=== PATIENT | female | born 1955 | race Caucasian/White ===

== ENCOUNTER 2022-11-10 13:39 | Outpatient (CLI) | payer MEDICARE, SELFPAY ==
--- NOTE | 2022-11-10 14:30 | MR_ITS ---
[address] [address] Phone:?[phone] Fax:?[phone] Referring Physician Information: Luis Jamison M.D. [id number] [facility] [address] Phone:?[phone] Fax:?[phone] Patient:Kendrick Ceballos D.O.B:?1955 Sex:?Female Phone:?[phone] [facility] MRN:?[id number] Exam Date:?11/10/2022 ? EXAM: MRI EXAMINATION OF THE RIGHT SHOULDER CLINICAL INFORMATION: Right shoulder pain. History of injuries. No history of surgery to this area. Possible rotator cuff tear. TECHNICAL INFORMATION: Coronal STIR as well as axial, sagittal and coronal PD and T2-weighted images were acquired. INTERPRETATION: Bones: There is no Hill-Sachs impaction deformity. No other evidence for an occult fracture or osseous contusion. No other bone marrow edema pattern identified. Rotator Cuff: There are mild to moderate changes of supraspinatus tendinopathy. Series 8 image 4 as well as series 6 images 11 and 12 demonstrate a 0.3 cm AP by 0.4 cm mediolateral undersurface partial-thickness tear involving the mid supraspinatus tendon insertion. This appears to involve one half of the tendon fiber thickness. Mild to moderate infraspinatus tendinopathy. Series 804 demonstrate a 3 mm shallow intrasubstance partial tear of the anterior tendon. The teres minor tendon is intact. The subscapularis tendon is intact. No appreciable rotator cuff muscle belly atrophy. Coracoacromial arch: There is no discrete subacromial osseous spur. The bony acromiohumeral interval is measuring 8 mm. There is no thickening identified of the coracoacromial ligament. Acromioclavicular joint: There is a moderate appearance of AC joint DJD. Associated undersurface spurring and resultant mild underlying supraspinatus deformity. Moderate thickening and edema signal involves the subacromial/subdeltoid bursa areas. Biceps tendon: The long head biceps tendon is intact and nondisplaced from the bicipital groove. Glenohumeral joint and labrum: No significant glenohumeral joint effusion. No discrete loose body within the joint. Changes of chondromalacia and associated full-thickness cartilage loss along the superior posterior periphery of the glenoid. Series 6 image 17 demonstrate an 8 mm segment of grade II to III chondromalacia overlying the super posterior aspect of the humeral head. There is tearing identified throughout the superior aspect of the labrum. Tearing continues superior posteriorly to the 10 o'clock position. No discrete paralabral cyst is identified. CONCLUSION: 1. Mild to moderate supraspinatus and infraspinatus tendinopathy. A very small undersurface partial-thickness tear of the supraspinatus insertion involves one half of the tendon fiber thickness. A very small and shallow intrasubstance partial tear involves the anterior infraspinatus tendon. 2. Moderate AC joint DJD with resultant mild underlying supraspinatus deformity. Moderate subacromial/subdeltoid bursitis. 3. Intact long head biceps tendon and without subluxation from the bicipital groove. 4. Chondromalacia with associated component of full-thickness cartilage loss along the superior posterior periphery of the glenoid. There is a small segment of grade II to III chondromalacia involving the superior posterior humeral head. 5. Tearing through the superior labrum continues superior posteriorly to the 10 o'clock position. No paralabral cyst. KES Electronically signed on 11/12/2022 1:05:00 PM by Newton Nguyen M.D.
== END 2022-11-10 13:40 | disposition home or self-care (01) ==
LOC: MRI 13:41
PROVIDERS: Visit Provider Orthopaedic Surgery Sports Medicine
DX: M25.511 Pain in right shoulder (principal)
CPT/HCPCS: 73221

== ENCOUNTER 2022-12-14 06:57 | Day surgery (SDC) | payer MEDICARE, SELFPAY ==
[2022-12-14] VITALS (11 sets, daily range): BP systolic 98–129; BP diastolic 58–79; PULSE 71–88; RESP 12–16; TEMP 36.6–36.7; O2SAT 93–98; BMI 23.7
[2022-12-14] MEDS: LACTATED RINGERS 1000 ML 1,000 ML 100 ML IV (07:20)
[2022-12-14] MEDS: fentaNYL 100 MCG/2 ML inj IVP (08:20)
[2022-12-14] MEDS: MIDAZOLAM HCL 1 MG/ML inj IVP (08:20)
--- NOTE | 2022-12-14 08:30 | SUR.PREOP ---
TIME?OUT:?0819 PT/RN/MDA?VERIFICATION?OF?SURGICAL?SITE,?PROCEDURE,?AND?CONSENT OBTAINED?PRIOR?TO?INVASIVE?PROCEDURE.
[2022-12-14] MEDS: CEFAZOLIN 2 GM in 0.9 % SODIUM CHLORIDE Mini-bag 100 ML IVPB (08:39)
--- NOTE | 2022-12-14 08:45 | P.NB_ITS ---
Nerve Block Nerve Block Time Seen by Provider: 08:19 Type of block requested by surgeon for post-operative analgesia: supraclavicular Side: right Time out performed: Yes Verification of patient name: Yes Verification of date of : Yes Site marking: site marked Name of person performing procedure: Kiko Continuous monitoring Was continuous monitoring of O2 sat, B/P, shop firer/fireman, recorded every 15 minutes?: Yes Procedure Checklist: sterile prep, needles and gloves Ultrasound guided. Images saved: Yes Medications given in 5ml increments after negative aspiration: Ropivicaine %: 0.5 mL: 20 Needle gauge: 22 Decadron (mg): 10 Precedex (mcg): 25 Patient tolerated procedure well: Yes Block Charges Block Charge (with Pro Fee): Brachial Plexus Use of Ultrasound Machine for Block: Yes- US Guidance/pain block
--- NOTE | 2022-12-14 08:45 | W.ANESCHARGE ---
Anesthesia Charges Start Date/Time Anesthesia Start Date: 12/14/22 Anesthesia Start Time: 08:28 Stop Date/Time Anesthesia Stop Date: 12/14/22 Anesthesia Stop Time: 10:05
[2022-12-14] MEDS: EPINEPHrine 1 MG in SODIUM CHLORIDE IRRIG SOLUTION 3,000 ML 9003 MG IRRIGATION ×2 (08:55→09:30)
--- NOTE | 2022-12-14 09:46 | PM.ORPRC ---
Procedure Note Date of procedure: 12/14/22 Procedure: PREOPERATIVE DIAGNOSES: 1. Right shoulder rotator cuff tear, partial-thickness upper border subscapularis and anterior supraspinatus 2. Right shoulder AC degenerative joint disease, moderate-severe 3. Right shoulder subacromial impingement syndrome. POSTOPERATIVE DIAGNOSES: 1. Right shoulder rotator cuff tear, partial-thickness upper border subscapularis and anterior supraspinatus 2. Right shoulder AC degenerative joint disease, moderate-severe 3. Right shoulder anterior and superior labral tearing 4. 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 Right shoulder subacromial impingement syndrome. NAME OF OPERATION: 1. Right shoulder arthroscopic rotator cuff upper border subscapularis repair. 2. Right shoulder arthroscopic distal clavicle excision 3. Right shoulder arthroscopic extensive glenohumeral debridement 4. Right shoulder arthroscopic bursectomy, subacromial decompression/partial acromioplasty. SURGEON: Luis Jamison MD BILL POSTER INSTALLER: Tariq Aranda PA-C. Of note, a skilled assistant terminal manager was critical for this case to aide in patient positioning, suture manipulation, arm positioning, instrument positioning, and closure. ANESTHESIA: General plus preoperative supraclavicular block. EBL: Less than 25 minutes IMPLANTS: Single 4.75 mm BioComposite SwiveLock suture anchor-Arthrex COMPLICATIONS: None evident INDICATIONS: The patient is a pleasant, 67-year-old female who has experienced right shoulder pain that has been increasing in recent time. Physical exam and imaging were consistent with a rotator cuff tear. Given their findings, as well as the weakness and pain, and inadequate response to nonoperative management, recommendation was made for surgery. FINDINGS: Exam under anesthesia revealed stable shoulder with excellent range of motion. The diagnostic arthroscopy revealed grade 3-4 chondromalacia humeral head the central medial aspect measuring 8 mm in diameter with loose chondral flaps. Also anterior and anteroinferior glenoid grade 3 chondromalacia with some loose chondral flaps measuring 6 x 15 mm (A-P, cephalad-caudad, respectively). The Subscapularis tendon was torn from its upper border with mild retraction. The long head of the biceps tendon was intact. The superior rotator cuff tendon was found to be torn in low-grade partial-thickness manner on the articular side (less than 2 mm). The labrum was degeneratively frayed and torn in the anterior and superior aspects. No loose bodies were identified within the pouch or subscapularis recess. PROCEDURE: Following a thorough discussion of risks, benefits, and alternatives, consent was obtained and the right shoulder was marked. The patient was brought to the operating room and placed supine on the operating table. Induction of anesthesia was completed after preoperative supraclavicular block was administered in preop holding. Appropriate time out was performed identifying proper patient, site, and procedure. 2 g IV Ancef was administered within 1 hour of incision preoperatively. The right upper extremity was prepped and draped in the appropriate sterile fashion using ChloraPrep prep. This was after the patient was positioned in the beach chair with their head in neutral alignment and all bony prominences well padded. The shoulder was insufflated with 20mL of normal saline via an 18g spinal needle from a posterior approach. An 11 blade skin incision allowed a blunt trochar to be inserted and diagnostic arthroscopy to be performed with the findings as noted above. An anterior portal was established with an outside in technique. This allowed the probe to be inserted and confirm the diagnostic arthroscopic findings. The shaver was then inserted and allowed debridement of the anterior and superior labrum as well as the loose chondral flaps on both the humeral head chondral tissue and glenoid chondral tissue. Following this, the upper border subscapularis was repaired after debriding the lesser tuberosity with the shaver and [place] cautery. Subscapularis was captured in horizontal mattress fashion with a fiber tape suture. The tails were brought to a single anchor in the lesser tuberosity with excellent reapproximation of the subscap tendon and good excursion/tension. Thereafter, the subacromial space was entered. Here, a complete bursectomy and partial acromioplasty/subacromial decompression was performed with a combination of radiofrequency ablator, the shaver, and a 5.5 mm bur. Additionally, distal clavicle excision was performed with the bur. 8 mm of distal clavicle was resected based on the with of our bur. Further inspection of the supraspinatus and infraspinatus rotator cuff was performed. This identified no marck bursal sided tearing. On the deep surface in the glenohumeral joint, we appreciated less than 2 mm of low-grade partial-thickness supraspinatus tearing. Probing with the probe, the torpedo shaver, and other instruments revealed no evidence of weak tissue or poor integrity. Therefore, no supraspinatus repair was felt to be indicated. The shoulder was placed through range of motion and found to be stable. The rotator cuff was re-probed and found to be stable. Instruments were removed. Excess fluid was drained, closure performed with 4-0 Monocryl and Steri-Strips. Dressings were applied. Sling was applied. The patient was awoken from anesthesia and transferred to the PACU in stable condition. A skilled assistant terminal manager was critical for this case to aid in patient positioning, limb positioning, skill to manipulate arthroscopic instruments and camera, suture management, patient safety, and closure. PLAN: 1. Elbow, forearm, wrist and digit range of motion as tolerated. 2. Encouraged ice. 3. Percocet for pain as needed. 4. Sling at all times except for ROM and showering. 5. Follow up with PA visit in 1-2 weeks for wound check. Initiate physical therapy following that visit for passive range of motion. Initiate active assisted range of motion at 3 weeks. May do pendulums now.
--- NOTE | 2022-12-14 10:12 | W.ANESCHARGE ---
Anesthesia Charges Start Date/Time Anesthesia Start Date: 12/14/22 Anesthesia Start Time: 08:28 Stop Date/Time Anesthesia Stop Date: 12/14/22 Anesthesia Stop Time: 10:05
== END 2022-12-14 11:10 | disposition home or self-care (01) ==
PROVIDERS: Visit Provider Orthopaedic Surgery Sports Medicine
PROC: (CPT 29805; principal; 2022-12-14 08:45)
DX: M75.101 Unspecified rotator cuff tear or rupture of right shoulder, not specified as traumatic (principal); M19.011 Primary osteoarthritis, right shoulder; M75.41 Impingement syndrome of right shoulder; S43.431A Superior glenoid labrum lesion of right shoulder, initial encounter; M94.211 Chondromalacia, right shoulder
CPT/HCPCS: 29826; 29827; 29824; 29823; 01630; 64415; 76942; C1713; J0171; J0330; J0690; J1100; J2250; J2370; J2405; J2704; J2795; J3010; J7120; L3670

== ENCOUNTER 2024-07-05 12:47 | Outpatient (CLI) | payer MEDICARE, SELFPAY ==
--- OUTSIDE RECORDS SUMMARY | 2024-07-05 12:52 | XMS_ITS | Clinical Summary ---
Author Organization [facility] Address [place], [place] [address] Care Team Providers Care Solid Propellant Processor Name Role Phone Clinic, No Pcp Or Primary Care Provider Unavaila ble Medications Medication Sig Dispensed Refills Start Date End Date Status omeprazole (PRILOSEC) 40 mg Delayed-Release capsule Take 40 mg by mouth once daily before a meal. Active FLUoxetine (PROZAC) 20 mg capsule Take 20 mg by mouth once daily. Active pramipexole (MIRAPEX) 0.5 mg tablet Take 0.5 mg by mouth. Active Social History Tobacco Use Types Packs/Day Years Used Date Smoking Tobacco: Never Assessed Sex and Gender Information Value Date Recorded Sex Assigned at Not on file Gender Identity Not on file Sexual Orientation Not on file Last Filed Vital Signs Vital Sign Reading Time Taken Comments Blood Pressure - - Pulse 72 12/30/2023 10:53 AM [facility] Temperature - - Respiratory Rate - - Oxygen Saturation 97% 12/30/2023 10:53 AM [facility] Inhaled Oxygen Concentration - - Weight 67.1 kg (148 lb) 12/30/2023 10:53 AM [facility] Height - - Body Mass Index - - Plan of Treatment Health Maintenance Due Date Last Done Comments Tdap 1964 Depression screening for age 12+ 1965 BMI (ht and wt on same day) for age 18+ 1971 Hepatitis C screening for age 18-79 1971 Tetanus booster 1973 Colonoscopy through age 75 1998 Lipids for age 45-75 1998 Mammogram for age 45-75 1998 Zoster (shingles) series for age 50+ (1 of 2) 11/19/19 04 DEXA/DXA scan for age 65+ 2018 Medicare Wellness for age 65+ 2018 Pneumococcal series for age 65+ (1 of 1 - PCV) 019 COVID-19 vaccine series ( - season) 4 Influenza for age 65+ 06/25/2024 Care Teams Solid Propellant Processor Relationship Specialty Start Date End Date Clinic, No Pcp Or . PCP - General 12/01/23
--- OUTSIDE RECORDS SUMMARY | 2024-07-05 12:52 | XMS_ITS | Clinical Summary ---
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 For routine questions regarding patient records, call [phone] during business hours, M-F 8:00 AM - 5:00 PM Central Time. Record requests for emergency care only can be directed to [phone] at any time.[facility] Allergies No known active allergies Medications Medication Sig Dispensed Refills Start Date End Date Status calcium citrate-vitamin D3 (CITRACAL+D) 1,184 mg (250 mg calcium)-200 unit per tablet Take 1 tablet by mouth daily. 11/22/2014 Active pramipexole (MIRAPEX) 0.5 mg tablet Take 1 tablet (0.5 mg total) by mouth 2 (two) times a day. Please come to the clinic for follow-up 180 tablet 03/04/2023 Active omeprazole (PriLOSEC) [address] capsule Take 1 capsule (40 mg total) by mouth every morning before breakfast. Please come to the clinic for follow-up 90 capsule 03/04/2023 Active traZODone (DesyreL) 50 mg tablet Take 0.5 tablets (25 mg total) by mouth as needed for sleep. 45 tablet 06/21/2024 Active apixaban (Eliquis) 5 mg tablet Take 1 tablet (5 mg total) by mouth 2 (two) times a day. 120 tablet 2 06/21/2024 Active aspirin 81 mg chewable tablet Chew 1 tablet (81 mg total) daily with morning meal. 90 tablet 3 06/22/2024 Active losartan (Cozaar) 25 mg tablet Take 0.5 tablets (12.5 mg total) by mouth daily. 45 tablet 3 06/22/2024 Active metoprolol succinate (Toprol XL) 25 mg 24 hr tablet Take 1 tablet (25 mg total) by mouth daily. Do not crush or chew. 90 tablet 3 06/22/2024 Active rosuvastatin (Crestor) 5 mg tablet Take 1 tablet (5 mg total) by mouth every other day. 45 tablet 3 06/21/2024 Active traZODone (DESYREL) 50 mg tablet Take 1 tablet (50 mg total) by mouth daily. 90 tablet 3 08/19/2018 06/21/20 24 Discontinued co-enzyme Q-10 (CO Q-10) 100 mg capsule Take 1 capsule by mouth daily. 11/22/2014 06/19/20 24 Discontinued betamethasone dipropionate (DIPROLENE) 0.05 % cream APPLY TO AFFECTED AREA(S) ONCE DAILY 10/20/2019 06/19/20 24 Discontinued benzalkonium chloride (REVITADERM WOUND CARE TOP) Apply topically. 06/19/20 24 Discontinued lovastatin (MEVACOR) 10 mg tablet Take 1 tablet (10 mg total) by mouth daily. 90 tablet 3 11/27/2020 06/19/20 24 Discontinued clobetasoL (TEMOVATE) 0.05 % ointment Apply once a day up to 5 out of 7 days per week 60 g 3 12/02/2020 06/19/20 24 Discontinued clobetasoL (TEMOVATE) 0.05 % ointment Apply 1 application topically 2 (two) times a day. 60 g 3 10/12/2022 06/19/20 24 Discontinued FLUoxetine (PROzac) 20 mg capsule TAKE ONE CAPSULE BY MOUTH EVERY DAY 90 capsule 3 03/02/2023 06/19/20 24 Discontinued neomycin-polymyxi n-dexamethasone (Maxitrol) 3.5mg/mL-10,000 unit/mL-0.1 % ophthalmic suspension Administer 1 drop into the left eye 4 (four) times a day for 10 days. 5 mL 06/19/2024 06/29/20 24 Active Problems Problem Noted Date Diagnosed Date Non-ST Elevation Myocardial Infarction Dry Eye Syndrome Bilateral 05/28/2016 Migraine Headache Ophthalmic 05/28/2016 Presbyopia 05/28/2016 Primary Osteoarthritis First Carpal Metacarpal J oint Left 12/12/2015 Edentulous Partial 12/06/2012 Depressive Disorder 09/26/2012 Overview (03/16/2017): Depression* per external medical records Polyarthralgia 09/20/2012 Malposed Teeth 05/19/2012 Reflux Esophageal 01/13/2012 Restless Leg Syndrome 01/13/2012 Hyperlipidemia 07/25/2010 Pain Neck 12/16/2009 Encounters Date Type Department Care Team Description 06/30/2024 Clinical Communication Department of Cardiac Rehabilitation in [place], [place] [address] [place] [address] Devin Murray, ANALIA Cardiac Rehab (Initial contact) 06/21/2024 Clinical Communication Department of Cardiovascular Diseases in [place], [place] [address] [place] [address] Gracy Wynn APRN, C.N.P. 06/21/2024 Clinical Communication Department of Cardiovascular Medicine in [place], [place] [address] [place] [phone] Gracy Wynn APRN, C.N.P. 06/20/2024 3:56 PM CDT - 06/20/2024 5:11 PM CDT Surgery Division of Cardiovascular Diseases in [place], [place] [address] [place] [phone] Alex Tam M.D. Coronary Angiography 06/19/2024 10:36 PM CDT - 06/21/2024 5:59 PM CDT Hospital Encounter [facility], [facility], [facility], Fifth Floor [address] [place] [phone] Kb Underwood M.D., Ph.D. Fredrick Gutierrez M.D. Non-ST Elevation Myocardial Infarction (HCC) (Primary Dx) Discharge Disposition: Home or Self Care 06/19/2024 6:38 PM CDT - 06/19/2024 9:29 PM CDT Emergency [facility] [address] [facility] [place] [phone] Sayra Robledo P.A.-C., Mackenzie Simmons Kolten, M.D. Non-ST Elevation Myocardial Infarction (HCC) (Primary Dx) Discharge Disposition: Acute Care Hospital 06/19/2024 10:30 AM CDT Office Visit Department of Ophthalmology in [place], [place] [address] [facility] [place] [phone] Jonathan Estrada O.D. Dry Eye Syndrome Bilateral (Primary Dx); Punctate Keratitis Left Eye Discharge Disposition: Home or Self Care 06/19/2024 Intake [facility] 05/05/2024 Clinical Communication Primary [facility] on Demand at [address] [phone] Chavez Graf M.D. from Last 3 Months Immunizations Name Administration Dates Next Due HZV (ZOSTAVAX) 08/14/2016,07/17/2016 Influenza TIV (IM) 06/24/2019 Influenza, Unspecified 08/29/2012,08/06/2011, PCV13 06/24/2019 Tdap 02/20/2016 influenza trivalent LAIV (Na erik) (2 years through 49 years) 06/25/2013 Family History Medical History Relation Name Comments DESIREE disease Brother Alcohol abuse Father Sudheer Dahl Aneurysm Father Sudheer Dahl Cataracts Father Sudheer Dahl Dementia Father Sudheer Dahl Diabetes Father Sudheer Dahl Heart failure Father Sudheer Dahl Hyperlipidemia Father Sudheer Dahl Hypertension Father Sudheer Dahl Kidney failure Father Sudheer Dahl Parkinsonism Father Sudheer Dahl Parkinsons disease Father Sudheer Dahl Peripheral vascular disease Father Sudheer Dahl Skin cancer Father Sudheer Dahl Stroke Father Sudheer Dahl Thyroid disease Maternal Grandmother Alpha Walk Anxiety disorder Mother [place] Breast cancer Mother Kym [place] Diagnosed at 8 7 Cataracts Mother [place] Depression Mother [place] Hypertension Mother [place] Heart disease Paternal Grandfather Rheum arthritis Paternal Grandmother Ceciliadean Costa Breast cancer Sister 1 Tish Garzon diagnosed wit h Her2 positive Hypertension Sister 1 Tish Garzon Thyroid disease Sister 1 Tish Garzon Rheum arthritis Sister 2 Nicolasa Elizabeth Thyroid disease Sister 2 Nicolasa Elizabeth Heart disease Uncle maternal Relation Name Status Comments Brother Father Sudheer Costa Maternal Grandmother Corey Walk Mother Kym Costa Paternal Grandfather Paternal Grandmother Cecilia Costa Sister 1 Tish Garzon Sister 2 Nicolasa Elizabeth Uncle maternal Social History Tobacco Use Types Packs/Day Years Used Date Smoking Tobacco: Former Cigarettes 0.5 21 Smokeless Tobacco: Never Tobacco Cessation:Counseling Given: Not Answered Comments:quit 25+ years ago Alcohol Use Standard Drinks/Week Comments Yes 2 (1 standard drink = 0.6 oz pur e alcohol) [facility] Utilities Answer Date Recorded In the past 12 months has e [place], gas, oil, or water [employer] threatened to shut off services in your home? No 06/19/2024 Humiliation, Afraid, Rape, and Kick questionnair e Answer Date Recorded Within the last year, have y ou been afraid of your partner or ex-partner? No 06/19/2024 Within the last year, have y ou been humiliated or emotionally abused in other ways by your partner or ex-partner? No Within the last year, have y ou been kicked, hit, slapped, or otherwise physically hurt by your partner or ex-partner? No 06/19/2024 Within the last year, have y ou been raped or forced to have any kind of sexual activity by your partner or ex-partner? No 06/19/2024 Social Connection and Isolat ion Panel [NHANES] Answer Date Recorded Frequency of Communication w ith Friends and Family More than three times a week 07/10/2019 Frequency of Social Gatherin gs with Friends and Family More than three times a week 07/10/2019 Attends Yarsanism Services Patient declined 06/25 Active Member of Clubs or Organizations No 07/10/2019 Attends Club or Organization Meetings Not on gorge e 07/10/2019 Marital Status 07/10/2019 AUDIT-C Answer Date Recorded Frequency of Alcohol Consumption 2-4 times a mon th 07/10/2019 Average Number of Drinks 1 or 2 019 Frequency of Binge Drinking Never 06/25 Overall Financial Resource Strain (CARDIA) Answe r Date Recorded Difficulty of Paying Living Expenses Not hard at all 07/10/2019 PHQ-2 Answer Date Recorded PHQ-2 Score 0 01/10/2020 [facility] - Occupational Stress Questionnaire Answer Date Recorded Feeling of Stress Only a little 07/10/2019 Exercise Vital Sign Answer Date Recorde d On average, how many days pe r week do you engage in moderate to strenuous exercise (like a brisk walk)? 4 days 06/19/2024 On average, how many minutes do you engage in exercise at this level? 40 min 06/19/2024 Hunger Vital Sign Answer Date Recorded Within the past 12 months, y ou worried that your food would run out before you got the money to buy more. Never true 06/19/20 Within the past 12 months, t he food you bought just didn't last and you didn't have money to get more. Never true 06/19/2024 PRAPARE - Transportation Answer Date Re corded In the past 12 months, has l ack of transportation kept you from medical appointments or from getting medications? No 05/26 In the past 12 months, has l ack of transportation kept you from meetings, work, or from getting things needed for daily living? No 06/19/2024 Depression Answer Date Recor ded PHQ-9 Total Score (max 27) 0 01/09 Nutrition Answer Date Recorded On average, how many serving s of fruits and vegetables do you eat per day (serving size is equal to 1 cup or approximately the size of a tennis ball)? 3-5 06/19/2024 Dental Answer Date Recorded Dental: Regular Dentist Yes 06/19/20 Employment Answer Date Recorded Employment status Retired 06/19/2024 Housing Stability Answer Date Recorded What is your living situation today? I have a [facility] place to live 06/19/2024 Education Answer Date Recorded What is the highest level of school you have completed or the highest degree you have received? Associate degree: academic program 07/10/2019 Sex and Gender Information Value Date Recorded Sex Assigned at Female 09/26/2018 7:57 PM CAN INSPECTOR Gender Identity Female 09/26/2018 7:57 PM CAN INSPECTOR Sexual Orientation Straight 09/26/2018 7: 57 PM CAN INSPECTOR Last Filed Vital Signs Vital Sign Reading Time Taken Comments Blood Pressure 112/79 06/21/2024 3:15 PM CDT Pulse 81 06/21/2024 3:15 PM CDT Temperature 36.7 ??C (98.1 ??F) 06/21/2024 3:15 PM CD T Respiratory Rate 36 06/21/2024 4:45 PM CDT Oxygen Saturation 97% 06/21/2024 3:15 PM CDT Inhaled Oxygen Concentration - - Weight 64 kg (141 lb 1.5 oz) 06/21/2024 6:00 AM CDT Height 165.1 cm (5' 5) 06/19/2024 11:15 PM CDT Body Mass Index 23.48 06/19/2024 11:15 PM CDT Plan of Treatment Upcoming Encounters Date Type Department Care Team (Latest Contact Info) Description 07/18/2024 8:00 AM CDT Appointment Department of Cardiac Rehabilitation in [place], [place] [address] [place] [phone] Fredrick Gutierrez M.D. [address] [place] [phone] 07/18/2024 12:20 PM CDT Appointment Department of Cardiovascular Diseases in [address] [phone] Gracy Wynn APRN, C.N.P. [address] [place] [phone] 07/20/2024 3:00 PM CDT Comprehensive Visit Department of Cardiovascular Diseases in [place] [address] [place] [phone] Malou Mckenzie APRN, C.N.P. [address] [place] [phone] Discharge Disposition: Home or Self Care Health Maintenance Due Date Last Done Comments CT Colonography 1955 Depression Monitoring (PHQ-9) 1955 FIT 1955 Hepatitis C Screening 1955 Office Visit for Blood Press ure Check / Re-check 1955 Zoster Vaccines (2 of 3) 10/09/2016 08/14/2016, 06/26 Colonoscopy 06/22/2022 06/22/2012, 06/22/2012 COVID-19 Vaccine (1 - 2022-2 4 season) 2024 Influenza Vaccine (#1) 2024 , 06/24/2019, 08/23/2018, Additional history exists Cologuard 01/12/2025 01/12/2022 Colorectal Cancer Screening 01/12/2025 Mammogram 02/10/2025 02/11/2024, 01/23, 10/30/2022, Additional history exists Creatinine Level (Kidney Fun ction Test) 06/27/2025 06/27/2024, 06/21/2024, 06/20/2024, Additional history exists Potassium Level 06/27/2025 06/27/2024, 05/26, 06/20/2024, Additional history exists Sodium Level 06/27/2025 06/27/2024, 05/26, 06/20/2024, Additional history exists DTaP,Tdap,and Td Vaccines (2 - Td or Tdap) 02/19/2026 02/20/2016 Fasting Glucose for Diabetes Screening 06/27/2027 06/27/2024, 06/21/2024, 06/20/2024, Additional history exists Lipid (Cholesterol) Screening 06/19/2029, 07/26/2018, 07/09/2017, Additional history exists Cervical Cancer Screening Discontinued 02/12/2016, Pneumococcal vaccine (65+ years) Completed 08/15/20, 06/24/2019 Fall Risk Screen (Annual) Completed 06/19/2024 Medical Devices Implanted 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 pins/screws/ rods Tooth [employer] Description:Device Manufactu rer - [employer]. Body Location - tooth-19. Device Status Text - [id number]. Brane Abutment Healing Rp 5.0x3.0 - [place] [id number] Implanted:Qty: 1 on 12/23/2012 Hardware e.g. pins/screws/ rods Tooth [employer] Description:Device Manufactu rer - [employer]. Body Location - tooth-19. Device Status Text - [id number]. Procedures Procedure Name Priority Date/Time Associated Diagnosis Comments BASIC METABOLIC PANEL, S/P Routine 06/21/2024 7:57 AM CDT CBC WITHOUT DIFFERENTIAL, B Routine 06/21/2024 7:57 AM CDT HEPARIN LEVEL ANTI-XA ASSAY, P Routine 06/21/2024 7:56 AM CDT C-REACTIVE PROTEIN (CRP), S/P Routine 06/21/2024 7:54 AM CDT CARDIAC CATHETERIZATION Routine 06/20/2024 5:21 PM CDT Non-ST Elevation Myocardial Infarction (HCC) ADULT OXYGEN THERAPY Routine 06/20/2024 4:46 PM CDT (TTE) 2D ECHO DOPPLER COLOR AND CONTRAST Routine 06/20/2024 12:39 PM CDT ADULT OXYGEN THERAPY Routine 06/20/2024 8:01 AM CDT HEPARIN LEVEL ANTI-XA ASSAY, P Timed 06/20/2024 7:43 AM CDT MAGNESIUM, S Routine 06/20/2024 7:43 AM CDT BASIC METABOLIC PANEL, S/P Routine 06/20/2024 7:43 AM CDT CBC WITHOUT DIFFERENTIAL, B Routine 06/20/2024 7:43 AM CDT HEPARIN LEVEL ANTI-XA ASSAY, P Timed 06/20/2024 12:51 AM CDT TROPONIN T, 5TH GEN, P Timed 12:51 AM CDT ADULT OXYGEN THERAPY Routine 06/19/2024 11:31 PM CDT ADULT OXYGEN THERAPY Routine 06/19/2024 11:31 PM CDT HEMOGLOBIN A1C, B STAT 06/19/2024 11:17 PM CDT LIPID PANEL, S STAT 06/19/2024 11:17 PM CDT ACTIVATED PARTIAL THROMBOPLASTIN TIME (APTT), P STAT 06/19/2024 11:17 PM CDT ECG Routine 06/19/2024 10:51 PM CDT TROPONIN T, 2H/6H REFLEX, 5TH GEN, P Timed 06/19/2024 9:11 PM CDT CRITICAL CARE Routine 06/19/2024 8:05 PM CDT ECG STAT 06/19/2024 7:36 PM CDT DX CHEST PORTABLE 1 VIEW RAD - Emergent (Fastest; for the most critically ill patients) 06/19/2024 7:22 PM CDT PROTHROMBIN TIME (PT), P STAT 06/19/2024 7:05 PM CDT D-DIMER, P STAT 06/19/2024 7:05 PM CDT COMPREHENSIVE METABOLIC PANEL, S/P STAT 06/19/2024 7:05 PM CDT CBC WITH DIFFERENTIAL, B STAT 06/19/2024 7:05 PM CDT TROPONIN T, BASELINE, 5TH GEN, P STAT 06/19/2024 7:04 PM CDT NT-PRO B-TYPE NATRIURETIC PEPTIDE (BNP), S STAT 06/19/2024 7:04 PM CDT ECG STAT 06/19/2024 6:43 PM CDT BI BREAST SCREENING BILATERAL WITH TOMOSYNTHESIS RAD - Routine (most inpatients and all outpatients) 10/30/2022 11:10 AM CAN INSPECTOR Screening Mammogram Breast Cancer PATHOLOGY PUMP SERVICER SUPERVISOR CYTOLOGY Routine 6 12:00 AM CDT from Last 3 Months or Most Recently Relevant to Health Maintenance Results * CBC without Differential (06/21/2024 7:57 AM CDT) Only the most recent of2 resultswithin the time period is included. Hemoglobin 13.9 11.6 - 15.0 g/dL 06/21/2024 9:19 AM CDT DTL Hematocrit 43.0 35.5 - 44.9 % 06/21/2024 9:19 AM CDT DTL Erythrocytes 4.95 3.92 - 5.13 x10(12)/L 06/21/2024 9:19 AM CDT DTL MCV 86.9 78.2 - 97.9 fL 06/21/2024 9:19 AM CDT DTL RBC Distrib Width 12.4 12.2 - 16.1 % 06/21/2024 9:19 AM CDT DTL Platelet Count 337 157 - 371 x10(9)/L 06/21/2024 9:19 AM CDT DTL Leukocytes 6.9 3.4 - 9.6 x10(9)/L 06/21/2024 9:19 AM CDT DTL Blood (Blood, Venous) 06/21/2024 7:57 AM CDT 06/21/2024 8:40 AM CDT Rich Duff P.A.-C., M.S. LAB BLOOD ADD-ON [facility] [address] [place] [address], [facility] DTL [facility] [address] [place] [address] * Basic Metabolic Panel (06/21/2024 7:57 AM CDT) Only the most recent of2 resultswithin the time period is included. Potassium, S 4.8 3.6 - 5.2 mmol/L 06/21/2024 9:45 AM CDT DTL Sodium, S 141 135 - 145 mmol/L 06/21/2024 9:45 AM CDT DTL Chloride, S 103 98 - 107 mmol/L 06/21/2024 9:45 AM CDT DTL Bicarbonate, S 27 22 - 29 mmol/L 06/21/2024 9:45 AM CDT DTL Anion Gap 11 7 - 15 06/21/2024 9:45 AM CDT DTL BUN (Blood Urea Nitrogen), S 15 6 - 21 mg/dL 06/21/2024 9:45 AM CDT DTL Creatinine 1.01 0.59 - 1.04 mg/dL 06/21/2024 9:45 AM CDT DTL Estimated GFR (eGFR) 60 >=60 mL/min/BSA 06/21/2024 9:45 AM CDT DTL Comment: Estimated GFR calculated using the 2020 CKD_EPI creatinine equation. Calcium, Total, S 9.4 8.8 - 10.2 mg/dL 06/21/2024 9:45 AM CDT DTL Glucose, S 99 70 - 140 mg/dL 06/21/2024 9:45 AM CDT DTL Blood (Blood, Venous) 06/21/2024 7:57 AM CDT 06/21/2024 9:00 AM CDT Gracy Wynn APRN, C.N.P. LAB BLOOD AD D-ON [facility] [address] [place] [address], [facility] [address] [place] [address] * Heparin Anti-Xa Assay (06/21/2024 7:56 AM CDT) Only the most recent of3 resultswithin the time period is included. Heparin Anti-Xa, P 0.46 IU/mL 2023 9:45 AM CDT DTL Comment: UFH therapeutic range: ?? 0.30-0.70 IU/mL LMWH therapeutic range: 0.50-1.00 IU/mL 0.50-1.00 IU/mL for twice daily dosing ?? 1.00-2.00 IU/mL for once daily dosing (sample obtained 4-6 hours following subcutaneous injection) LMWH prophylactic range:0.10-0.30 IU/mL ----ADDITIONAL INFORMATION---- Heparin Anti-Xa is used to measure heparin concentrations in patients receiving low molecular weight heparin (LMWH) or unfractionated heparin (UFH). Blood (Blood, Venous) 06/21/2024 7:56 AM CDT 06/21/2024 8:49 AM CDT Gracy Wynn APRN, C.N.P. LAB BLOOD NO N ADD-ON Performing Organization Address [facility] Co de Phone Number [facility] [address] [place] [address], [facility] [address] [place] [address] * (ABNORMAL) CRP (C-Reactive Protein) (06/21/2024 7:54 AM CDT) [facility] C-Reactive Protein (CRP), S 8.7(H) <5.0 mg/L 06/21/2024 10:50 AM CDT DTL Blood (Blood, Venous) 06/21/2024 7:54 AM CDT 06/21/2024 10:22 AM CDT Gracy Wynn APRN, C.N.P. LAB BLOOD AD D-ON Performing Organization Address [facility] Co de Phone Number [facility] [address] [place] [address], [place] [address] * CORONARY ANGIOGRAPHY (06/20/2024 5:21 PM CDT) Anatomical Region Laterality Modality X-Ray Angiograph y 06/20/2024 5:00 PM CDT Narrative 06/20/2024 5:28 PM CDT For the complete report, see the Order-Level Documents. PROCEDURE TYPES 1. ??CORONARY ANGIOGRAPHY ?? FINAL DIAGNOSIS 1. ??Acute coronary syndrome ?? 2. ??Normal coronary arteries ?? 3. ??Moderate coronary artery myocardial bridge ?? PRE-PROCEDURE DIAGNOSIS 1. ??Non-ST Elevation Myocardial Infarction (HCC) ?? HEMODYNAMICS SUMMARY Mildly reduced systemic aortic systolic pressure. ?? CORONARY DIAGNOSTIC SUMMARY Coronary artery dominance is balanced. Normal coronary arteries. ?? RADIATION DOSE DATA Procedure cumulative skin dose (mGy): 186.23 Procedure cumulative dose area product (Gy-cm2): 10.28 Fluoro Time (Min): 2.53 CONTRAST DOSE DATA iohexoL 350 mg iodine/mL solution (Omnipaque): 50mL For the complete report, see the Order-Level Documents. Procedure Note Alex Tam M.D. - 06/20/2024 For the complete report, see the Order-Level Documents. PROCEDURE TYPES 1. CORONARY ANGIOGRAPHY FINAL DIAGNOSIS 1. Acute coronary syndrome 2. Normal coronary arteries 3. Moderate coronary artery myocardial bridge PRE-PROCEDURE DIAGNOSIS 1. Non-ST Elevation Myocardial Infarction (HCC) HEMODYNAMICS SUMMARY Mildly reduced systemic aortic systolic pressure. CORONARY DIAGNOSTIC SUMMARY Coronary artery dominance is balanced. Normal coronary arteries. RADIATION DOSE DATA Procedure cumulative skin dose (mGy): 186.23 Procedure cumulative dose area product (Gy-cm2): 10.28 Fluoro Time (Min): 2.53 CONTRAST DOSE DATA iohexoL 350 mg iodine/mL solution (Omnipaque): 50mL For the complete report, see the Order-Level Documents. Henrietta Conroy P.A.-C. CV CARDIAC CATH PRO CEDURES * (TTE) 2D ECHO DOPPLER COLOR AND CONTRAST (06/20/2024 12:39 PM CDT) Ejection Fraction 37 MC CV EIMS Mid-Ascending Aorta 34 MC CV EIMS Wall Motion Score Index 2.19 MC CV EIMS LV Mass Index 96 MC CV EIMS LV End-Diastolic Diameter 47 MC CV EIMS LV End-Systolic Diameter 36 MC CV EIMS MV E Velocity 0.4 MC CV EIMS MV A Velocity 0.6 MC CV EIMS MV E/A 0.67 MC CV EIMS MV e' Velocity Medial 0.05 MC CV EIMS MV e' Velocity Lateral 0.07 MC CV EIMS MV E/e' Medial 8 MC CV EIMS MV E/e' Lateral 5.7 MC CV EIMS Left ventricular stroke volume index 55 MC CV EIMS Cardiac Output 5.3 MC CV EIMS Cardiac Index 3.12 MC CV EIMS LV Interventricular Septal Wall Thickness 10 MC CV EIMS LV Posterior Wall Thickness 10 MC CV EIMS LV Relative Wall Thickness 43 MC CV EIMS TAPSE 17 MC CV EIMS Tricuspid Annular S? 0.09 MC CV EIMS TR Vmax 2.01 MC CV EIMS RA Pressure 5 MC CV EIMS RV Systolic Pressure 21 MC CV EIMS Estimated diastolic pulmonary artery pressure 11 MC CV EIMS LA Volume Index 24 MC CV EIMS Anatomical Region Laterality Modality Echocardiography 06/20/2024 10:5 9 AM CDT Impressions 06/20/2024 1:40 PM CDT Echo performed at the patient's bedside. Intravenous Definity ultrasound enhancement agent(s) administered to enhance endocardial border definition. LEFT VENTRICLE:Normal left ventricular chamber size. Increased left ventricular outflow tract flow velocities. Sigmoid ventricular septum with basal septal prominence: 15 mm Left ventricular outflow tract maximal instantaneous Doppler gradient rest 25 mm Hg; Valsalva 34 mm Hg. Calculated 2-D linear left ventricular ejection fraction 41%. Calculated 2-D monoplane volumetric left ventricular ejection fraction 37%. Regional wall motion abnormalities were present (see wall motion graphics). RIGHT VENTRICLE:Normal right ventricular chamber size by visual estimate. Normal right ventricular systolic function. Estimated right ventricular systolic pressure 21 mmHg (right atrial pressure of 5 mmHg). ATRIA:Normal left atrial size. Left atrial volume index 24 ml/m2. Normal right atrial size. CARDIAC VALVES:Trileaflet aortic valve. Normal aortic valve. No aortic valve regurgitation. Thickened mitral valve. Moderate mitral valve regurgitation. Normal pulmonary valve. Normal pulmonary valve systolic velocities. Mild pulmonary valve regurgitation. Normal tricuspid valve. Mild-moderate tricuspid valve regurgitation. OTHER ECHO FINDINGS:Normal inferior vena cava size with normal inspiratory collapse (>50%). Normal mid ascending aorta diameter of 34 mm. No abdominal aortic aneurysm. Normal abdominal aorta Doppler flow pattern. No atrial level shunt by color flow imaging. No ??pericardial effusion. Attempts were made to optimize the echocardiographic images and two or more left ventricular segments were not visualized adequately to evaluate cardiac structure. The patient's current allergies and medications have been screened. Imaging enhancement agent administered per Echocardiography Contrast Administration Protocol Reference Document [id number] Rev 02/05/2022. Patient met an inclusion criterion and did not have contraindications in screening sections. For the complete report, see the Order-Level Documents. Narrative 06/20/2024 1:40 PM CDT For the complete report, see the Order-Level Documents. Hemodynamics Heart Rate: 61 BPM Blood Pressure: 104 / 81 mmHg ECG: Sinus rhythm Final Impressions 1. Normal left ventricular chamber size. 2. Calculated 2-D monoplane volumetric left ventricular ejection fraction 37%. 3. Regional wall motion abnormalities were present (see wall motion graphics) , most notable for aneurysmal and akinetic LV apex. ??Differential diagnosis for regional wall motion abnormality distribution is LAD stenosis versus stress cardiomyopathy. ?? Perfusion of the LV apex seems reduced, increasing the likelihood of LAD occlusive disease. 4. Apical left ventricular thrombus (possible). ??There is no overt bulky thrombus projecting from the apical endocardium. ??However, from the apical long axis views (clip 108, frame #124; clip 109, frame #132), there are changes suspicious for laminated ?? thrombus (2 mm thick) at the apical cap. ??There is also sluggish flow at the LV apex on the contrast images, indicating a high risk milieu for thrombus formation. 5. Sigmoid ventricular septum with basal septal prominence: 15 mm 6. 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 7. Left ventricular outflow tract maximal instantaneous Doppler gradient rest 25 mm Hg; Valsalva 34 mm Hg. 8. Normal left ventricular filling pressure. 9. Moderate mitral valve regurgitation. 10. Mild-moderate tricuspid valve regurgitation. 11. Estimated right ventricular systolic pressure 21 mmHg (right atrial pressure of 5 mmHg). 12. Normal right ventricular chamber size by visual estimate. 13. Normal right ventricular systolic function. 14. Normal inferior vena cava size with normal inspiratory collapse (>50%). 15. Emergency communication to Gracy Wynn, PRE BILLING SPECIALIST, MENTAL HEALTH ASSISTANT at 13:25 hours, 20 June, ??regarding the critical echocardiography results was completed and acknowledged. Procedure Note Jefferson Hurtado M.D. - 06/20/2024 For the complete report, see the Order-Level Documents. Hemodynamics Heart Rate: 61 BPM Blood Pressure: 104 / 81 mmHg ECG: Sinus rhythm Final Impressions 1. Normal left ventricular chamber size. 2. Calculated 2-D monoplane volumetric left ventricular ejection seszychu01%. 3. Regional wall motion abnormalities were present (see wall motiongraphics) , most notable for aneurysmal and akinetic LV apex.Differential diagnosis for regional wall motion abnormality distributionis LAD stenosis versus stress cardiomyopathy. Perfusion of the LV apexseems reduced, increasing the likelihood of LAD occlusive disease. 4. Apical left ventricular thrombus (possible). There is no overt bulkythrombus projecting from the apical endocardium. However, from the apicallong axis views (clip 108, frame #124; clip 109, frame #132), there arechanges suspicious for laminated thrombus (2 mm thick) at the apical cap.There is also sluggish flow at the LV apex on the contrast images,indicating a high risk milieu for thrombus formation. 5. Sigmoid ventricular septum with basal septal prominence: 15 mm 6. Dynamic left ventricular outflow obstruction at rest and with Valsalvaassociated with systolic anterior motion of mitral leaflets. 7. Left ventricular outflow tract maximal instantaneous Doppler gradientrest 25 mm Hg; Valsalva 34 mm Hg. 8. Normal left ventricular filling pressure. 9. Moderate mitral valve regurgitation. 10. Mild-moderate tricuspid valve regurgitation. 11. Estimated right ventricular systolic pressure 21 mmHg (right atrialpressure of 5 mmHg). 12. Normal right ventricular chamber size by visual estimate. 13. Normal right ventricular systolic function. 14. Normal inferior vena cava size with normal inspiratory collapse(>50%). 15. Emergency communication to Gracy Wynn APRN, CNP at 13:25 hours,20 June, regarding the critical echocardiography results was completedand acknowledged. Findings Echo performed at the patient's bedside. Intravenous Definity ultrasoundenhancement agent(s) administered to enhance endocardial borderdefinition. LEFT VENTRICLE:Normal left ventricular chamber size. Increased leftventricular outflow tract flow velocities. Sigmoid ventricular septum withbasal septal prominence: 15 mm Left ventricular outflow tract maximalinstantaneous Doppler gradient rest 25 mm Hg; Valsalva 34 mm Hg.Calculated 2-D linear left ventricular ejection fraction 41%. Calculated2-D monoplane volumetric left ventricular ejection fraction 37%. Regionalwall motion abnormalities were present (see wall motion graphics). RIGHT VENTRICLE:Normal right ventricular chamber size by visual estimate.Normal right ventricular systolic function. Estimated right ventricularsystolic pressure 21 mmHg (right atrial pressure of 5 mmHg). ATRIA:Normal left atrial size. Left atrial volume index 24 ml/m2. Normalright atrial size. CARDIAC VALVES:Trileaflet aortic valve. Normal aortic valve. No aorticvalve regurgitation. Thickened mitral valve. Moderate mitral valveregurgitation. Normal pulmonary valve. Normal pulmonary valve systolicvelocities. Mild pulmonary valve regurgitation. Normal tricuspid valve.Mild-moderate tricuspid valve regurgitation. OTHER ECHO FINDINGS:Normal inferior vena cava size with normal inspiratorycollapse (>50%). Normal mid ascending aorta diameter of 34 mm. Noabdominal aortic aneurysm. Normal abdominal aorta Doppler flow pattern. Noatrial level shunt by color flow imaging. No pericardial effusion.Attempts were made to optimize the echocardiographic images and two ormore left ventricular segments were not visualized adequately to evaluatecardiac structure. The patient's current allergies and medications havebeen screened. Imaging enhancement agent administered per EchocardiographyContrast Administration Protocol Reference Document [id number] Rev02/05/2022. Patient met an inclusion criterion and did not havecontraindications in screening sections. For the complete report, see the Order-Level Documents. Henrietta Conroy P.A.-C. CV ECHO PROCEDURES * Magnesium (06/20/2024 7:43 AM CDT) Magnesium, S 2.1 1.7 - 2.3 mg/dL 06/20/2024 9:58 AM CDT DTL Blood (Blood, Venous) 06/20/2024 7:43 AM CDT 06/20/2024 8:33 AM CDT Henrietta Conroy P.A.-C. LAB BLOOD ADD-ON [address] [id number] DTL [facility] [address] [place] [address] * (ABNORMAL) Troponin T, 5th Generation (06/20/2024 12:51 AM CDT) Troponin T, 5th gen 682(H) <=10 ng/L 06/20/2024 1:14 AM CDT [facility] Comment:Consider acute myoca rdial injury Blood (Blood, Venous) 06/20/2024 12:51 AM CDT 06/20/2024 12:58 AM CDT Rich Duff P.A.-C., M.S. LAB BLOOD ADD-ON [facility] [address] [place], [place] [id number] [place] [address] [address] [place] [address] * (ABNORMAL) Lipid Panel (06/19/2024 11:17 PM CDT) Pathologist [facility] Triglycerides 141 mg/dL 06/20/2024 12:00 AM CDT DTL Comment: ----REFERENCE VALUE---- Normal: <150 mg/dL Borderline High: 150-199 mg/dL High: 200-499 mg/dL Very High: > or =500 mg/dL Cholesterol, Total 244(H) mg/dL 2023 12:00 AM CDT DTL Comment: ----REFERENCE VALUE---- Desirable: < 200 mg/dL Borderline High: 200 - 239 mg/dL High: > or = 240 mg/dL Cholesterol, LDL, Calculated 162(H) mg/dL 06/20/2024 12:00 AM CDT DTL Comment: ----REFERENCE VALUE---- Desirable: <100 mg/dL Above Desirable: 100-129 mg/dL Borderline High: 130-159 mg/dL High: 160-189 mg/dL Very High: >=190 mg/dL ----ADDITIONAL INFORMATION---- LDL cholesterol calculated using the Suarez/NIH equation. Cholesterol, HDL, S 57 >=50 mg/dL 06/20/2024 12:00 AM CDT DTL Cholesterol, Non-HDL, Calculated 187(H) mg/dL 06/20/2024 12:00 AM CDT DTL Comment: ----REFERENCE VALUE---- Desirable: <130 mg/dL Above Desirable: 130-159 mg/dL Borderline High: 160-189 mg/dL High: 190-219 mg/dL Very High: > or =220 mg/dL Fasting (8 HR or more) No 06/19/2024 11:17 PM CDT DTL Blood (Blood, Venous) 06/19/2024 11:17 PM CDT 06/19/2024 11:45 PM CDT Rich Duff P.A.-C., M.S. LAB BLOOD ADD-ON Performing Organization Address City/[facility]/ZIP Co de Phone Number [facility] [address] [facility] [address] [place] [address] * (ABNORMAL) APTT (Activated Partial Thromboplastin Time) (06/19/2024 11:17 PM CDT) Activated Partial Thrombopl Time, P 75(H) 25 - 37 sec 06/19/2024 11:46 PM CDT [facility] Blood (Blood, Venous) 06/19/2024 11:17 PM CDT 06/19/2024 11:24 PM CDT Rich Duff P.A.-C., M.S. LAB BLOOD ADD-ON Performing Organization Address City/[facility]/ZIP Co de Phone Number [facility] [address] [place] [address], [place] [address] * Hemoglobin A1c (06/19/2024 11:17 PM CDT) Hemoglobin A1c, B 5.6 4.0 - 5.6 % 06/20/2024 1:10 AM CDT DT Blood (Blood, Venous) 06/19/2024 11:17 PM CDT 06/19/2024 11:31 PM CDT Rich Duff P.A.-C., M.S. LAB BLOOD ADD-ON Performing Organization Address [facility] Co de Phone Number [facility] [address] [place] [address], [facility] DTL [facility] [address] [place] [address] * ECG 12 Lead (06/19/2024 10:51 PM CDT) Only the most recent of3 resultswithin the time period is included. Ventricular Rate ECG/Min [address] Interval 138 ms MUSE QRSD Interval 84 ms MUSE QT Interval 378 ms MUSE QTC Interval 430 ms MUSE P Frederick 59 degrees MUSE R Frederick -20 degrees MUSE T Wave Frederick 38 degrees MUSE 06/19/2024 10:5 1 PM CDT 06/19/2024 11:03 PM CDT Impressions MUSE - 06/19/2024 11:03 PM CDT Normal sinus rhythm with sinus arrhythmia Slight ST elevation in Anteroseptal leads When compared with ECG of 19-Jun-2024 19:36, Premature ventricular complexes are no longer present Reviewed by JOSSELYN Sy Narrative Procedure Note Xu Umanzor M.D., Ph.D. - 06/19/2024 IMPRESSION: Normal sinus rhythm with sinus arrhythmia Slight ST elevation in Anteroseptal leads When compared with ECG of 19-Jun-2024 19:36, Premature ventricular complexes are no longer present Reviewed by JOSSELYN Sy Henrietta Conroy P.A.-C. ECG ORDERABLES Performing Organization Address [facility] Co de Phone Number MUSE NA * (ABNORMAL) Troponin T, 2 Hour with 6 Hour Reflex, 5th Gen (06/19/2024 9:11 PM CDT) Troponin T, 2 hr, 5th gen 688(H) <=10 ng/L 06/19/2024 9:32 PM CDT [facility] Comment:Consider acute myoca rdial injury 2H Delta % 32(A) % 06/19/2024 9:32 PM CDT [facility] Comment:6 hour collection pe nding. 2H Delta Interp Changing(A ) 06/19/2024 9:32 PM CDT [facility] Comment:Evaluate for acute m yocardial injury Blood 06/19/2024 9:11 PM CDT 06/19/2024 9:14 PM CDT Sayra Robledo P.A.-C., P.A., M.S. L AB BLOOD TROPONIN Performing Organization Address City/State/[facility] Co de Phone Number [facility] [address] [place] [address], [facility]- [facility] & [address] [address] * Critical Care (06/19/2024 8:05 PM CDT) Narrative Sayra Robledo P.A.-C., P.A., M.S. - 06/19/2024 8:05 PM CDT Sayra Robledo P.A.-C., P.A., M.S. ? 06/19/2024 ??8:05 PM Critical Care Performed by: Sayra Robledo P.A.-C., P.A., M.S. Authorized by: Sayra Robledo P.A.-C., P.A., M.S. ?? Critical care provider statement: Critical care total time (minutes): 30 Critical care time was exclusive of: separately billable procedures and treating other patients and teaching time CPR was performed on this patient: no ?? Critical care was necessary to treat or prevent imminent or life-threatening deterioration of the following conditions: cardiac arrhythmia (NSTEMI) Critical care was time spent personally by me on the following activities: development of treatment plan with patient or surrogate, evaluation of patient's response to treatment, examination of patient, interpretation of cardiac output measurements, obtaining history from patient or surrogate, ordering and review of radiographic studies, ordering and review of laboratory studies, ordering and performing treatments and interventions, pulse oximetry, re-evaluation of patient's condition, review of old charts, discussing treatment issues with family or surrogate, documenting in the patient chart and discussions with consultants I assumed direction of critical care for this patient from another provider in my specialty: no ?? Sayra Robledo P.A.-C., P.A., M.S. P ROCEDURE/MINOR SURGICAL ORDERABLES * DX Chest Portable 1 View (06/19/2024 7:22 PM CDT) Anatomical Region Laterality Modality Chest, Thoracic RST LOS, Tho racic ARZ LOS, Thoracic FLA LOS N/A Digital Radiography Impressions 06/19/2024 7:25 PM CDT No acute findings. No infiltrates or effusions. Normal cardiac size and pulmonary vascularity. Old fractures posterior left fourth through seventh ribs. Narrative 06/19/2024 7:25 PM CDT EXAM: DX CHEST PORTABLE 1 VIEW Procedure Note Woodrow Guzmán M.D. - 06/19/2024 EXAM: DX CHEST PORTABLE 1 VIEW IMPRESSION: No acute findings. No infiltrates or effusions. Normal cardiac size andpulmonary vascularity. Old fractures posterior left fourth through seventhribs. Sayra Robledo P.A.-C., P.A., M.S. I MG DIAGNOSTIC IMAGING PROCEDURES * Prothrombin Time (PT) (06/19/2024 7:05 PM CDT) Prothrombin Time, P 11.5 9.4 - 12.5 sec 06/19/2024 7:16 PM CDT [facility] INR 1.0 0.9 - 1.1 06/19/2024 7:16 PM CDT [facility] Comment: ----ADDITIONAL INFORMATION---- Standard intensity warfarin therapeutic range: 2.0 to 3.0 ?? High intensity warfarin therapeutic range: 2.5 to 3.5 Blood (Blood, Venous) 06/19/2024 7:05 PM CDT 06/19/2024 7:07 PM CDT Sayra Robledo P.A.-C., P.A., M.S. L AB BLOOD ADD-ON Performing Organization Address [facility]/ZIP Co de Phone Number [facility] [place] [address] [place] [address], [facility] [place] [facility]- [facility] & [place] [address] [place] [address] * D-Dimer (06/19/2024 7:05 PM CDT) Pathologist [facility] D-Dimer, P 475 <=500 ng/mL FEU 06/19/2024 7:17 PM CDT [facility] Comment: ----ADDITIONAL INFORMATION---- D-dimer values less than or equal to 500 ng/mL fibrinogen equivalent units (FEU) may be used in conjunction with clinical pre-test probability to exclude deep vein thrombosis (DVT) and/or pulmonary embolism (PE). Blood (Blood, Venous) 06/19/2024 7:05 PM CDT 06/19/2024 7:07 PM CDT Sayra Robledo P.A.-C., P.A., M.S. L AB BLOOD ADD-ON Performing Organization Address [facility] Co de Phone Number [facility] [address] [facility] [address], [facility]- [facility] & [place] [address] [place] [address] * (ABNORMAL) CBC with Differential, Blood (06/19/2024 7:05 PM CDT) Pathologist [facility] Hemoglobin 13.8 11.6 - 15.0 g/dL 06/19/2024 7:10 PM CDT [facility] Hematocrit 40.6 35.5 - 44.9 % 06/19/2024 7:10 PM CDT [facility] Erythrocytes 4.77 3.92 - 5.13 x10(12)/L 06/19/2024 7:10 PM CDT [facility] MCV 85.1 78.2 - 97.9 fL 06/19/2024 7:10 PM CDT [facility] RBC Distrib Width 12.1(L) 12.2 - 16.1 % 06/19/2024 7:10 PM CDT [facility] Platelet Count 316 157 - 371 x10(9)/L 06/19/2024 7:10 PM CDT [facility] Leukocytes 10.3(H) 3.4 - 9.6 x10(9)/L 06/19/2024 7:10 PM CDT [facility] Neutrophils 6.48(H) 1.56 - 6.45 x10(9)/L 06/19/2024 7:10 PM CDT [facility] Lymphocytes 2.78 0.95 - 3.07 x10(9)/L 06/19/2024 7:10 PM CDT [facility] Monocytes 0.68 0.26 - 0.81 x10(9)/L 06/19/2024 7:10 PM CDT [facility] Eosinophils 0.27 0.03 - 0.48 x10(9)/L 06/19/2024 7:10 PM CDT [facility] Basophils 0.04 0.01 - 0.08 x10(9)/L 06/19/2024 7:10 PM CDT [facility] Blood (Blood, Venous) 06/19/2024 7:05 PM CDT 06/19/2024 7:07 PM CDT Sayra Robledo P.A.-C., P.A., M.S. L AB BLOOD ADD-ON [facility] [address] [place] [address], [facility] [address] [place] [address] * (ABNORMAL) Comprehensive Metabolic Panel (06/19/2024 7:05 PM CDT) Potassium, P 3.8 3.6 - 5.2 mmol/L 06/19/2024 7:25 PM CDT [facility] Sodium, P 138 135 - 145 mmol/L 06/19/2024 7:25 PM CDT [facility] Chloride, P 102 98 - 107 mmol/L 06/19/2024 7:25 PM CDT [facility] Bicarbonate, P 24 22 - 29 mmol/L 06/19/2024 7:25 PM CDT [facility] Anion Gap, P 12 7 - 15 06/19/2024 7:25 PM CDT [facility] BUN (Blood Urea Nitrogen), P 15 6 - 21 mg/dL 06/19/2024 7:25 PM CDT [facility] Creatinine 0.99 0.59 - 1.04 mg/dL 06/19/2024 7:25 PM CDT [facility] Estimated GFR (eGFR) 61 >=60 mL/min/BS A 06/19/2024 7:25 PM CDT [facility] Comment: Estimated GFR calculated using the 2020 CKD_EPI creatinine equation. Calcium, Total, P 9.0 8.8 - 10.2 mg/dL 06/19/2024 7:25 PM CDT [facility] Glucose, P 145(H) 70 - 140 mg/dL 06/19/2024 7:25 PM CDT [facility] Protein, Total, P 6.9 6.3 - 7.9 g/dL 06/19/2024 7:25 PM CDT [facility] Albumin, P 4.1 3.5 - 5.0 g/dL 06/19/2024 7:25 PM CDT [facility] Aspartate Aminotransferase (AST), P 20 8 - 43 U/L 06/19/2024 7:25 PM CDT [facility] Alkaline Phosphatase, P 72 35 - 104 U/L 06/19/2024 7:25 PM CDT [facility] Alanine Aminotransferase (ALT), P 15 7 - 45 U/L 06/19/2024 7:25 PM CDT [facility] Bilirubin, Total, P 0.3 0.0 - 1.2 mg/dL 06/19/2024 7:25 PM CDT [facility] Blood (Blood, Venous) 06/19/2024 7:05 PM CDT 06/19/2024 7:07 PM CDT Sayra Robledo P.A.-C., P.A., M.S. L AB BLOOD ADD-ON [facility] [place] [address] [place] [address], [facility] & [place] [address] [place] [address] * (ABNORMAL) Troponin T, Baseline with 2 Hour/6 Hour Reflex Biomarker Panel (06/19/2024 7:04 PM CDT) Troponin T, Baseline, 5th gen 520(H) <=10 ng/L 06/19/2024 7:25 PM CDT [facility] Comment:Consider acute myoca rdial injury Blood (Blood, Venous) 06/19/2024 7:04 PM CDT 06/19/2024 7:07 PM CDT Sayra Robledo P.A.-C., P.A., M.S. L AB BLOOD TROPONIN Performing Organization Address City/[facility]/ZIP Co de Phone Number [facility] [address] [place] [address], [place] [facility] & [place] [address] [place] [address] * NT-Pro B-Type Natriuretic Peptide (BNP) (06/19/2024 7:04 PM CDT) NT-Pro BNP 140 <=540 pg/mL 06/19/2024 7:34 PM CDT [facility] Comment: NT-proBNP values less than 300 pg/mL have a 99% negative predictive value for excluding acute congestive heart failure. A cutoff of 1200 pg/mL for patients with an eGFR<60 yields a diagnostic sensitivity and specificity of 89% and 72% for acute congestive heart failure. A diagnostic NT-proBNP cutoff of 900 pg/mL has been suggested in adults 50-75 years of age in the absence of renal failure. Blood (Blood, Venous) 06/19/2024 7:04 PM CDT 06/19/2024 7:07 PM CDT Sayra Dasilva Meena Pineda., P.A., M.S. L AB BLOOD ADD-ON [facility] [address] [place] [address], [facility]- [facility] [place] [facility] [place] [address] [place] [address] * BI Breast Screening Bilateral with Tomosynthesis (10/30/2022 11:10 AM CAN INSPECTOR) Anatomical Region Laterality Modality Breast, Breast Imaging RST L OS, Breast Imaging ARZ LOS, Breast Imaging FLA LOS Bilateral Mammography 10/30/2022 2:00 PM CAN INSPECTOR Impressions 10/30/2022 2:01 PM CAN INSPECTOR Negative. RECOMMENDATION: ??Annual Screening Mammogram ASSESSMENT: ??BI-RADS: 1: Negative. Narrative 10/30/2022 2:01 PM CAN INSPECTOR EXAM: ??BI BREAST SCREENING BILATERAL WITH TOMOSYNTHESIS Current study was evaluated with a Computer Aided Detection (CAD) system. INDICATION: ??Screening mammogram. COMPARISON: ??Prior exam(s) were available and reviewed for comparison. DENSITY: ??a. The breast(s) are almost entirely fatty. FINDINGS: ??No mammographic findings of malignancy. Procedure Note Norman Small M.D. - 10/30/2022 EXAM: BI BREAST SCREENING BILATERAL WITH TOMOSYNTHESIS Current study was evaluated with a Computer Aided Detection (CAD) system. INDICATION: Screening mammogram. COMPARISON: Prior exam(s) were available and reviewed for comparison. DENSITY: a. The breast(s) are almost entirely fatty. FINDINGS: No mammographic findings of malignancy. IMPRESSION: Negative. RECOMMENDATION: Annual Screening Mammogram ASSESSMENT: BI-RADS: 1: Negative. Asif Perry M.D. [facility] * Pathology PUMP SERVICER SUPERVISOR Cytology (02/12/2016 12:00 AM CDT) 02/12/2016 Narrative [facility] - 02/19/2016 10:05 AM CDT [facility] [address] [place], [place] ??[id number] Patient Name: HAYLEE CEBALLOS Collected: 02/12/2016 Address: [facility]/State/Zip: [address] [place] [address] ??[phone] Received: Reported: 02/13/2016 02/19/2016 Soc. Sec. #: ?/Age/Sex 1955 (Age: 60) ??F Physician(s): HI LOZA MD Copy To: ? [facility] ??[phone] [facility], ??[place] ??[address] CYTOPATHOLOGY PUMP SERVICER SUPERVISOR REPORT FINAL CYTOLOGIC DIAGNOSIS Pap Smear - ThinPrep with HPV: NEGATIVE FOR INTRAEPITHELIAL LESION OR MALIGNANCY PRESENCE OR ABSENCE OF ENDOCERVICAL COMPONENT CANNOT BE DETERMINED DUE TO ATROPHY. SATISFACTORY SPECIMEN FOR EVALUATION. Electronically Signed Out By amb/02/19/[address](ASCP) The Pap test is a screening procedure and, as such, is subject to both false positive and false negative results as evidenced by published data. ??It is not a diagnostic test and results should be interpreted in the context of the patient's history and other clinical findings. ??Obtaining periodic Pap tests may help to minimize the consequences of any false negatives that may occur. Procedures/Addenda: HUMAN PAPILLOMA VIRUS ADDENDUM ? Date Ordered: ? 02/13/2016 ? Status: ??Signed Out Date Complete: ? 02/19/2016 ? By: ??RC Glenn CT(ASCP) Date Reported: ? 02/19/2016 INTERPRETATION: Test: Aptima High Risk HPV Result: NEGATIVE FOR HIGH RISK HPV Specimen Description: ThinPrep? ? ? Pap Test PreservCyt Solution HPV by Underwater Roboticist-Mediated Amplification (TMA) for E6/E7 viral messenger RNA (mRNA) is an in-vitro diagnostic test for the detection of 14 high-risk Human Papillomavirus (HPV) types (16, 18, 31, 33, 35, 39, 45, 51, 52, 56, 58, 59, 66, and 68) in cervical specimen. Intended for co-testing or reflex testing of ASC-US Pap smears. Interpretation for patients with ASC-US cytology: Low likelihood of underlying high-grade CIN2-3 or cancer; results are not intended to prevent women from proceeding to colposcopy. Interpretation for patients with NILM cytology who are over 30 years old: Very low likelihood of underlying high-grade SEBASTIAN or cancer; results do not preclude future HPV infection or cytologic abnormalities with underlying CIN2-3 or cancer. SPECIMEN(S) RECEIVED: Pap Smear - ThinPrep with HPV CLINICAL HISTORY: Date of Last PAP: 09/20/2012 Date of Last Menstrual Period: 10 YEARS AGO Menstrual History: Postmenopausal Hormonal History: No hormonal therapy Other Clinical Conditions: HPV TYPING REQUESTED Krissy Loza M.D. LAB PAP COPATH ORDER [facility] from Last 3 Months or Most Recently Relevant to Health Maintenance Advance Directives For more information, please contact: [phone] * Full Code (Latest Code Status on File) Date Activated Date Inactivated Comments 06/20/2024 3:11 PM 06/21/2024 7:59 PM Question Answer Comments Full Code: Discussed * DNR/DNI Date Activated Date Inactivated Comments 06/19/2024 11:22 PM 06/20/2024 3:11 PM Question Answer Comments DNR/DNI (Do Not Resuscitate/Do Not Intubate): Brittanie stewart-Patient Care Teams [employer] Relationship Specialty Start Date End Date Elsewhere, Pcp PCP - General Internal Medicine 03/05/23
--- OUTSIDE RECORDS SUMMARY | 2024-07-05 12:53 | XMS_ITS | Encounter Summary ---
Author Organization [facility] Address [address] [place] [id number] Care Team Providers Care Director Global Development Name Role Phone Elsewhere, Pcp Primary Care Provider Unavailabl e Reason for Referral * Outpatient (Routine) - Authorized Specialty Diagnoses / Procedures Referred By Kellen johnson Referred To Contact Diagnoses Non-ST Elevation Myocardial Infarction (HCC) Procedures Cardiac Rehab Program Fredrick Gutierrez M.D. [address] [place] [phone] [facility] Region Referral ID Status Reason Start Date Expiration Date V isits Requested Visits Authorized [id number] Authorized 06/21/2024 06/21/2025 45 45 Reason for Visit * Auth/Cert (Routine) Specialty Diagnoses / Procedures Referred By Kellen johnson Referred To Contact Diagnoses Non-ST Elevation Myocardial Infarction (HCC) Chest pain Procedures DIR Referral ID Status Reason Start Date Expiration Date Visits Re quested Visits Authorized [id number] 1 1 Encounter Details Date Type Department Care Team (Latest Contact Info) Description 06/19/2024 10:36 PM CDT - 06/21/2024 5:59 PM CDT Hospital Encounter [facility], [facility], Fifth Floor [address] [place] [phone] Kb Underwood M.D., Ph.D. [address] [place] [phone] Fredrick Gutierrez M.D. 200 [place] [phone] Non-ST Elevation Myocardial Infarction (HCC) (Primary Dx) Discharge Disposition: Home or Self Care Social History Tobacco Use Types Packs/Day Years Used Date Smoking Tobacco: Former Cigarettes 0.5 21 Smokeless Tobacco: Never Tobacco Cessation:Counseling Given: Not Answered Comments:quit 25+ years ago Alcohol Use Standard Drinks/Week Comments Yes 2 (1 standard drink = 0.6 oz pur e alcohol) [facility] Utilities Answer Date Recorded In the past 12 months has e electric, gas, oil, or water company threatened to shut off services in your [...] than three times a week 07/10/2019 Attends Congregational Services Patient declined 06/25 Active Member of Clubs or Organizations No 07/10/2019 Attends Club or Organization Meetings Not on gorge e 07/10/2019 Marital Status 07/10/2019 AUDIT-C Answer Date Recorded Frequency of Alcohol Consumption 2-4 times a mon 07/10/2019 Average Number of Drinks 1 or 2 019 Frequency of Binge Drinking Never 06/25 Overall Financial Resource Strain (CARDIA) Answe r Date Recorded Difficulty of Paying Living Expenses Not hard at all 07/10/2019 PHQ-2 Answer Date Recorded PHQ-2 Score 0 01/10/2020 [facility] - Occupational Stress Questionnaire Answer Date [...] your living situation today? [facility] 06/19/2024 Education Answer Date Recorded What is the highest level of school you have completed or the highest degree you have received? 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 - 06/21/2024 4:43 PM CDT CARDIOLOGY HOSPITAL DISCHARGE SUMMARY DATE OF ADMISSION: 06/19/2024 DATE OF DISCHARGE: 06/21/2024 Discharge Provider: Fredrick Gutierrez M.D. Discharge Provider Team: [facility] 3 PRINCIPAL DIAGNOSIS Non-ST Elevation Myocardial Infarction (HCC) DISMISSAL DIAGNOSES Non-ST elevation myocardial infarction, with normal coronaries (angiogram 06/20/24) Moderate coronary artery myocardial bridge (coronary angiogram 06/20/24) Aneurysmal and akinetic LV apex, query stress cardiomyopathy Acute left ventricular systolic dysfunction without HF symptoms, LVEF 37% (TTE 06/20/24) Possible apical left ventricular thrombus (TTE 06/20/24) Moderate mitral valve regurgitation Mild to moderate tricuspid valve regurgitation Hyperlipidemia, with probable statin intolerance 5 pack-year history of smoking, quit 30 years ago GERD Restless leg syndrome Insomnia DISCHARGE DISPOSITION: Home or Self Care [1] RECOMMENDATIONS FOR FOLLOW-UP APPOINTMENTS For Primary Care: Follow up with PCP in 7-10 days with CBC, BMP, and magnesium prior to visit Assess right radial access site for healing Monitor for tolerance of statin Monitor heart rate and blood pressure. Uptitrate metoprolol and losartan if tolerated Statin therapy initiated: - A fasting lipid profile on 06/19/2024 showed: Total Cholesterol 244 mg/dL, HDL 57 mg/dL, LDL 162 mg/dL, Triglycerides 141 mg/dL. - Please recheck lipids and ALT/AST in 8-12 weeks. - Goal of statin therapy is an LDL less than 70 mg/dl or a 50% reduction in LDL. - If persistently above goal, please maximize statin therapy, add Zetia 10 mg daily or add PCSK9 inhibitor. For Cardiology Provider: Monitor heart rate and blood pressure. Uptitrate metoprolol and losartan if tolerated Repeat transthoracic echocardiogram in 2-3 months, follow-up on noted LV thrombus, re-evaluate LVEF If LVEF remains low, consider adding SGLT2 inhibitor MEDICATIONS CHANGED DURING HOSPITAL STAY: Medications Stopped: None Medications Changed: None Medications Started: Aspirin, metoprolol succinate, losartan, and Crestor PROCEDURES DURING STAY: 06/20/2024: coronary angiography RESTRICTIONS: Activity as tolerated FOLLOW-UP APPOINTMENTS Scheduled Appointments 07/18/2024 12:20 PM [facility] 02 Cardiovascular Disease 07/20/2024 3:00 PM Malou Mckenzie, ANGELA, C.N.P. Cardiovascular Disease For appointment details refer to your Patient Appointment Guide. HOSPITAL COURSE Admission Weight: 64.6 kg Dismissal Weight: 64 kg BMI: Body mass index is 23.48 kg/m??. Mrs. Ceballos is a 68 y.o. female who presented to the [facility] ED for evaluation of exertional chest discomfort with related palpitations and lightheadedness. Medical comorbidities including but not limited to: Dyslipidemia, mid LAD myocardial bridging (angiogram 11/23/2014), GERD, depression, restless legs syndrome, probable mild rheumatoid arthritis, and osteopenia. She was evaluated for chest pain in 2014. Coronary angiogram at that time noted normal coronary arteries, showed mid LAD myocardial bridging. Bridging was not felt to be significant and was not contributing to her symptoms however may have explained her prior abnormal stress test results. In the ED patient was mildly tachycardiac with rates in the low 100's but otherwise vitally stable and chest pain free. Initial EKG demonstrated sinus tachycardia with possible ST elevations in leadsII, V2 and V3. Lab workup was significant for mild leukocytosis of 10.3, normal electrolytes, and elevated and rising troponins (520,688) with positive delta of 32. Chest x-ray demonstrated no acute findings. EKG was repeated again and continued to demonstrate similar findings. Dr. Underwood, CICU aws consultant, was curbsided and felt EKG did not meet STEMI criteria but given rising troponins patient was aspirin loaded, started on IV heparin, and transferred to [facility] Cardiology PCU for management on NSTEMI. On arrival to PCU, patient was vitally stable and chest pain free. Patient was Plavix loaded and underwent coronary angiography which revealed normal coronary arteries and moderate coronary artery myocardial bridge. TTE on 06/20/24 demonstrated normal LV with calculated EF 37%. 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 Perfusion of LV apex reduced. Possible apical left ventricular thrombus. Moderate mitral valve regurgitation. Ebgf-xi-ktwgbjvy tricuspid valve regurgitation. Estimated RVSP 21 mm Hg. Normal RV systolic function. Post coronary angiogram, patient was continued on heparin infusion. This was transitioned to Eliquis. Metoprolol succinate and low-dose losartan initiated for guideline medical therapy. Patient was agreeable to retrial of statin and was initiated on Crestor every other day. We will arrange for follow-up in Cardiology for ongoing monitoring, and titration of medication. She will also need repeat transthoracic echocardiogram in about 2-3 months to reassess noted LV thrombus and LV function. Participation in cardiac rehabilitation recommended. Patient was discharged home vitally stable on 06/21/2024. TEST RESULTS PENDING AT DISCHARGE: Pending Labs None CONDITION ON DISCHARGE: Stable. 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 documented in this encounter Discharge Instructions * Discharge Instructions* Eva Alberts - 06/20/2024 6:45 AM CDT You were discharged from the [facility] 3 Service. Please identify this service name if you call withquestions after hospitalization. * Attachments The following attachments cannot be sent through Care Everywhere. * Aspirin (By mouth) (Slovak) * Losartan (By mouth) (Slovak) * Metoprolol (By mouth) (Slovak) * Rosuvastatin (By mouth) (Slovak) documented in this encounter Medications at Time of Discharge Medication Sig Dispensed Refills Start Date End Date apixaban (Eliquis) 5 mg tablet Take 1 tablet (5 mg total) by mouth 2 (two) times a day. 120 tablet 2 06/21/2024 aspirin 81 mg chewable tablet Chew 1 tablet (81 mg total) daily with morning meal. 90 tablet 3 06/22/2024 calcium citrate-vitamin D3 (CITRACAL+D) 1,184 mg (250 mg calcium)-200 unit per tablet Take 1 tablet by mouth daily. 11/22/2014 losartan (Cozaar) 25 mg tablet Take 0.5 tablets (12.5 mg total) by mouth daily. 45 tablet 3 06/22/2024 metoprolol succinate (Toprol XL) 25 mg 24 hr tablet Take 1 tablet (25 mg total) by mouth daily. Do not crush or chew. 90 tablet 3 06/22/2024 omeprazole (PriLOSEC) [address] capsule Take 1 capsule (40 mg total) by mouth every morning before breakfast. Please come to the clinic for follow-up 90 capsule 03/04/2023 pramipexole (MIRAPEX) 0.5 mg tablet Take 1 tablet (0.5 mg total) by mouth 2 (two) times a day. Please come to the clinic for follow-up 180 tablet 03/04/2023 rosuvastatin (Crestor) 5 mg tablet Take 1 tablet (5 mg total) by mouth every other day. 45 tablet 3 06/21/2024 traZODone (DesyreL) 50 mg tablet Take 0.5 tablets (25 mg total) by mouth as needed for sleep. 45 tablet 06/21/2024 mwcomgxq-wbyxnezlq-ev xamethasone (Maxitrol) 3.5mg/mL-10,000 unit/mL-0.1 % ophthalmic suspension Administer 1 drop into the left eye 4 (four) times a day for 10 days. 5 mL 06/19/2024 06/29/2024 documented as of this encounter Progress Notes * Clarice Villanueva, Pharm.D., R.Ph. - 06/21/2024 1:33 PM CDT Pharmacist Progress Note Reason for admission: NSTEMI PMH: HLD, GERD, Migraines, Polyarthralgia, RLS,Depression, Past Medical History: Diagnosis Date Depressive Disorder Take Fluoxetine 10 mg daily Dry Eye Syndrome Bilateral Gastroesophageal Reflux Disease NOS Taking Prilosec 40 mg daily Headache Unspecified Hyperlipidemia taking Lovastatin 10 mg daily Migraine Headache ocular migraine, take Bmgfaz-gfsqzhys-wsgy Other Injury Of Unspecified Body Region Fx ribs OBJECTIVE Neuro: Pain APAP 1g Q6H prn, Sleep: Trazodone 25 mg prn RLS: Pramipexole 0.5 mg BID CV: CAD? Aspirin 81 mg Neph: Estimated Creatinine Clearance: 52.4 mL/min (by C-G formula based on SCr of 1.01 mg/dL). BL SCr 0.8 - 0.9 PPX: Apixaban Medication Reconciliation: Held: None Changed: None New: aspirin,metoprolol, pantoprazole,nitroglycerin, losartan, apixban ASSESSMENT / PLAN S/P coronary angio with normal coronary artery findings. 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 Plan to initiate rosuvastatin 5 mg every other day may consider a PCSK9 inhibitor. Soniya Villanueva Pharm.D., R.Ph. * Gracy Wynn APRN, C.N.P. - 06/21/2024 7:50 AM CDT 1 CARDIOLOGY INPATIENT PROGRESS NOTE SUBJECTIVE I met and examined Ms. Ceballos. She had an uneventful night and has no complains this morning. States that she had a great night. No recurrence of neck pain since admission, no chest pain, shortness of breath or lightheadedness. TELEMETRY Sinus rhythm. VITAL SIGNS Blood pressure 104/69, heart rate 70, respirations 17, temperature 36.7??, O2 sats 95% on room air. INTAKE/OUTPUT Past 24 hours: Intake/Output Summary (Last 24 hours) at 06/21/2024 1002 Last data filed at 06/21/2024 0800 Gross per 24 hour Intake 657 ml Output 200 ml Net 457 ml PHYSICAL EXAMINATION General: Awake, alert and in no apparent distress. Lungs: Clear to auscultation bilaterally without wheezes or rhonchi. Heart: Normal S1-S2. Regular rate and rhythm. No murmurs appreciated. JVP not elevated. Vessels: Pedal pulses 2+ bilaterally. Abdomen: Soft and nontender. Normoactive bowel sounds. Extremities: No edema. Musculoskeletal: Normal gait. Psychiatric: Appropriate mood and affect. LABORATORY Recent Results (from the past 24 hour(s)) Heparin Anti-Xa Assay Collection Time: 06/21/24 7:56 AM Result Value Heparin Anti-Xa, P 0.46 CBC without Differential Collection Time: 06/21/24 7:57 AM Result Value Hemoglobin 13.9 Hematocrit 43.0 Erythrocytes 4.95 MCV 86.9 RBC Distrib Width 12.4 Platelet Count 337 Leukocytes 6.9 Basic Metabolic Panel Collection Time: 06/21/24 7:57 AM Result Value Potassium, S 4.8 Sodium, S 141 Chloride, S 103 Bicarbonate, S 27 Anion Gap 11 BUN (Blood Urea Nitrogen), S 15 Creatinine 1.01 Estimated GFR (eGFR) 60 Calcium, Total, S 9.4 Glucose, S 99 ASSESSMENT / PLAN #1 Non-ST elevation myocardial infarction, with normal coronaries (angiogram 06/20/24) #2 Moderate coronary artery myocardial bridge (coronary angiogram 06/20/24) #3 Aneurysmal and akinetic LV apex, query stress cardiomyopathy #4 Acute left ventricular systolic dysfunction without HF symptoms, LVEF 37% (TTE 06/20/24) #5 Possible apical left ventricular thrombus (TTE 06/20/24) #6 Moderate mitral valve regurgitation #7 Mild to moderate tricuspid valve regurgitation #8 Hyperlipidemia, with probable statin intolerance #9 5 pack-year history of smoking, quit 30 years ago #10 GERD #11 Restless leg syndrome #12 Probable mild rheumatoid arthritis #13 Osteopenia #14 Insomnia Mrs. Ceballos is a 68 y.o. female who presented to [facility] ED for 2 weeks of exertional neck discomfort/fullness and intermittent lightheadedness. In the ED patient was mildly tachycardiac with rates in the low 100's but otherwise vitally stable and chest pain free. Initial EKG demonstrated sinustachycardia with possible ST elevations in leads II, V2 and V3. Lab workup was significant for mildleukocytosis of 10.3, normal electrolytes, and elevated and rising troponins (520,688) with positive delta of 32. Chest x-ray demonstrated no acute findings. EKG was repeated again and continued to demonstrate similar findings. CICU aws consultant was curbsided and felt EKG did not meet STEMI criteria but given rising troponins patient was aspirin loaded, started on IV heparin, [facility]. Patient was admitted to inpatient Cardiology Service. She was continued on IV heparin and Plavix loaded. Initiated on beta-jennifer for guideline medical therapy. Currently not on statin due to probable intolerance. Underwent coronary angiogram which revealed normal coronary arteries and moderate coronary artery myocardial bridge. TTE revealed normal LV with calculated EF 37%. RWMA present and notable for aneurysmal and akineticLV apex. Perfusion of LV apex reduced. Possible apical left ventricular thrombus. Moderate mitral valve regurgitation. Glso-vi-pqodnaye tricuspid valve regurgitation. Estimated RVSP 21 mm Hg. Normal RV systolic function. Post coronary angiogram, patient was continued on heparin infusion. We will discuss long-term anticoagulation today. Review and initiate medications for guideline medical therapy. Also discuss role for statin given probable intolerance in the setting of normal coronary arteries. PLAN: Continue heparin infusion for now. Transition to oral anticoagulation - Initiate Eliquis 5 mg twicedaily. Continue aspirin 81 mg daily, and retry statin therapy: Crestor 5 mg every other day. Transition metoprolol 12.5 mg twice daily to succinate 25 mg daily. She low-dose losartan 12.5 mg daily, monitor blood pressures closely. Consult for cardiac rehabilitation. Refer to cardiology outpatient for ongoing monitoring and medication titration. Ambulate as able. If patient tolerates new medications and remains asymptomatic, could consider discharge later today. ADDENDUM @ 1330: Patient has had an overall great day. She has been up and ambulating without any difficulty or recurrence of symptoms that brought her into the hospital. She has remained normotensive with added medications: Losartan and metoprolol. She is looking forward to being discharged, and feel it is reasonable. She is scheduled to follow up with PCP on 06/27/2024. We will also arrange forcardiology follow-up in about a month. DVT PROPHYLAXIS: Heparin infusion. GI PROPHYLAXIS: Protonix (formulary exchange for omeprazole). DISPOSITION: Home self-care. Gracy Wynn APRN C.N.P. 06/21/24 MARGIN CODE Total time: 60 min, Counseling Time: Greater than 50%. * Clarice Villanueva PharmNy, R.Ph. - 06/20/2024 12:08 PM CDT Pharmacist Progress Note Reason for admission: NSTEMI PMH: HLD, GERD, Migraines, Polyarthralgia, RLS,Depression, Past Medical History: Diagnosis Date Depressive Disorder Take Fluoxetine 10 mg daily Dry Eye Syndrome Bilateral Gastroesophageal Reflux Disease NOS Taking Prilosec 40 mg daily Headache Unspecified Hyperlipidemia taking Lovastatin 10 mg daily Migraine Headache ocular migraine, take Xwxcmh-veqcnsjk-dbyc Other Injury Of Unspecified Body Region Fx ribs OBJECTIVE Neuro: Pain APAP 1g Q6H prn, Sleep: Trazodone 25 mg prn RLS: Pramipexole 0.5 mg BID CV: CAD? Aspirin 81 mg Neph: Estimated Creatinine Clearance: 54.5 mL/min (by C-G formula based on SCr of 0.96 mg/dL). BL SCr 0.8 - 0.9 PPX: Moderate intensity heparin nomogram Medication Reconciliation: Held: None Changed: None New: aspirin,metoprolol, pantoprazole,nitroglycerin ASSESSMENT / PLAN NSTEMI: S/P Asprin 324 mg + clopidogrel 600 mg load. Continues heparin drip. Coronary angio with potential intervention planned for today. Hypercholesterolemia: LDL 162 (06/19/2024) past statin trials with rosuvastatin, simvastatin, and lovastatin. May consider initiating rosuvastatin 5 mg every other day, ezetimibe, or a PSK9 inhibitor. Soniya Villanueva Pharm.D., R.Ph. * Gracy Wynn APRN, C.N.P. - 06/20/2024 8:10 AM CDT 1 CARDIOLOGY INPATIENT PROGRESS NOTE SUBJECTIVE I met and examined Ms. Ceballos. She had an uneventful night and has no complains this morning. No recurrence of neck pain since admission, no chest pain, shortness of breath or lightheadedness. TELEMETRY Sinus rhythm. VITAL SIGNS Blood pressure 104/81, heart rate 75, respirations 16, temperature 36.9??, O2 sats 95% on room air. INTAKE/OUTPUT Past 24 hours: Intake/Output Summary (Last 24 hours) at 06/20/2024 1512 Last data filed at 06/20/2024 0900 Gross per 24 hour Intake 175.67 ml Output 750 ml Net -574.33 ml PHYSICAL EXAMINATION General: Awake, alert and in no apparent distress. Lungs: Clear to auscultation bilaterally without wheezes or rhonchi. Heart: Normal S1-S2. Regular rate and rhythm. No murmurs appreciated. JVP not elevated. Vessels: Pedal pulses 2+ bilaterally. Abdomen: Soft and nontender. Normoactive bowel sounds. Extremities: No edema. Musculoskeletal: Normal gait. Psychiatric: Appropriate mood and affect. LABORATORY Recent Results (from the past 24 hour(s)) NT-Pro B-Type Natriuretic Peptide (BNP) Collection Time: 06/19/24 7:04 PM Result Value NT-Pro BNP 140 Troponin T, Baseline with 2 Hour/6 Hour Reflex Biomarker Panel Collection Time: 06/19/24 7:04 PM Result Value Troponin T, Baseline, 5th gen 520 (H) CBC with Differential, Blood Collection Time: 06/19/24 7:05 PM Result Value Hemoglobin 13.8 Hematocrit 40.6 Erythrocytes 4.77 MCV 85.1 RBC Distrib Width 12.1 (L) Platelet Count 316 Leukocytes 10.3 (H) Neutrophils 6.48 (H) Lymphocytes 2.78 Monocytes 0.68 Eosinophils 0.27 Basophils 0.04 Comprehensive Metabolic Panel Collection Time: 06/19/24 7:05 PM Result Value Potassium, P 3.8 Sodium, P 138 Chloride, P 102 Bicarbonate, P 24 Anion Gap, P 12 BUN (Blood Urea Nitrogen), P 15 Creatinine 0.99 Estimated GFR (eGFR) 61 Calcium, Total, P 9.0 Glucose, P 145 (H) Protein, Total, P 6.9 Albumin, P 4.1 Aspartate Aminotransferase (AST), P 20 Alkaline Phosphatase, P 72 Alanine Aminotransferase (ALT), P 15 Bilirubin, Total, P 0.3 D-Dimer Collection Time: 06/19/24 7:05 PM Result Value D-Dimer, P 475 Prothrombin Time (PT) Collection Time: 06/19/24 7:05 PM Result Value Prothrombin Time, P 11.5 INR 1.0 Troponin T, 2 Hour with 6 Hour Reflex, 5th Gen Collection Time: 06/19/24 9:11 PM Result Value Troponin T, 2 hr, 5th gen 688 (H) 2H Delta % 32 (A) 2H Delta Interp Changing (A) APTT (Activated Partial Thromboplastin Time) Collection Time: 06/19/24 11:17 PM Result Value Activated Partial Thrombopl Time, P 75 (H) Lipid Panel Collection Time: 06/19/24 11:17 PM Result Value Triglycerides 141 Cholesterol, Total 244 (H) Cholesterol, LDL, Calculated 162 (H) Cholesterol, HDL, S 57 Cholesterol, Non-HDL, Calculated 187 (H) Fasting (8 HR or more) No Hemoglobin A1c Collection Time: 06/19/24 11:17 PM Result Value Hemoglobin A1c, B 5.6 Troponin T, 5th Generation Collection Time: 06/20/24 12:51 AM Result Value Troponin T, 5th gen 682 (H) Heparin Anti-Xa Assay Collection Time: 06/20/24 12:51 AM Result Value Heparin Anti-Xa, P 0.34 CBC without Differential Collection Time: 06/20/24 7:43 AM Result Value Hemoglobin 13.9 Hematocrit 42.9 Erythrocytes 4.97 MCV 86.3 RBC Distrib Width 12.3 Platelet Count 293 Leukocytes 7.3 Basic Metabolic Panel Collection Time: 06/20/24 7:43 AM Result Value Potassium, S 5.0 Sodium, S 141 Chloride, S 104 Bicarbonate, S 26 Anion Gap 11 BUN (Blood Urea Nitrogen), S 12 Creatinine 0.96 Estimated GFR (eGFR) 64 Calcium, Total, S 9.3 Glucose, S 100 Magnesium Collection Time: 06/20/24 7:43 AM Result Value Magnesium, S 2.1 Heparin Anti-Xa Assay Collection Time: 06/20/24 7:43 AM Result Value Heparin Anti-Xa, P 0.44 ASSESSMENT / PLAN #1 Non-ST Elevation Myocardial Infarction (HCC) #2 Mid LAD myocardial bridging (coronary angiogram 11/23/2014) #2 Hyperlipidemia, with probable statin intolerance #4 History of tobacco use, total of 5 pack years, quit 30 years ago #3 GERD #4 Restless leg syndrome #5 Probable mild rheumatoid arthritis #6 Osteopenia #7 Depression Mrs. Ceballos is a 68 y.o. female who presented to [facility] ED for 2 weeks of exertional neck discomfort/fullness and intermittent lightheadedness. In the ED patient was mildly tachycardiac with rates in the low 100's but otherwise vitally stable and chest pain free. Initial EKG demonstrated sinustachycardia with possible ST elevations in leads II, V2 and V3. Lab workup was significant for mildleukocytosis of 10.3, normal electrolytes, and elevated and rising troponins (520,688) with positive delta of 32. Chest x-ray demonstrated no acute findings. EKG was repeated again and continued to demonstrate similar findings. CICU aws consultant was curbsided and felt EKG did not meet STEMI criteria but given rising troponins patient was aspirin loaded, started on IV heparin, [facility]. Patient was admitted to inpatient Cardiology Service. She arrived to PCU floor in stable condition and pain free. Repeat electrocardiogram showed similar ST changes, again reviewed with CICU aws consultant. Patient was continued on IV heparin and Plavix loaded this morning. Plan to proceed with coronary angiogram and PCI if indicated. Add beta-jennifer for guideline medical therapy. Ideally, patient should be on a statin. We'll revisit options with patient. Lastly, we reviewed her code status of DNR/DNI in light of planned procedure. She is agreeable to changing status to Full code and understands that she would remain as such for duration of the hospitalization. PLAN: Proceed for coronary angiogram with PCI if indicated Continue heparin infusion on-call to procedure Continue aspirin 81 mg daily, and initiate metoprolol 12.5 mg twice daily. Consider retrial of statin therapy vs referral to lipid clinic for consideration of PCSK9 inhibitor. Obtain transthoracic echocardiogram, assess LV function and overall structure of the heart. ADDENDUM @ 1444: TTE revealed normal LV with calculated EF 37%. 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 Perfusion of LV apex reduced. Possible apical left ventricular thrombus. Moderate mitral valve regurgitation. Mugf-hx-ddphrdno tricuspid valve regurgitation. Estimated RVSP 21 mm Hg. Normal RV systolic function. DVT PROPHYLAXIS: Heparin infusion. GI PROPHYLAXIS: Protonix (formulary exchange for omeprazole). DISPOSITION: Home self-care. Gracy Wynn APRN, C.N.P. 06/20/24 MARGIN CODE Total time: 60 min, Counseling Time: Greater than 50%. * Krissy Desai R.N. - 06/20/2024 7:31 AM CDT Proactive Integration of Mental Health Care in Cardiovascular Disease Screening Note Morgan Ceballos's chart was screened by a member of the Psychiatry Proactive Consultation based on their history and/or current presentation. Morgan Ceballos is noted to have the following risk factors: Psychiatric Diagnoses (past 5 years): None Behaviors: None Psychiatric History (past 10 years): None Psychotropic Medication Use (past 5 years): Antidepressants Psychosocial Barriers: None Psychiatry Active Problems: None CURRENT MEDICATIONS I have reviewed the patient's current scheduled and PRN medications. Scheduled Meds: aspirin, 81 mg, oral, Daily with morning meal calcium citrate-vitamin D3, 1 tablet, oral, Daily with morning meal metoprolol tartrate, 12.5 mg, oral, BID sqmhsnzi-gktlviplq-yfzbiwnrcyklw, 1 drop, left eye, 4x Daily pantoprazole, 40 mg, oral, Daily before morning meal pramipexole, 0.5 mg, oral, BID sodium chloride, 3 mL, intravenous, Q12H YARELIS Continuous Infusions: heparin (porcine) 100 Units/mL in NaCl 0.45% 250 mL infusion, 0-30 Units/kg/hr (Dosing Weight), Last Rate: 12 Units/kg/hr (06/20/24 0700) PRN Meds: acetaminophen bisacodyL calcium carbonate heparin (porcine) OR heparin (porcine) nitroglycerin sodium chloride sodium chloride traZODone [place] Suicide Severity Rating Scale (C-SSRS) - Short Version Based on screening, we have the following recommendations: [] 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 [x] Nursing to nursing support - preventive measures and management (e.g., delirium, suicide) [] Full Psychiatry Consultation - primary team to place order [] Recommend social work consultation - primary team to place order [] Recommend pet/music therapy consultation - primary nursing to place order [] Recommend OT consultation for coping skill education/support-primary team to place order [] Recommend Technical Services Representative Services consultation- primary nursing to place order [] Recommend social work/substance use consultation -primary team to place order [] Recommend outpatient psychiatric follow-up - primary team to place psychiatric consult order to coordinate [] No acute psychiatric intervention needed; please reach out if questions or concerns. [] Other [place] [phone] with questions. Krissy Desai R.N. 06/20/2024 Associated attestation - Mercedez Davenport M.D. - 06/20/2024 11:01 AM CDT Ms. Ceballos is a 68 y.o. female who was admitted on 06/19/2024 for Non-ST Elevation Myocardial Infarction (HCC) [I21.4]. A member of the proactive Consultation-Liaison Psychiatry team (Krissy Desai RN) screened the contents of the electronic medical record of Ms. Ceballos using a standardized process to identify potential behavioral morbidity, and I had an opportunity to review the contents of the electronic medical record and discuss the case with Krissy Desai RN, but did not personally examine Ms. Ceballos. Mercedez Smith M.D. documented in this encounter H&P Notes * Henrietta Conroy P.A.-C. - 06/19/2024 9:58 PM CDT CARDIOLOGY INPATIENT ADMISSION NOTE CHIEF COMPLAINT/REASON FOR VISIT NSTEMI Collaborating physician: Kb Underwood M.D., Ph.D. Admitting service: [facility] CVD Admit/Triage Hospital HISTORY OF PRESENT ILLNESS Ms. Ceballos is a 68 y.o. female who presented to [facility] for ED for 2 weeks of intermittent chest discomfort with exertion, dyspnea, and diaphoresis found to have an NSTEMI. [facility] service. She has medical comorbidities including but not limited to: Dyslipidemia, mid LAD myocardial bridging (angiogram 11/23/2014), GERD, depression, restless legs syndrome, probable mild rheumatoid arthritis, osteopenia, Patient presented to [facility] ED reporting chest ???fullness?? , intermittent dizziness, and diaphoresis that had been occurring for the last couple of weeks. Patient was noted to be mildly tachycardiac with heart rates in the low 100's but otherwise vitally stable with systolic pressures in the 130s. Initial EKG demonstrated sinus tachycardia with ventricular rate of [address] elevations in leads II, V2, and V3. Lab workup was significant for mild leukocytosis of 10.3 with elevatedneutrophils, unremarkable CMP with normal electrolytes, and elevated and rising troponins (520,688). Chest x-ray demonstrated no acute findings. EKG was again repeat given elevated troponins and continued to demonstrate similar findings as the previous EKG. Case was ran by Dr. Underwood who ultimately felt EKG did not meet STEMI criteria but given NSTEMI patient was aspirin loaded, started on IV heparin and transferred to [facility] Cardiology PCU for further management. On arrival to PCU, patient reports she has been having upper chest discomfort that develops with exertion starting 2 weeks ago. States the chest discomfort is located in her upper chest/the base of her neck and when it develops it is 4/10 in severity. Denies any radiation of the discomfort into herjaw or arm. Reports lightheadedness with the discomfort but otherwise no diaphoresis. Also states she has noticed racing palpitations at times with the discomfort but denies a history of diagnosed arrhythmias. Reports since her chest discomfort developed 2 weeks ago it has started becoming present with less activity to the point where it developed while she was climbing her stairs today. Patient confirms the discomfort only develops with activity not at rest and states it does resolve with restbut the duration until resolution has increased over the past two weeks. Patient denies any related dyspnea. Denies history of obstructive sleep apnea, orthopnea, or PND atnight. Denies any past use of oxygen. Patient denies history of presyncopal or syncopal episodes. Outside of the chest discomfort patient reports her health has been at baseline. States her weight has been stable with no acute increase/decrease in weight. Denies any peripheral or abdominal swelling. Denies any recent illness, fever, chills, nausea, vomiting or diarrhea. Prior to the development of chest discomfort patient reports she was regularly active walking at least 4 times a week. Denies any previous history of heart attack, stroke, or DVT/PE. Reports she has undergone previous workup for atherosclerosis where she was found to have bridging but otherwise no ischemic changes. States she recently underwent a CT to evaluate her calcium score which was 0. Patient denies any past bleeding history, denies noticing any hematuria, hematochezia, or hemoptysis. HOME MEDICATIONS Current Outpatient Medications on File Prior to Encounter: calcium citrate-vitamin D3 (CITRACAL+D) 1,184 mg (250 mg calcium)-200 unit per tablet, Take 1 tablet by mouth daily., 06/19/2024 wcusndtk-mbtcaivvw-gjfewgpgqkplc (Maxitrol) 3.5mg/mL-10,000 unit/mL-0.1 % ophthalmic suspension, Administer 1 drop into the left eye 4 (four) times a day for 10 days., 06/19/2024 omeprazole (PriLOSEC) [address] capsule, Take 1 capsule (40 mg total) by mouth every morning before breakfast. Please come to the clinic for follow-up, 06/19/2024 pramipexole (MIRAPEX) 0.5 mg tablet, Take 1 tablet (0.5 mg total) by mouth 2 (two) times a day. Please come to the clinic for follow-up, 06/18/2024 traZODone (DESYREL) 50 mg tablet, Take 1 tablet (50 mg total) by mouth daily. (Patient taking differently: Take 25 mg by mouth as needed for sleep.), 06/18/2024 [DISCONTINUED] benzalkonium chloride (REVITADERM WOUND CARE TOP), Apply topically. [DISCONTINUED] betamethasone dipropionate (DIPROLENE) 0.05 % cream, APPLY TO AFFECTED AREA(S) ONCE DAILY [DISCONTINUED] clobetasoL (TEMOVATE) 0.05 % ointment, Apply once a day up to 5 out of 7 days per week (Patient not taking: Reported on 09/21/2022) [DISCONTINUED] clobetasoL (TEMOVATE) 0.05 % ointment, Apply 1 application topically 2 (two) times aday. [DISCONTINUED] co-enzyme Q-10 (CO Q-10) 100 mg capsule, Take 1 capsule by mouth daily. [DISCONTINUED] FLUoxetine (PROzac) 20 mg capsule, TAKE ONE CAPSULE BY MOUTH EVERY DAY [DISCONTINUED] lovastatin (MEVACOR) 10 mg tablet, Take 1 tablet (10 mg total) by mouth daily. SOCIAL HISTORY reports that she has quit smoking. Her smoking use included cigarettes. She has a 10.5 pack-year smoking history. She has never used smokeless tobacco. She reports current alcohol use of about 2.0 standard drinks of alcohol per week. She reports that she does not use drugs. FAMILY HISTORY Family History Problem Relation Name Age of Onset DESIREE disease Brother Aneurysm Father Sudheer Ducelver Stroke Father Sudheer Julissa Diabetes Father Sudheer Dahl Hypertension Father Sudheer Dahl Hyperlipidemia Father Sudheer Dahl Heart failure Father Sudheer Daelver Skin cancer Father Sudheer Daelver Dementia Father Sudheer Daelver Parkinsons disease Father Sudheer Dahl Kidney failure Father Sudheer Dahl Peripheral vascular disease Father Sudheer Dahl Cataracts Father Sudheer Dahl Parkinsonism Father Sudheer Dahl Alcohol abuse Father Sudheer Dahl Hypertension Mother Kym Julissa Anxiety disorder Mother Kym Julissa Breast cancer Mother [place] 86 Diagnosed at 87 Cataracts Mother [place] Depression Mother Kym Julissa Heart disease Uncle maternal Thyroid disease Sister Tish Garzon Breast cancer Sister Tish Garzon diagnosed with Her2 positive Hypertension Sister Tish Garzon Thyroid disease Maternal Grandmother Alpha Walk Heart disease Paternal Grandfather Thyroid disease Sister Nicolasa Elizabeth Rheum arthritis Sister Nicolasa Elizabeth Rheum arthritis Paternal Grandmother Cecilia Julissa OBJECTIVE VITAL SIGNS: Temperature: [36.5 ??C-36.9 ??C] 36.9 ??C Heart Rate: [79-106] 79 Resp Rate: [12-26] 16 Blood Pressure: (111-142)/(73-106) 138/106 SpO2: [91 %-98 %] 97 % Weight: [64.6 kg-64.8 kg] 64.6 kg Pulse Rate: [71-109] 87 Body mass index is 23.73 kg/m??. PHYSICAL EXAMINATION General: Ms. Ceballos is a 68 y.o. female. Heart: Irregular rate and rhythm, no murmur rub or gallop. Positive peripheral pulses. Peripheral extremity edema: none. JVD: none. Lungs: On room air, normal respiratory effort, breath sounds clear and present bilaterally Abdomen: Soft, non-distended, non-tender to palpation throughout. Positive bowel sounds. Musculoskeletal/Joints: All 4 extremities moving equally without any limitations Mental: Alert and oriented to person place time and situation. Excellent historian. Neuro: Examined and normal, no neurological deficits were appreciated. Skin: Warm, dry, color normal for race. Grossly intact. Eyes: PERRLA, no scleral icterus. ENT: Mucous membranes moist, no oral lesions. Excellent dentition. Dentures: No. Lymph: No cervical or axillary adenopathy. DIAGNOSTICS Labs on 06/19/24 Hemoglobin: 13.8 Hematocrit: 40.6 Platelet count: 316 Leukocytes: 10.3 INR: 1.0 Sodium: 138 Potassium: 3.8 Chloride: 102 Bicarbonate: 24 Anion gap: 12 BUN: 15 Creatinine: 0.99 EGFR: 61 Total calcium: 9.0 Glucose: 145 Total bilirubin: 0.3 ALT: 15 AST: 20 Alkaline phosphatase: 72 Total protein: 6.9 Albumin: 4.1 Baseline troponin: 520 2 hour troponin: 688 2 hour delta: 32 NT pro BNP: 140 CXR on 06/19/24: No acute findings. No infiltrates or effusions. Normal cardiac size and pulmonary vascularity. Old fractures posterior left fourth through seventh ribs. EKG on 06/19/24 Sinus rhythm, ventricular rate equals [address] elevation of 1 mm in leads V2 and V3 ASSESSMENT / PLAN #1 NSTEMI #2 Mid LAD myocardial bridging (coronary angiogram 11/23/2014) #2 Hyperlipidemia, history of statin intolerance #4 History of tobacco use, total of 5 pack years #3 GERD #4 Restless leg syndrome #5 Probable mild rheumatoid arthritis #6 Osteopenia #7 Depression Ms. Ceballos is a 68 y.o. female who presented to [facility] ED for 2 weeks of exertional chest discomfort with related palpitations and lightheadedness. In the ED patient was mildly tachycardiac withrates in the low 100's but otherwise vitally stable and chest pain free. Initial EKG demonstrated sinus tachycardia with possible ST elevations in leads II, V2 and V3. Lab workup was significant for mild leukocytosis of 10.3, normal electrolytes, and elevated and rising troponins (520,688) with positive delta of 32. Chest x-ray demonstrated no acute findings. EKG was repeated again and continued to demonstrate similar findings. Dr. Underwood, CICU aws consultant, was curbsided and felt EKG did not meet STEMI criteria but given rising troponins patient was aspirin loaded, started on IV heparin, and transferred to [facility] Cardiology PCU for management on NSTEMI. On arrival to PCU patient is finally stable and chest pain-free. Repeat EKG continues to show similar ST changes in leads V2 and V3 without further acute ST changes in other leads. Ran EKG by Dr. Underwood in the CICU who stated EKG continues to not meet STEMI criteria. Given patient is currentlychest pain free, will continue IV heparin, plavix load in the morning, and plan for coronary angiography tomorrow. Will also get a 6 hour troponin to trend troponins until possible peak. Most recent TTE in the chart was 10+ years ago, will also get TTE tomorrow to assess overall cardiac function. Labs on admission also demonstrate hyperlipidemia with LDL of 162. Patient does report she has a history of severe statin intolerance including rosuvastatin. Given active NSTEMI and history of tobacco use, patient would benefit from the addition of a PCSK9i for management of hyperlipidemia. Will have day team discuss further with patient in the AM. On admission code status was discussed with patient who ultimately requested to be DNR/DNI but willing to change to Full Code for coronary angiography. It was emphasized that given patient's active NSTEMI her risk of possible cardiac arrest was higher and that if she remained DNR/DNI we would be unable to intervene if she were to arrest overnight. Patient verbalized her understanding of the situation and re-emphasized her wishes to remain DNR/DNI overnight. Patient's was in the room forrepeat discussion and both patient and were in agreement to remain DNR/DNI until procedure tomorrow even with elevated risk of cardiac arrest in the setting of NSTEMI. Plan is for patient to discharge to home once medically stable. Plan: NSTEMI Continue IV heparin Continue to trend troponins until peak Plavix 600 mg load in the AM Coronary angiography tomorrow TTE tomorrow to reassess cardiac function Consider starting PCSK9i for hyperlipidemia due to statin intolerance DNR/DNI Willing to be full code for coronary angiography Continue home medications: Calcium citrate-vitamin D3 daily, Maxitrol drops 4 times daily in the left eye, pantoprazole 40 mg daily, pramipexole 0.5 mg twice daily Plan to discharge to home once medically ready VTE: Moderate intensity IV heparin. Tubes/lines: PIV GI: Pantoprazole Code Status: DNR/DNI, willing to change code status for procedure Disposition: Home - self care Henrietta Conroy P.A.-C., #[id number] 06/19/24 I personally spent a total of 70 minutes providing and coordinating care today. Associated attestation - Fredrick Gutierrez M.D. - 06/20/2024 4:50 PM CDT I have interviewed and examined the patient and agree with the history and physical as recorded below. 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 Itis unclear whether there is any radiation to the arm whether this is related to shoulder discomfort/injury. This is consistently been present with exertion and relieved by rest. Ultimately she presented for medical attention, and an electrocardiogram demonstrated 1-[address] segment elevation, albeit concave upwards. Initial troponin was 520, increasing to 688 and then dropping to 682, in the setting of an LDL of 162 and previous intolerance to statins. She is currently pain-free. We will screened for ventricular function with echocardiography, implant on angiography for potential LAD lesion in the context of previously known LAD bridging and otherwise no significant obstructive coronary lesions. She has a sister with a history of takotsubo, and that would be another possibility here. We will determine optimal therapy following angiography and echocardiography. Will consider QOD rosuvastatin 5mg vs. PCSK9 inhibitor The rest is as detailed below. #1 NSTEMI #2 Mid LAD myocardial bridging (coronary angiogram 11/23/2014) #2 Hyperlipidemia, history of statin intolerance #4 History of tobacco use, total of 5 pack years #3 GERD #4 Restless leg syndrome #5 Probable mild rheumatoid arthritis #6 Osteopenia #7 Depression #8 Rule out stress cardiomyopathy documented in this encounter Consult Notes * Rosalba Wright, CEP - 06/21/2024 2:24 PM CDTAssociated Order(s): IP CONSULT TO CARDIAC REHABILITATION Cardiac Rehabilitation Referral Reason for Visit: Cardiovascular Health Clinic consultation for referral to cardiac rehabilitation. Liaison met with the patient/family to discuss cardiac rehabilitation referral. Patient/family was provided with progressive verbal and printed home-going exercise guidelines. Patient/family understands and agrees with the exercise guidelines. 1. Participation in a Phase II cardiac rehabilitation program is recommended. Patient was informed about what cardiac rehabilitation has to offer and why it is beneficial. The plan of care for the rehabilitation program consists of risk factor modification, monitored and supervised exercise and assistance in the recovery process with ongoing education and support. Patient is interested in attending a cardiac rehabilitation program. 2. Eligibility: [place] 3. Exceptions/exclusions: None. 4. Referral: Patient agreed with referral to a cardiac rehabilitation program. Please see dischargeorder and/or letter for program details. 5. Appropriate referral information will be sent to the receiving cardiac rehabilitation program asapplicable. Patient provided verbal authorization to send relevant materials to the cardiac rehab program. [facility] [address] [place] [address] Recommend that the patient check with insurance company to verify coverage of the cost of cardiac rehabilitation program visits. documented in this encounter Nursing Notes * Donavan Jones, R.N. - 06/21/2024 4:42 PM CDT Shift Goals: Clinical Goals for the Shift: Patient will remain free of pain during my shift. Identify possible barriers to meeting goals/advancing plan of care: None End of Shift Summary: Goal met. Patient education was reviewed and completed with the patient. She was able to teach back and indicate understanding of the education. Patient discharged with spouse to their home. Problem: PAIN - ADULT Goal: PT VERBALIZES/DEMONSTRATES ADEQUATE COMFORT LEVEL OR BASELINE Outcome: Completed Problem: KNOWLEDGE DEFICIT Goal: Patient/family/caregiver demonstrates understanding of disease process, treatment plan, medications, and discharge instructions Outcome: Completed Problem: INFECTION - ADULT Goal: Absence of infection during hospitalization Outcome: Completed Problem: SKIN/TISSUE INTEGRITY Goal: Skin/Tissue integrity maintained or improved Outcome: Completed Goal: Oral and Nasal mucous membranes remain intact Outcome: Completed Problem: SAFETY ADULT Goal: Maintain a safe environment Outcome: Completed Problem: DISCHARGE PLANNING Goal: Patient discharge needs identified Outcome: Completed Problem: SAFETY ADULT - RISK FOR FALL AND OR FALL INJURY Goal: Patient remains free from fall/fall injury Outcome: Completed Electronically signed by: Donavan Jones R.N. 06/21/24 4:44 PM CDT documented in this encounter Miscellaneous Notes * Hospital Course - Gracy Wynn APRN, C.N.P. - 06/19/2024 10:04 PM CDT Mrs. Ceballos is a 68 y.o. female who presented to the [facility] ED for evaluation of exertional chest discomfort with related palpitations and lightheadedness. Medical comorbidities including but not limited to: Dyslipidemia, mid LAD myocardial bridging (angiogram 11/23/2014), GERD, depression, restless legs syndrome, probable mild rheumatoid arthritis, and osteopenia. She was evaluated for chest pain in 2014. Coronary angiogram at that time noted normal coronary arteries, showed mid LAD myocardial bridging. Bridging was not felt to be significant and was not contributing to her symptoms however may have explained her prior abnormal stress test results. In the ED patient was mildly tachycardiac with rates in the low 100's but otherwise vitally stable and chest pain free. Initial EKG demonstrated sinus tachycardia with possible ST elevations in leadsII, V2 and V3. Lab workup was significant for mild leukocytosis of 10.3, normal electrolytes, and elevated and rising troponins (520,688) with positive delta of 32. Chest x-ray demonstrated no acute findings. EKG was repeated again and continued to demonstrate similar findings. Dr. Underwood, CICU aws consultant, was curbsided and felt EKG did not meet STEMI criteria but given rising troponins patient was aspirin loaded, started on IV heparin, and transferred to [facility] Cardiology PCU for management on NSTEMI. On arrival to PCU, patient was vitally stable and chest pain free. Patient was Plavix loaded and underwent coronary angiography which revealed normal coronary arteries and moderate coronary artery myocardial bridge. TTE on 06/20/24 demonstrated normal LV with calculated EF 37%. 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 Perfusion of LV apex reduced. Possible apical left ventricular thrombus. Moderate mitral valve regurgitation. Uumi-ui-hgpliafk tricuspid valve regurgitation. Estimated RVSP 21 mm Hg. Normal RV systolic function. Post coronary angiogram, patient was continued on heparin infusion. This was transitioned to Eliquis. Metoprolol succinate and low-dose losartan initiated for guideline medical therapy. Patient was agreeable to retrial of statin and was initiated on Crestor every other day. We will arrange for follow-up in Cardiology for ongoing monitoring, and titration of medication. She will also need repeat transthoracic echocardiogram in about 2-3 months to reassess noted LV thrombus and LV function. Participation in cardiac rehabilitation recommended. Patient was discharged home vitally stable on 06/21/2024. documented in this encounter Plan of Treatment Upcoming Encounters Date Type Department Care Team (Latest Contact Info) Description 07/18/2024 8:00 AM CDT Appointment Department of Cardiac Rehabilitation in [place], [place] [address] [place] [id number] Fredrick Gutierrez M.D. [address] [place] [address] 07/18/2024 12:20 PM CDT Appointment Department of Cardiovascular Diseases in [address] [phone] Gracy Wynn APRN, C.N.P. [address] [place] [address] 07/20/2024 3:00 PM CDT Comprehensive Visit Department of Cardiovascular Diseases in [address] [phone] Malou Mckenzie APRN, C.N.P. [address] [place] [address] Discharge Disposition: Home or Self Care Scheduled Orders Name Type Priority Associated Diagnoses Orde r Schedule Cardiac Rehab Program Card Rehab Routine Non-ST Elevation Myocardial Infarction (HCC) 45 Occurrences starting 06/21/2024 until 06/21/2025 documented as of this encounter Procedures Procedure Name Priority Date/Time Associated Diagnosis Comments CBC WITHOUT DIFFERENTIAL, B Routine 06/21/2024 7:57 AM CDT BASIC METABOLIC PANEL, S/P Routine 06/21/2024 7:57 AM CDT HEPARIN LEVEL ANTI-XA ASSAY, P Routine 06/21/2024 7:56 AM CDT C-REACTIVE PROTEIN (CRP), S/P Routine 06/21/2024 7:54 AM CDT CARDIAC CATHETERIZATION Routine 06/20/20 5:21 PM CDT Non-ST Elevation Myocardial Infarction (HCC) ADULT OXYGEN THERAPY Routine 06/20/2024 4:46 PM CDT (TTE) 2D ECHO DOPPLER COLOR AND CONTRAST Routine 06/20/2024 12:39 PM CDT ADULT OXYGEN THERAPY Routine 06/20/2024 8:01 AM CDT HEPARIN LEVEL ANTI-XA ASSAY, P Timed 06/20/2024 7:43 AM CDT CBC WITHOUT DIFFERENTIAL, B Routine 06/20/2024 7:43 AM CDT MAGNESIUM, S Routine 06/20/2024 7:43 AM CDT BASIC METABOLIC PANEL, S/P Routine 06/20/2024 7:43 AM CDT HEPARIN LEVEL ANTI-XA ASSAY, P Timed 06/20/2024 12:51 AM CDT TROPONIN T, 5TH GEN, P Timed 12:51 AM CDT ADULT OXYGEN THERAPY Routine 06/19/2024 11:31 PM CDT ADULT OXYGEN THERAPY Routine 06/19/2024 11:31 PM CDT LIPID PANEL, S STAT 06/19/2024 11:17 PM CDT ACTIVATED PARTIAL THROMBOPLASTIN TIME (APTT), P STAT 06/19/2024 11:17 PM CDT HEMOGLOBIN A1C, B STAT 06/19/2024 11: 17 PM CDT ECG Routine 06/19/2024 10:51 PM CDT documented in this encounter Results * CBC without Differential (06/21/2024 7:57 AM CDT) Hemoglobin 13.9 11.6 - 15.0 g/dL 06/21/2024 [...] Rich Duff P.A.-C., M.S. LAB BLOOD ADD-ON [facility] [address] [place], [place] [address] [address] [place] [address] * Basic Metabolic Panel (06/21/2024 7:57 AM CDT) [facility] Potassium, S 4.8 3.6 - 5.2 mmol/L [...] Wynn APRN, C.N.P. LAB BLOOD AD D-ON [facility] [address] [place] [address], [facility] DTL [facility] [address] [place] [address] * Heparin Anti-Xa Assay (06/21/2024 7:56 AM CDT) Heparin Anti-Xa, P 0.46 IU/mL 2023 9:45 [...] BLOOD NO N ADD-ON Performing Organization Address City/[facility]/ZIP Co de Phone Number [facility] [address] [place] [address] * (ABNORMAL) CRP (C-Reactive Protein) (06/21/2024 7:54 AM CDT) Pathologist [facility] C-Reactive Protein (CRP), S 8.7(H) <5.0 mg/L 06/21/2024 10:50 AM CDT DT Blood (Blood, Venous) 06/21/2024 7:54 AM CDT 06/21/2024 10:22 AM CDT Gracy Wynn APRN C.N.P. LAB BLOOD AD D-ON Performing Organization Address City/[facility]/ZIP Co de Phone Number [facility] [address] [place] [address] * CORONARY ANGIOGRAPHY (06/20/2024 5:21 PM CDT) [...] per Echocardiography Contrast Administration Protocol Reference Document [id number] Rev 02/05/2022. Patient met an inclusion criterion [...] collapse (>50%). 15. Emergency communication to Gracy Wynn APRN, CNP at 13:25 hours, 20 June, ??regarding the critical echocardiography results was completed and acknowledged. Procedure Note Jefferson Hurtado M.D. - 06/20/2024 For the complete report, see the Order-Level Documents. Hemodynamics Heart Rate: 61 BPM Blood Pressure: 104 / 81 mmHg ECG: Sinus rhythm Final Impressions 1. Normal left ventricular chamber size. 2. Calculated 2-D monoplane volumetric left ventricular ejection cifprjne49%. 3. Regional wall motion abnormalities were present [...] administered per EchocardiographyContrast Administration Protocol Reference Document [id number] Rev02/05/2022. Patient met an inclusion criterion and did not havecontraindications in screening sections. For the complete report, see the Order-Level Documents. Henrietta Conroy P.A.-C. CV ECHO PROCEDURES * Heparin Anti-Xa Assay (06/20/2024 7:43 AM CDT) Heparin Anti-Xa, P 0.44 IU/mL 2023 8:45 AM CDT DTL Comment: UFH therapeutic range: [...] or unfractionated heparin (UFH). Blood (Blood, Venous) 06/20/2024 7:43 AM CDT 06/20/2024 8:23 AM CDT Henrietta Conroy P.A.-C. LAB BLOOD NON ADD-O N Performing Organization Address City/[facility] Co de Phone Number [facility] [address] [place] [address] * Magnesium (06/20/2024 7:43 AM CDT) Magnesium, S 2.1 1.7 - 2.3 mg/dL 06/20/2024 9:58 AM CDT DTL Blood (Blood, Venous) 06/20/2024 7:43 AM CDT 06/20/2024 8:33 AM CDT Henrietta Conroy P.A.-C. LAB BLOOD ADD-ON Performing Organization Address [facility] Co de Phone Number [facility] [address] [place] [address] * Basic Metabolic Panel (06/20/2024 7:43 AM CDT) Potassium, S 5.0 3.6 - 5.2 mmol/L 06/20/2024 9:58 AM CDT DTL Sodium, S 141 135 - 145 mmol/L 06/20/2024 9:58 AM CDT DTL Chloride, S 104 98 - 107 mmol/L 06/20/2024 9:58 AM CDT DTL Bicarbonate, S 26 22 - 29 mmol/L 06/20/2024 9:58 AM CDT DTL Anion Gap 11 7 - 15 06/20/2024 9:58 AM CDT DTL BUN (Blood Urea Nitrogen), S 12 6 - 21 mg/dL 06/20/2024 9:58 AM CDT DTL Creatinine 0.96 0.59 - 1.04 mg/dL 06/20/2024 9:58 AM CDT DTL Estimated GFR (eGFR) 64 >=60 mL/min/BSA 06/20/2024 9:58 AM CDT DTL Comment: Estimated GFR calculated using the 2020 CKD_EPI creatinine equation. Calcium, Total, S 9.3 8.8 - 10.2 mg/dL 06/20/2024 9:58 AM CDT DTL Glucose, S 100 70 - 140 mg/dL 06/20/2024 9:58 AM CDT DTL Blood (Blood, Venous) 06/20/2024 7:43 AM CDT 06/20/2024 8:33 AM CDT Henrietta Conroy P.A.-C. LAB BLOOD ADD-ON [facility] [address] [facility] [address] [place] [address] * CBC without Differential (06/20/2024 7:43 AM CDT) Hemoglobin 13.9 11.6 - 15.0 g/dL 06/20/2024 8:51 AM CDT DTL Hematocrit 42.9 35.5 - 44.9 % 06/20/2024 8:51 AM CDT DTL Erythrocytes 4.97 3.92 - 5.13 x10(12)/L 06/20/2024 8:51 AM CDT DTL MCV 86.3 78.2 - 97.9 fL 06/20/2024 8:51 AM CDT DTL RBC Distrib Width 12.3 12.2 - 16.1 % 06/20/2024 8:51 AM CDT DTL Platelet Count 293 157 - 371 x10(9)/L 06/20/2024 8:51 AM CDT DTL Leukocytes 7.3 3.4 - 9.6 x10(9)/L 06/20/2024 8:51 AM CDT [facility] Blood (Blood, Venous) 06/20/2024 7:43 AM CDT 06/20/2024 8:22 AM CDT Rich Duff P.A.-C. MClifford LAB BLOOD ADD-ON [facility] [address] [place] [address] * Heparin Anti-Xa Assay (06/20/2024 12:51 AM CDT) Pathologist [facility] Heparin Anti-Xa, P 0.34 IU/mL 2023 1:29 AM CDT [facility] Comment: UFH therapeutic range: ?? 0.30-0.70 IU/mL LMWH therapeutic range: 0.50-1.00 IU/mL 0.50-1.00 IU/mL for twice daily dosing ?? 1.00-2.00 IU/mL for once daily dosing (sample obtained 4-6 hours following subcutaneous injection) LMWH prophylactic range:0.10-0.30 IU/mL ----ADDITIONAL INFORMATION---- Heparin Anti-Xa is used to measure heparin concentrations in patients receiving low molecular weight heparin (LMWH) or unfractionated heparin (UFH). Blood (Blood, Venous) 06/20/2024 12:51 AM CDT 06/20/2024 1:12 AM CDT Henrietta Cnoroy P.A.-C. LAB BLOOD NON ADD-O N [facility] [address] [place] [address] * (ABNORMAL) Troponin T, 5th Generation (06/20/2024 12:51 AM CDT) Pathologist [facility] Troponin T, 5th gen 682(H) <=10 ng/L 06/20/2024 1:14 AM CDT [facility] Comment:Consider acute myoca rdial injury Blood (Blood, Venous) 06/20/2024 12:51 AM CDT 06/20/2024 12:58 AM CDT Rich Duff P.A.-C., M.S. LAB BLOOD ADD-ON [facility] [address] [place] [address] * Hemoglobin A1c (06/19/2024 11:17 PM CDT) Pathologist [facility] Hemoglobin A1c, B 5.6 4.0 - 5.6 % 06/20/2024 1:10 AM CDT DT Blood (Blood, Venous) 06/19/2024 11:17 PM CDT 06/19/2024 11:31 PM CDT Rich Duff P.A.-C., M.S. LAB BLOOD ADD-ON [facility] [address] [place] [address], [facility] [address] [place] [address] * (ABNORMAL) Lipid Panel (06/19/2024 11:17 PM CDT) Pathologist [facility] Triglycerides 141 mg/dL 06/20/2024 12:00 AM CDT [...] M.S. LAB BLOOD ADD-ON Performing Organization Address [facility] Co de Phone Number [facility] [address] [place] [address], [facility] [address] [place] [address] * (ABNORMAL) APTT (Activated Partial Thromboplastin Time) (06/19/2024 11:17 PM CDT) Activated Partial Thrombopl Time, P 75(H) 25 - 37 sec 06/19/2024 11:46 PM CDT STMA Blood (Blood, Venous) 06/19/2024 11:17 PM CDT 06/19/2024 11:24 PM CDT Rich Duff P.A.-C., M.S. LAB BLOOD ADD-ON [facility] [address] [place] [address], [facility] [address] [place] [address] * ECG 12 Lead (06/19/2024 10:51 PM CDT) Ventricular Rate ECG/Min 78 BPM MUSE NV Interval 138 ms MUSE QRSD Interval 84 ms MUSE QT Interval 378 ms MUSE QTC Interval 430 ms MUSE P [place] 59 degrees MUSE R [place] -20 degrees MUSE T Wave [place] 38 degrees MUSE 06/19/2024 10:5 1 PM [...] JOSSELYN Sy Henrietta Conroy P.A.-C. ECG ORDERABLES MUSE NA documented in this encounter Visit Diagnoses Diagnosis Non-ST Elevation Myocardial Infarction (HCC)- Primary Non-ST Elevation Myocardial Infarction (HCC) Non-ST Elevation Myocardial Infarction (HCC) documented in this encounter Admitting Diagnoses Diagnosis Non-ST Elevation Myocardial Infarction (HCC) documented in this encounter Administered Medications Inactive Administered Medications - up to 3 most recent administrations Medication Order MAR Action Action Date Dose Rate Site acetaminophen tablet 1,000 mg (TylenoL) 1,000 mg, oral, Every 6 hours PRN, mild pain or score 1-3 of 10, fever, Notify sevice prior to first administration for fever, Starting on Wed06/20/24 at 0230 Given 06/20/2024 9:08 AM CDT 1,000 mg apixaban tablet 5 mg (Eliquis) 5 mg, oral, 2 times daily, First dose on Wed06/21/24 at 1015, Drug Monitoring Program: Pharmacist to adjust medication dosing based on indication and drug clearance factors. Given 06/21/2024 11:28 AM CDT 5 mg aspirin chewable tablet 243 mg 243 mg, oral, Once, On Wed06/20/24 at 1645, For 1 dose, Preprocedure (CV) Given 06/20/2024 4:26 PM CDT 243 mg aspirin chewable tablet 81 mg 81 mg, oral, Daily with morning meal, First dose on Wed06/20/24 at 0800 Given 06/21/2024 8:26 AM CDT 81 mg Given 06/20/2024 9:38 AM CDT 81 mg calcium citrate-vitamin D3 315 mg-5 mcg (200 Unit) per tablet 1 tablet (Citracal + D3) 1 tablet, oral, Daily with morning meal, First dose on Wed06/20/24 at 0800, calcium citrate/vitamin D3 (same frequency) was interchanged for calcium citrate/vitamin D 315 mg/250 units Given 06/21/2024 8:25 AM CDT 1 tablet Given 06/20/2024 9:08 AM CDT 1 tablet clopidogreL tablet 600 mg (Plavix) 600 mg, oral, Once, On Wed06/20/24 at 0900, For 1 dose Given 06/20/2024 9:09 AM CDT 600 mg heparin (porcine) 100 Units/mL in NaCl 0.45% 250 mL infusion 0-30 Units/kg/hr ? 64.6 kg Dosing weight (0-19.38 mL/hr), intravenous, Continuous, Starting on Wed06/19/24 at 2330, 25,000 Units in 250 mL, Intensity type: Moderate, Starting Dose (units/kg/hr): 12, Anti-Xa < 0.1: Adjust Dose (Units/kg/hr) by: 4, Anti-Xa < 0.1: Loading Dose (Units/kg): 60, Anti-Xa < 0.1: Repeat anti-Xa: 6 hours, Anti-Xa 0.1-0.19: Adjust Dose (Units/kg/hr) by: 2, Anti-Xa 0.1-0.19: Loading Dose (Units/kg): 30, Anti-Xa 0.1-0.19: Repeat anti-Xa: 6 hours, Anti-Xa 0.2-0.5: Adjust Dose (Units/kg/hr) by: 0, Anti-Xa 0.2-0.5: Repeat anti-Xa: 6 hours. If two consecutive therapeutic result, re-check next AM., Anti-Xa > 0.19: Loading Dose (Units/kg): 0, Anti-Xa 0.51-0.6: Adjust Dose (Units/kg/hr) by: -1, Anti-Xa 0.51-0.6: Repeat anti-Xa: 6 hours, Anti-Xa 0.61-0.9: Hold Infusion: Stop infusion for 1 hour, Anti-Xa 0.61-0.9: Adjust Dose (Units/kg/hr) by: -2, Anti-Xa 0.61-0.9: Repeat anti-Xa: 6 hours after Heparin resumed, Anti-Xa 0.91-1.5: Hold Infusion: Stop infusion for 2 hours, Anti-Xa 0.91-1.5: Adjust Dose (Units/kg/hr) by: -4, Anti-Xa 0.91-1.5: Repeat anti-Xa: 6 hours after Heparin resumed, Anti-Xa > 1.5: Hold Infusion: Stop infusion until anti-Xa < 1.2, Anti-Xa > 1.5: Adjust Dose (Units/kg/hr) by: -4, Anti-Xa > 1.5: Repeat anti-Xa: every 2 hours until anti-Xa less than 1.2 Rate/Dose Verify 06/20/2024 3:00 PM CDT 12 Units/kg/hr 7.75 mL/hr Rate/Dose Change 06/20/2024 9:53 AM CDT 12 Units/kg/hr 7.7 5 mL/hr Rate/Dose Verify 06/20/2024 7:00 AM CDT 12 Units/kg/hr 7.7 5 mL/hr heparin (porcine) 100 Units/mL in NaCl 0.45% 250 mL infusion 0-30 Units/kg/hr ? 64.6 kg Dosing weight (0-19.38 mL/hr), intravenous, Continuous, Starting on Wed06/20/24 at 2130, 25,000 Units in 250 mL, Intensity type: Moderate, Starting Dose (units/kg/hr): 12, Anti-Xa < 0.1: Adjust Dose (Units/kg/hr) by: 4, Anti-Xa < 0.1: Loading Dose (Units/kg): 60, Anti-Xa < 0.1: Repeat anti-Xa: 6 hours, Anti-Xa 0.1-0.19: Adjust Dose (Units/kg/hr) by: 2, Anti-Xa 0.1-0.19: Loading Dose (Units/kg): 30, Anti-Xa 0.1-0.19: Repeat anti-Xa: 6 hours, Anti-Xa 0.2-0.5: Adjust Dose (Units/kg/hr) by: 0, Anti-Xa 0.2-0.5: Repeat anti-Xa: 6 hours. If two consecutive therapeutic result, re-check next AM., Anti-Xa > 0.19: Loading Dose (Units/kg): 0, Anti-Xa 0.51-0.6: Adjust Dose (Units/kg/hr) by: -1, Anti-Xa 0.51-0.6: Repeat anti-Xa: 6 hours, Anti-Xa 0.61-0.9: Hold Infusion: Stop infusion for 1 hour, Anti-Xa 0.61-0.9: Adjust Dose (Units/kg/hr) by: -2, Anti-Xa 0.61-0.9: Repeat anti-Xa: 6 hours after Heparin resumed, Anti-Xa 0.91-1.5: Hold Infusion: Stop infusion for 2 hours, Anti-Xa 0.91-1.5: Adjust Dose (Units/kg/hr) by: -4, Anti-Xa 0.91-1.5: Repeat anti-Xa: 6 hours after Heparin resumed, Anti-Xa > 1.5: Hold Infusion: Stop infusion until anti-Xa < 1.2, Anti-Xa > 1.5: Adjust Dose (Units/kg/hr) by: -4, Anti-Xa > 1.5: Repeat anti-Xa: every 2 hours until anti-Xa less than 1.2 Restarted 06/20/2024 9:31 PM CDT 12 Units/kg/hr 7.75 mL/hr losartan tablet 12.5 mg (Cozaar) 12.5 mg, oral, Daily, First dose on Wed06/21/24 at 1015 Given 06/21/2024 11:28 AM CDT 12.5 mg metoprolol succinate 24 hr tablet 25 mg (Toprol XL) 25 mg, oral, Daily, First dose on Wed06/21/24 at 0900, Do NOT crush or chew. Tablet may be split on score if needed. Given 06/21/2024 8:26 AM CDT 25 mg metoprolol tablet 12.5 mg (Lopressor) 12.5 mg, oral, 2 times daily, First dose on Wed06/20/24 at 0900 Given 06/20/2024 8:59 PM CDT 12.5 mg Given 06/20/2024 9:08 AM CDT 12.5 mg tcvyohbz-tnuqntfox-poxmiesvqbgjk ophthalmic suspension 1 drop (Maxitrol) 1 drop, left eye, 4 times daily, First dose on Wed06/20/24 at 0800, For 10 days, Shake well. Given 06/21/2024 11:28 AM CDT 1 drop Given 06/21/2024 8:26 AM CDT 1 drop Given 06/20/2024 9:00 PM CDT [address] tablet 40 mg (Protonix) 40 mg, oral, Daily before morning meal, First dose on Wed06/20/24 at 0700, pantoprazole 40 mg oral daily was interchanged for omeprazole 20 or 40 mg oral daily Swallow whole. Do NOT crush, chew, or split tablet. Given 06/21/2024 6:29 AM CDT 40 mg Given 06/20/2024 6:36 AM CDT 40 mg perflutren lipid microspheres injection (Definity) intravenous, Once in imaging, contrast, Starting on Wed06/20/24 at 1240, For 1 dose, Intraprocedure - Diagnostic, See protocol. Given 06/20/2024 12:42 PM CDT 3 mL pramipexole tablet 0.5 mg (Mirapex) 0.5 mg, oral, 2 times daily, First dose (after last modification) on Wed06/20/24 at 0045 Given 06/20/2024 8:58 PM CDT 0.5 mg Given 06/20/2024 1:10 AM CDT 0.5 mg rosuvastatin tablet 5 mg (Crestor) 5 mg, oral, Every other day, First dose on Wed06/21/24 at 2100 sodium chloride 0.9 % injection 10 mL 10 mL, intravenous, As needed, line care, Starting on Wed06/20/24 at 1240, Intraprocedure - Diagnostic, Prior to and following infusion and between multiple consecutive infusions: sodium chloride 0.9 % injection Given 06/20/2024 12:43 PM CDT 10 mL sodium chloride 0.9 % injection 3 mL 3 mL, intravenous, Every 12 hours scheduled, First dose on Wed06/20/24 at 0900, Peripheral Intravenous Catheter and Rapid Infusion Catheter, when no infusion to maintain patency Given 06/20/2024 9:33 PM CDT 3 mL traZODone tablet 25 mg (DesyreL) 25 mg, oral, Bedtime PRN, sleep, Starting on Wed06/20/24 at 0010 Given 06/20/2024 8:58 PM CDT 25 mg Given 06/20/2024 12:26 AM CDT 25 mg documented in this encounter Active and Recently Administered Medications Times are shown in CDT. Scheduled Medication Order 06/19/2024 06/20/2024 06/21/2024 apixaban tablet 5 mg (Eliquis) 5 mg, oral, 2 times daily, First dose on Wed06/21/24 at 1015, Drug Monitoring Program: Pharmacist to adjust medication dosing based on indication and drug clearance factors. 1128 (Given - Provid er: Donavan Jones RBobby) aspirin chewable tablet 243 mg (COMPLETED) 243 mg, oral, Once, On Wed06/20/24 at 1645, For 1 dose, Preprocedure (CV) 1626 (Given - Provider: Radha Hartmann RQuyenNQuyen) aspirin chewable tablet 81 mg 81 mg, oral, Daily with morning meal, First dose on Wed06/20/24 at 0800 0938 (Given - Provider: Jennifer Barron RQuyenN.)1623 (MAR Hold - Provider: Transfer Provider, Automatic - Reason: Patient not available)1817 (MAR Unhold - Provider: Transfer Provider, Automatic) 0826 (Given - Provider: Donavan D Jorde, R.N.) calcium citrate-vitamin D3 315 mg-5 mcg (200 Unit) per tablet 1 tablet (Citracal + D3) 1 tablet, oral, Daily with morning meal, First dose on Wed06/20/24 at 0800, calcium citrate/vitamin D3 (same frequency) was interchanged for calcium citrate/vitamin D 315 mg/250 units 0908 (Given - Provider: Jennifer Barron RQuyenN.)1623 (DEC Hold - Provider: Transfer Provider, Automatic - Reason: Patient not available)1816 (DEC Unhold - Provider: Transfer Provider, Automatic) 08 (Given - Provider: Vashti RichN.) clopidogreL tablet 600 mg (Plavix) (COMPLETED) 600 mg, oral, Once, On Wed06/20/24 at 0900, For 1 dose 09 (Given - Provider: Jennifer Barron R.N.) losartan tablet 12.5 mg (Cozaar) 12.5 mg, oral, Daily, First dose on Wed06/21/24 at 1015 1128 (Given - Provid er: Vashti RichN.) metoprolol succinate 24 hr tablet 25 mg (Toprol XL) 25 mg, oral, Daily, First dose on Wed06/21/24 at 0900, Do NOT crush or chew. Tablet may be split on score if needed. 0826 (Given - Provid er: Vashti RichN.) metoprolol tablet 12.5 mg (Lopressor) (CANCELED) 12.5 mg, oral, 2 times daily, First dose on Wed06/20/24 at 0900 0908 (Given - Provider: Jennifer Barron R.N.)1623 (DEC Hold - Provider: Transfer Provider, Automatic - Reason: Patient not available)1816 (DEC Unhold - Provider: Transfer Provider, Automatic)2058 (Given - Provider: Janina Corea R.N.) tjyxzbpa-xpsuytnsz-alwtdhy hasone ophthalmic suspension 1 drop (Maxitrol) 1 drop, left eye, 4 times daily, First dose on Wed06/20/24 at 0800, For 10 days, Shake well. 0908 (Given - Provider: Jennifer Barron R.N.)1236 (Given - Provider: Jennifer Barron RQuyenN.)1623 (DEC Hold - Provider: Transfer Provider, Automatic - Reason: Patient not available)1700 (Not Given - Provider: Tasha Mason R.N. - Reason: See Provider Order)181 (MAR Unhold - Provider: Transfer Provider, Automatic)182 (Given - Provider: Tasha Mason R.N.)2100 (Given - Provider: Janina Corea R.N.) 0826 (Given - Provider: Donavan Jones R.N.)1128 (Given - Provider: Donavan Jones R.N.)1700 (Due) pantoprazole DR tablet 40 mg (Protonix) 40 mg, oral, Daily before morning meal, First dose on Wed06/20/24 at 0700, pantoprazole 40 mg oral daily was interchanged for omeprazole 20 or 40 mg oral daily Swallow whole. Do NOT crush, chew, or split tablet. 0636 (Given - Provider: Janina Corea R.N.)1623 (DEC Hold - Provider: Transfer Provider, Automatic - Reason: Patient not available)181 (MAR Unhold - Provider: Transfer Provider, Automatic) 0629 (Given - Provider: Janina Corea RQuyenN.) pramipexole tablet 0.5 mg (Mirapex) 0.5 mg, oral, 2 times daily, First dose (after last modification) on Wed06/20/24 at 0045 0110 (Given - Provider: Janina Corea RQuyenN.)1623 (MAR Hold - Provider: Transfer Provider, Automatic - Reason: Patient not available)181 (MAR Unhold - Provider: Transfer Provider, Automatic)2057 (Given - Provider: Janina Corea R.N.)2106 (Not Given - Provider: Vashti PradoN. - Reason: See Provider Order - Comment: repeat order?? dose given at 2057) 0837 (Not Given - Provider: Donavan Jones R.N. - Reason: Patient/family refused) rosuvastatin tablet 5 mg (Crestor) 5 mg, oral, Every other day, First dose on Wed06/21/24 at 2100 sodium chloride 0.9 % injection 3 mL 3 mL, intravenous, Every 12 hours scheduled, First dose on Wed06/20/24 at 0900, Peripheral Intravenous Catheter and Rapid Infusion Catheter, when no infusion to maintain patency 0956 (Not Given - Provider: Jennifer Barron R.N. - Reason: Order parameters not met)1623 (DEC Hold - Provider: Transfer Provider, Automatic - Reason: Patient not available)1817 (DEC Unhold - Provider: Transfer Provider, Automatic)2133 (Given - Provider: Janina Corea R.N.) 0837 (Not Given - Provider: Donavan Jones RQuyenNQuyen - Reason: Other - Comment: Fluids infusing) Continuous Medication Order 06/19/2024 06/20/2024 06/21/2024 heparin (porcine) 100 Units/mL in NaCl 0.45% 250 mL infusion (CANCELED) 0-30 Units/kg/hr ? 64.6 kg Dosing weight (0-19.38 mL/hr), intravenous, Continuous, Starting on Wed06/19/24 at 2330, 25,000 Units in 250 mL, Intensity type: Moderate, Starting Dose (units/kg/hr): 12, Anti-Xa < 0.1: Adjust Dose (Units/kg/hr) by: 4, Anti-Xa < 0.1: Loading Dose (Units/kg): 60, Anti-Xa < 0.1: Repeat anti-Xa: 6 hours, Anti-Xa 0.1-0.19: Adjust Dose (Units/kg/hr) by: 2, Anti-Xa 0.1-0.19: Loading Dose (Units/kg): 30, Anti-Xa 0.1-0.19: Repeat anti-Xa: 6 hours, Anti-Xa 0.2-0.5: Adjust Dose (Units/kg/hr) by: 0, Anti-Xa 0.2-0.5: Repeat anti-Xa: 6 hours. If two consecutive therapeutic result, re-check next AM., Anti-Xa > 0.19: Loading Dose (Units/kg): 0, Anti-Xa 0.51-0.6: Adjust Dose (Units/kg/hr) by: -1, Anti-Xa 0.51-0.6: Repeat anti-Xa: 6 hours, Anti-Xa 0.61-0.9: Hold Infusion: Stop infusion for 1 hour, Anti-Xa 0.61-0.9: Adjust Dose (Units/kg/hr) by: -2, Anti-Xa 0.61-0.9: Repeat anti-Xa: 6 hours after Heparin resumed, Anti-Xa 0.91-1.5: Hold Infusion: Stop infusion for 2 hours, Anti-Xa 0.91-1.5: Adjust Dose (Units/kg/hr) by: -4, Anti-Xa 0.91-1.5: Repeat anti-Xa: 6 hours after Heparin resumed, Anti-Xa > 1.5: Hold Infusion: Stop infusion until anti-Xa < 1.2, Anti-Xa > 1.5: Adjust Dose (Units/kg/hr) by: -4, Anti-Xa > 1.5: Repeat anti-Xa: every 2 hours until anti-Xa less than 1.2 2349 (New Bag - Provider: Janina Corea RQuyenNQuyen) 0127 (Rate/Dose Verify - Provider: Janina Corea RQuyenNQuyen)0138 (Rate/Dose Change - Provider: Janina Corea RQuyenNQuyen)0700 (Rate/Dose Verify - Provider: Jennifer Barron RQuyenN.)0953 (Rate/Dose Change - Provider: Jennifer Barron RQuyenNQuyen)1500 (Rate/Dose Verify - Provider: Tasha Mason RQuyenNQuyen) heparin (porcine) 100 Units/mL in NaCl 0.45% 250 mL infusion (CANCELED) 0-30 Units/kg/hr ? 64.6 kg Dosing weight (0-19.38 mL/hr), intravenous, Continuous, Starting on Wed06/20/24 at 2130, 25,000 Units in 250 mL, Intensity type: Moderate, Starting Dose (units/kg/hr): 12, Anti-Xa < 0.1: Adjust Dose (Units/kg/hr) by: 4, Anti-Xa < 0.1: Loading Dose (Units/kg): 60, Anti-Xa < 0.1: Repeat anti-Xa: 6 hours, Anti-Xa 0.1-0.19: Adjust Dose (Units/kg/hr) by: 2, Anti-Xa 0.1-0.19: Loading Dose (Units/kg): 30, Anti-Xa 0.1-0.19: Repeat anti-Xa: 6 hours, Anti-Xa 0.2-0.5: Adjust Dose (Units/kg/hr) by: 0, Anti-Xa 0.2-0.5: Repeat anti-Xa: 6 hours. If two consecutive therapeutic result, re-check next AM., Anti-Xa > 0.19: Loading Dose (Units/kg): 0, Anti-Xa 0.51-0.6: Adjust Dose (Units/kg/hr) by: -1, Anti-Xa 0.51-0.6: Repeat anti-Xa: 6 hours, Anti-Xa 0.61-0.9: Hold Infusion: Stop infusion for 1 hour, Anti-Xa 0.61-0.9: Adjust Dose (Units/kg/hr) by: -2, Anti-Xa 0.61-0.9: Repeat anti-Xa: 6 hours after Heparin resumed, Anti-Xa 0.91-1.5: Hold Infusion: Stop infusion for 2 hours, Anti-Xa 0.91-1.5: Adjust Dose (Units/kg/hr) by: -4, Anti-Xa 0.91-1.5: Repeat anti-Xa: 6 hours after Heparin resumed, Anti-Xa > 1.5: Hold Infusion: Stop infusion until anti-Xa < 1.2, Anti-Xa > 1.5: Adjust Dose (Units/kg/hr) by: -4, Anti-Xa > 1.5: Repeat anti-Xa: every 2 hours until anti-Xa less than 1.2 2131 (Restarted - Provider: Janina Corea RQuyenN.) 1132 (Stopped - Provider: Donavan Jones R.N.) PRN Medication Order 06/19/2024 06/20/2024 06/21/2024 acetaminophen tablet 1,000 mg (TylenoL) 1,000 mg, oral, Every 6 hours PRN, mild pain or score 1-3 of 10, fever, Notify sevice prior to first administration for fever, Starting on Wed06/20/24 at 0230 0908 (Given - Provider: Jennifer Barron RQuyenNQuyen)1623 ([facility] Hold - Provider: Transfer Provider, Automatic - Reason: Patient not available)181 ([facility] Unhold - Provider: Transfer Provider, Automatic) bisacodyL DR tablet 10 mg (Dulcolax) 10 mg, oral, Daily PRN, constipation, Starting on Wed06/19/24 at 2331, PO route preferred. Constipation unrelieved by docusate sodium (COLACE) if ordered. If results needed within 2 hours give rectal suppository if ordered. Swallow whole. Do NOT crush, chew, or split tablet. 1623 ([facility] Hold - Provider: Transfer Provider, Automatic - Reason: Patient not available)181 ([facility] Unhold - Provider: Transfer Provider, Automatic) calcium carbonate chewable tablet 400 mg of calcium (Tums) 400 mg of calcium, oral, Every 2 hour PRN, indigestion, Not to exceed 12 tablets in 24 hours, Starting on Wed06/19/24 at 2331, Doses listed are in mg of elemental calcium. Take with food. 500 mg calcium carbonate contains 200 mg of elemental calcium. 1623 ([facility] Hold - Provider: Transfer Provider, Automatic - Reason: Patient not available)181 ([facility] Unhold - Provider: Transfer Provider, Automatic) fentaNYL injection 25 mcg (Sublimaze) (CANCELED) 25 mcg, intravenous, Every 2 min PRN, sedation, Administer over 1 minute immediately prior to the procedure. May repeat every 2 minutes to a maximum of 200 mcg, until pain score of 3 or less, or until the patient meets the pain comfort goal. or RASS 0 to -2. Do not give if respiratory rate is less than 8 breaths/minute, Starting on Wed06/20/24 at 1646, Intraprocedure (CV), Subsequent doses 1651 (Given - Provider: Alcira Manzano R.N.) heparin (porcine) 1,000 unit/mL injection (CANCELED) Code/trauma/sedation medication, Starting on Wed06/20/24 at 1708, Intraprocedure (CV) 1708 (Given - Provider: Alcira Manzano R.N.) iohexoL 350 mg iodine/mL solution (Omnipaque) (CANCELED) Code/trauma/sedation medication, Starting on Wed06/20/24 at 1717, Intraprocedure (CV) 1717 (Given - Provider: Alex Tam M.D.) lidocaine 10 mg/mL (1 %) injection (Xylocaine) (CANCELED) Code/trauma/sedation medication, Starting on Wed06/20/24 at 1703, Intraprocedure (CV) 1703 (Given - Provider: Alex Tam M.D.) midazolam (PF) injection 0.25 mg (Versed) (CANCELED) 0.25 mg, intravenous, Every 2 min PRN, sedation, RASS -2, Starting on Wed06/20/24 at 1646, Intraprocedure (CV), May repeat every 2 minutes to a maximum of 5 mg. Do not give if respiratory rate is less than 8 breaths/minute. 1651 (Given - Provider: Alcira Manzano R.N.)1705 (Given - Provider: Alcira Manzano R.N.) nitroglycerin SL tablet 0.4 mg (Nitrostat) 0.4 mg, sublingual, Every 5 min PRN, chest pain, Starting on Wed06/19/24 at 2331, Notify prescriber if pain unrelieved after 2 doses.Do not administer in patients with severe aortic stenosis, pulmonary arterial hypertension, obstructive hypertrophic cardiomyopathy, or those undergoing a coronary artery spasms study. Do not administer for patients on phosphodiesterace-5 (PDE5) inhibitors (e.g. sildenafil (VIAGRA, REVATIO), tadalafil (CIALIS, ADCIRCA), vardenafil (Levitra), avanafil (STENDRA) or soluble guanylate cyclase inhibitors [e.g. riociguat (ADEMPAS)] Dissolve under the tongue. Do NOT crush, chew, split or swallow tablet., Indications: angina 1623 ([facility] Hold - Provider: Transfer Provider, Automatic - Reason: Patient not available)181 ([facility] Unhold - Provider: Transfer Provider, Automatic) perflutren lipid microspheres injection (Definity) (COMPLETED) intravenous, Once in imaging, contrast, Starting on Wed06/20/24 at 1240, For 1 dose, Intraprocedure - Diagnostic, See protocol. 1242 (Given - Provider: Camilla Elizabeth R.D.C.S.) sodium chloride 0.9 % injection 10 mL 10 mL, intravenous, As needed, line care, Starting on Wed06/19/24 at 2330, Peripheral Intravenous Catheter and Rapid Infusion Catheter, prior to blood sampling, post blood transfusion or post blood sampling 1623 ([facility] Hold - Provider: Transfer Provider, Automatic - Reason: Patient not available)181 ([facility] Unhold - Provider: Transfer Provider, Automatic) sodium chloride 0.9 % injection 10 mL (CANCELED) 10 mL, intravenous, As needed, line care, Starting on Wed06/20/24 at 1240, Intraprocedure - Diagnostic, Prior to and following infusion and between multiple consecutive infusions: sodium chloride 0.9 % injection 1243 (Given - Provider: Camilla Elizabeth R.D.C.S.)1623 ([facility] Hold - Provider: Transfer Provider, Automatic - Reason: Patient not available)1816 ([facility] Unhold - Provider: Transfer Provider, Automatic) sodium chloride 0.9 % injection 3 mL 3 mL, intravenous, As needed, line care, Starting on Wed06/19/24 at 2330, Prior to and following infusion and between multiple consecutive infusions: sodium chloride 0.9 % injection 1623 ([facility] Hold - Provider: Transfer Provider, Automatic - Reason: Patient not available)1816 ([facility] Unhold - Provider: Transfer Provider, Automatic) traZODone tablet 25 mg (DesyreL) 25 mg, oral, Bedtime PRN, sleep, Starting on Wed06/20/24 at 0010 0026 (Given - Provider: Janina Corea, R.N.)162 ([facility] Hold - Provider: Transfer Provider, Automatic - Reason: Patient not available)181 ([facility] Unhold - Provider: Transfer Provider, Automatic)2057 (Given - Provider: Janina Corea, R.N.) documented in this encounter Additional Health Concerns Assessment Noted Time PHQ-9 Depression Total Score: 0 01/10/20 20 2:42 PM CDT documented as of this encounter Care Teams Director Global Development Relationship Specialty Start Date End Date Elsewhere, Pcp PCP - General Internal Medicine 03/05/23 documented as of this encounter
--- OUTSIDE RECORDS SUMMARY | 2024-07-05 12:53 | XMS_ITS | Encounter Summary ---
Author Organization [facility] Address [address] [place] [address] Care Team Providers Care Fruit And Vegetable Parer Name Role Phone Elsewhere, Pcp Primary Care Provider Unavailabl e Encounter Details Date Type Department Care Team (Latest Contact Info) Description 06/21/2024 Clinical Communication Department of Cardiovascular Diseases in [place], [place] [address] [place] [phone] Gracy Wynn, MAGNETIC RESONANCE IMAGING DIRECTOR, C.N.P. [address] [place] [phone] Social History Tobacco Use Types Packs/Day Years Used Date Smoking Tobacco: Former Cigarettes 0.5 21 Smokeless Tobacco: Never Comments:quit 25+ years ago Alcohol Use Standard Drinks/Week Comments Yes 2 (1 standard drink = 0.6 oz pur e alcohol) [facility] Utilities Answer Date Recorded In the past 12 months has [facility], oil, or water [employer] threatened to shut off services in your [...] than three times a week 07/10/2019 Attends [employer] Patient declined 06/25 Active Member of [...] Answer Date Recorded PHQ-2 Score 0 [facility]/10/2020 [facility] Questionnaire Answer Date Recorded [...] money to buy more. Never true 06/19/20 24 Within the past 12 months, t he [...] living situation today? I have a [facility] place to live 06/19/2024 Education Answer Date Recorded What is the highest level of school you have completed or the highest degree you have received? Associate degree: academic program 07/10/2019 Sex and Gender Information Value Date Recorded Sex Assigned at Female 09/26/2018 7:57 PM LETTUCE TRIMMER Gender Identity Female 09/26/2018 7:57 PM LETTUCE TRIMMER Sexual Orientation Straight 09/26/2018 7: 57 PM LETTUCE TRIMMER documented as of this encounter Miscellaneous Notes * Telephone Encounter - Pratibha Isabel - 06/21/2024 2:41 PM CDT Patient scheduled for echo on 07-18 and then with Светлана on 07-20 (per patient request) * Telephone Encounter - Hannah Sloan R.N. - 06/21/2024 1:59 PM CDT Referral reason: NSTEMI-Angiogram in [place] showed normal coronaries. Cardiomyopathy. Referral for ongoing management and medication titration Has this patient seen Cards: Yes in [place] Testing completed: Echo and Angiogram 06/20/2024, EKG 06/19/2024 Primary care provider: None Referring provider/clinic: Gracy Wynn APRN, CNP ([facility]VD [place]) Scheduling please schedule PALMA or MD at the end of June documented in this encounter Plan of Treatment Upcoming Encounters Date Type Department Care Team (Latest Contact Info) Description 07/18/2024 8:00 AM CDT Appointment Department of Cardiac Rehabilitation in [place] [address] [place] [address] Fredrick Gutierrez M.D. [address] [place] [address] 07/18/2024 12:20 PM CDT Appointment Department of Cardiovascular Diseases in [place], [place] [address] [place] [phone] Gracy Wynn APRN, C.N.P. [address] [place] [phone] 07/20/2024 3:00 PM CDT Comprehensive Visit Department of Cardiovascular Diseases in [place] [id number] [place] [phone] Malou Mckenzie APRN, C.N.P. [address] [place] [phone] Discharge Disposition: Home or Self Care documented as of this encounter Visit Diagnoses Not on filedocumented in this encounter Additional Health Concerns Assessment Noted Time PHQ-9 Depression Total Score: 0 01/10/20 20 2:42 PM CDT documented as of this encounter Care Teams Fruit And Vegetable Parer Relationship Specialty Start Date End Date Elsewhere, Pcp PCP - General Internal Medicine 03/05/23 documented as of this encounter
--- OUTSIDE RECORDS SUMMARY | 2024-07-05 12:53 | XMS_ITS | Encounter Summary ---
Author Organization [facility] Address [address] [place] [address] Care Team Providers Care Operating Cost Clerk Name Role Phone Elsewhere, Pcp Primary Care Provider Unavailabl e Reason for Referral * Cardiovascular-Diagnostic (Routine) - Authorized Specialty Diagnoses / Procedures Referred By Contac t Referred To Contact Diagnoses Thrombus Ventricular Left Procedures Echo Transthoracic (TTE) Gracy Wynn APRN, C.N.P. [address] [place] [phone] [facility] Region Referral ID Status Reason Start Date Expiration Date V isits Requested Visits Authorized [id number] Authorized 06/21/2024 06/21/2025 1 1 * Outpatient (Routine) - Authorized Specialty Diagnoses / Procedures Referred By Contac t Referred To Contact Diagnoses Non-ST Elevation Myocardial Infarction (HCC) Thrombus Ventricular Left Procedures ECG 12 Lead Gracy Wynn APRN, C.N.P. [address] [place] [address] [phone] [facility] Region Referral ID Status Reason Start Date Expiration Date V isits Requested Visits Authorized [id number] Authorized 06/21/2024 06/21/2025 1 1 * Outpatient (Routine) - Authorized Specialty Diagnoses / Procedures Referred By Contac t Referred To Contact Cardiovascular Diseases / Cardiovascular Disease Diagnoses Non-ST Elevation Myocardial Infarction (HCC) Thrombus Ventricular Left Gracy Wynn APRN, C.N.P. [address] [place] [phone] [facility] Region Referral ID Status Reason Start Date Expiration Date V isits Requested Visits Authorized [id number] Authorized 06/21/2024 12/21/2025 1 1 Encounter Details Date Type Department Care Team (Latest Contact Info) Description 06/21/2024 Clinical Communication Department of Cardiovascular Medicine in [place], [place] [address] [place] [phone] Gracy Wynn APRN, C.N.P. [address] [place] [phone] Social History Tobacco Use Types Packs/Day Years Used Date Smoking Tobacco: Former Cigarettes 0.5 21 Smokeless Tobacco: Never Comments:quit 25+ years ago Alcohol Use Standard Drinks/Week Comments Yes 2 (1 standard drink = 0.6 oz pur e alcohol) [facility] Utilities Answer Date Recorded In the past 12 months has e [employer], gas, oil, or water [employer] threatened to shut off services in your [...] than three times a week 07/10/2019 Attends [employer] Patient declined 06/25 Active Member of [...] Answer Date Recorded PHQ-2 Score 0 01/10/2020 [facility] - Occupational Stress Questionnaire Answer Date [...] your living situation today? I have a [facility] place to live 06/19/2024 Education Answer Date Recorded What is the highest level of school you have completed or the highest degree you have received? Associate degree: academic program 07/10/2019 Sex and Gender Information Value Date Recorded Sex Assigned at Female 09/26/2018 7:57 PM PULLER OVER Gender Identity Female 09/26/2018 7:57 PM PULLER OVER Sexual Orientation Straight 09/26/2018 7: 57 PM PULLER OVER documented as of this encounter Plan of Treatment Upcoming Encounters Date Type Department Care Team (Latest Contact Info) Description 07/18/2024 8:00 AM CDT Appointment Department of Cardiac Rehabilitation in [place], [place] [address] [place] [phone] Fredrick Gutierrez M.D. [address] [place] [phone] 07/18/2024 12:20 PM CDT Appointment Department of Cardiovascular Diseases in [address] [phone] Gracy Wynn, ANGELA, C.N.P. [address] [place] [phone] 07/20/2024 3:00 PM CDT Comprehensive Visit Department of Cardiovascular Diseases in [place], [place] [address] [place] [phone] Malou Mckenzie APRN, C.N.P. [address] [place] [phone] Discharge Disposition: Home or Self Care Scheduled Orders Name Type Priority Associated Diagnoses Orde r Schedule ECG 12 Lead ECG Routine Non-ST Elevation Myocardial Infarction (HCC) Thrombus Ventricular Left Expected: 07/22/2024, Expires: 09/21/2025 Echo Transthoracic (TTE) Echocardiography Routine Thrombus Ventricular Left Expected: 07/22/2024, Expires: 09/21/2025 Scheduled Referrals Name Type Priority Associated Diagnoses Order Schedule Cardiovascular Disease - General cardiology consult (clinic) Outpatient Referral Routine Non-ST Elevation Myocardial Infarction (HCC) Thrombus Ventricular Left Expected: 07/22/2024, Expires: 09/21/2025 documented as of this encounter Visit Diagnoses Diagnosis Non-ST Elevation Myocardial Infarction (HCC)- Primary Thrombus Ventricular Left documented in this encounter Additional Health Concerns Assessment Noted Time PHQ-9 Depression Total Score: 0 01/10/20 20 2:42 PM CDT documented as of this encounter Care Teams Operating Cost Clerk Relationship Specialty Start Date End Date Elsewhere, Pcp PCP - General Internal Medicine 03/05/23 documented as of this encounter
--- OUTSIDE RECORDS SUMMARY | 2024-07-05 12:53 | XMS_ITS | Encounter Summary ---
Author Organization [facility] Address [address] [place] [address] Care Team Providers Care Venetian Blind Maker Name Role Phone Elsewhere, Pcp Primary Care Provider Unavailabl e Reason for Visit * Reason Onset Date Comments Cardiac Rehab 06/30/2024 Initial contact Encounter Details Date Type Department Care Team (Latest Contact Info) Description 06/30/2024 Clinical Communication Department of Cardiac Rehabilitation in [place], [place] [address] [place] [phone] Devin Murray, [facility] Cardiac Rehab (Initial contact) Social History Tobacco Use Types Packs/Day Years Used Date Smoking Tobacco: Former Cigarettes 0.5 21 Smokeless Tobacco: Never Comments:quit 25+ years ago Alcohol Use Standard Drinks/Week Comments Yes 2 (1 standard drink = 0.6 oz pur e alcohol) [facility] Utilities Answer Date Recorded In the past 12 months has [facility] [employer], gas, oil, or water [employer] threatened to shut off services in your [...] than three times a week 07/10/2019 Attends [employer] Patient declined 06/25 Active Member of [...] Answer Date Recorded PHQ-2 Score 0 01/10/2020 [facility] - Occupational Stress Questionnaire Answer Date [...] your living situation today? I have a [facility] place to live 06/19/2024 Education Answer Date [...] PRODUCT MANAGER documented as of this encounter Miscellaneous Notes * Telephone Encounter - Devin Murray CEP - 06/30/2024 2:38 PM CDT Patient was contacted to discuss cardiac rehab and schedule orientation. The program and benefits were explained. Patient is scheduled for initial in person intake on 07/18/24 at 0800. documented in this encounter Plan of Treatment Upcoming Encounters Date Type Department Care Team (Latest Contact Info) Description 07/18/2024 8:00 AM CDT Appointment Department of Cardiac Rehabilitation in [place], [place] [address] [place] [phone] Fredrick Gutierrez M.D. [address] [place] [phone] 07/18/2024 12:20 PM CDT Appointment Department of Cardiovascular Diseases in [place], [place] [address] [place] [phone] Gracy Wynn, ANGELA, C.N.P. [address] [place] [phone] 07/20/2024 3:00 PM CDT Comprehensive Visit Department of Cardiovascular Diseases in [place], [place] [address] [place] [phone] Malou Mckenzie, ANGELA, C.N.P. [address] [place] [phone] Discharge Disposition: Home or Self Care documented as of this encounter Visit Diagnoses Not on filedocumented in this encounter Additional Health Concerns Assessment Noted Time PHQ-9 Depression Total Score: 0 01/10/20 20 2:42 PM CDT documented as of this encounter Care Teams Venetian Blind Maker Relationship Specialty Start Date End Date Elsewhere, Pcp PCP - General Internal Medicine 03/05/23 documented as of this encounter
--- OUTSIDE RECORDS SUMMARY | 2024-07-05 12:53 | XMS_ITS ---
Author Organization [facility] Address [address] [place] [address] Care Team Providers Care Lump Maker Name Role Phone Unavailable Unavailable Unavailable Surgery Details Not on file Complications Check Surgery Details section. Procedure Estimated Blood Loss Check Surgery Details section. Procedure Findings Check Surgery Details section. Procedure Specimens Taken Check Surgery Details section.
--- OUTSIDE RECORDS SUMMARY | 2024-07-05 12:53 | XMS_ITS | Encounter Summary ---
Author Organization [facility] Address [address] [place] [address] Care Team Providers Care Postbed Stitcher Name Role Phone Elsewhere, Pcp Primary Care Provider Unavailabl e Reason for Visit * Auth/Cert (Routine) Specialty Diagnoses / Procedures Referred By Contac t Referred To Contact Diagnoses Non-ST Elevation Myocardial Infarction (HCC) Chest pain Procedures DIR Referral ID Status Reason Start Date Expiration Date Visits Re quested Visits Authorized [id number] 1 1 Encounter Details Date Type Department Care Team (Late st Contact Info) Description 06/20/2024 3:56 PM CDT - 06/20/2024 5:11 PM CDT Surgery Division of Cardiovascular Diseases in [place], [place] [address] [place] [phone] Alex Tam M.D. [address] [place] [phone] Coronary Angiography Social History Tobacco Use Types Packs/Day Years Used Date Smoking Tobacco: Former Cigarettes 0.5 21 Smokeless Tobacco: Never Tobacco Cessation:Counseling Given: Not Answered Comments:quit 25+ years ago Alcohol Use Standard Drinks/Week Comments Yes 2 (1 standard drink = 0.6 oz pur e alcohol) [facility] Utilities Answer Date Recorded In the past 12 months has th e electric, gas, oil, or water company [...] than three times a week 07/10/2019 Attends [employer] Patient declined 06/25 Active Member of [...] Answer Date Recorded PHQ-2 Score 0 01/10/2020 [facility] - Occupational Stress Questionnaire Answer Date [...] your living situation today? I have a [facility] place to live 06/19/2024 Education Answer Date Recorded What is the highest level of school you have completed or the highest degree you have received? Associate degree: academic program 07/10/2019 Sex and Gender Information Value Date Recorded Sex Assigned at Female 09/26/2018 7:57 PM MACHINE ATTENDANT Gender Identity Female 09/26/2018 7:57 PM MACHINE ATTENDANT Sexual Orientation Straight 09/26/2018 7: 57 PM MACHINE ATTENDANT documented as of this encounter Last Filed Vital Signs Vital Sign Reading Time Taken Comments Blood Pressure 93/69 06/20/2024 5:10 PM CDT Pulse 71 06/20/2024 5:10 PM CDT Temperature 36.7 ??C (98 ??F) 06/20/2024 3:15 PM CDT Respiratory Rate 12 06/20/2024 3:15 PM CDT Oxygen Saturation 95% 06/20/2024 5:10 PM CDT Inhaled Oxygen Concentration - - Weight 63.3 kg (139 lb 8.8 oz) 06/20/2024 8:03 A M CDT Height 165.1 cm (5' 5) 06/19/2024 [...] APPOINTMENTS Scheduled Appointments 07/18/2024 12:20 PM [facility]CHO [facility] 02 Cardiovascular Disease 07/20/2024 3:00 PM Malou Mckenzie APRN, C.N.P. Cardiovascular Disease For appointment details refer to your Patient Appointment Guide. HOSPITAL COURSE Admission Weight: 64.6 kg Dismissal Weight: 64 kg BMI: Body mass index is 23.48 kg/m??. Mrs. Ceballos is a 68 y.o. female who presented to the [facility] for evaluation of exertional chest discomfort [...] to demonstrate similar findings. Dr. Underwood, CICU marine consultant, was curbsided and felt EKG did not meet STEMI criteria but given rising troponins patient was aspirin loaded, started on IV heparin, and transferred to [facility] Cardiology PCU for management on NSTEMI. On [...] left ventricular thrombus. Moderate mitral valve regurgitation. Wtar-pv-eqmjulkz tricuspid valve regurgitation. Estimated RVSP 21 mm [...] ON DISCHARGE: Stable. PRIMARY PROVIDER No care team manager to display Primary Care Providers: Elsewhere, Pcp [...] through Care Everywhere. * Aspirin (By mouth) (Taiwanese) * Losartan (By mouth) (Taiwanese) * Metoprolol (By mouth) (Taiwanese) * Rosuvastatin (By mouth) (Taiwanese) documented in this encounter Medications at Time [...] as needed for sleep. 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 Plan to initiate rosuvastatin 5 mg every other day may consider a PCSK9 inhibitor. Soniya Villanueva Pharm.D., R.Ph. * Gracy Wynn, ANGELA, C.N.P. - 06/21/2024 7:50 AM CDT 1 [...] a 68 y.o. female who presented to [facility] for 2 weeks of exertional neck [...] and continued to demonstrate similar findings. CICU marine consultant was curbsided and felt EKG did not meet STEMI criteria but given rising troponins patient was aspirin loaded, started on IV heparin, [facility]. Patient [...] left ventricular thrombus. Moderate mitral valve regurgitation. Rlst-tb-cighxiei tricuspid valve regurgitation. Estimated RVSP 21 mm [...] could consider discharge later today. ADDENDUM @ 4257: Patient has had an overall great day. [...] DISPOSITION: Home self-care. Gracy Wynn APRN, C.N.P. 06/21/24 MARGIN CODE Total time: 60 min, Counseling Time: Greater than 50%. * Clarice Villanueva, Pharm.D., R.Ph. - 06/20/2024 12:08 PM CDT Pharmacist Progress Note Reason for admission: NSTEMI PMH: HLD, GERD, Migraines, Polyarthralgia, RLS,Depression, Past Medical History: Diagnosis Date Depressive Disorder Take Fluoxetine 10 mg daily Dry Eye Syndrome Bilateral Gastroesophageal Reflux Disease NOS Taking Prilosec 40 mg daily Headache Unspecified Hyperlipidemia taking Lovastatin 10 mg daily Migraine Headache ocular migraine, take Xagike-lvpfblwh-txyw Other Injury Of Unspecified Body Region Fx [...] day, ezetimibe, or a PSK9 inhibitor. Soniya Villanueva, D., R.Ph. * Gracy Wynn, ANGELA, C.N.P. - 06/20/2024 8:10 AM CDT 1 [...] a 68 y.o. female who presented to [facility] for 2 weeks of exertional neck [...] and continued to demonstrate similar findings. CICU marine consultant was curbsided and felt EKG did not meet STEMI criteria but given rising troponins patient was aspirin loaded, started on IV heparin, and [facility]I. Patient was admitted to inpatient Cardiology Service. She arrived to PCU floor in stable condition and pain free. Repeat electrocardiogram showed similar ST changes, again reviewed with CICU marine consultant. Patient was continued on IV heparin [...] overall structure of the heart. ADDENDUM @ 1445: TTE revealed normal LV with calculated EF 37%. 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 Perfusion of LV apex reduced. Possible apical left ventricular thrombus. Moderate mitral valve regurgitation. Cxky-ef-gltkcgox tricuspid valve regurgitation. Estimated RVSP 21 mm Hg. Normal RV systolic function. DVT PROPHYLAXIS: Heparin infusion. GI PROPHYLAXIS: Protonix (formulary exchange for omeprazole). DISPOSITION: Home self-care. Gracy Wynn APRN, C.N.P. 06/20/24 MARGIN CODE Total time: 60 min, Counseling Time: Greater than 50%. * Krissy Desai, R.N. - 06/20/2024 7:31 AM CDT Proactive [...] meal metoprolol tartrate, 12.5 mg, oral, BID nbjqrzmx-vwgimbiah-ermwabhevwval, 1 drop, left eye, 4x Daily pantoprazole, [...] (porcine) nitroglycerin sodium chloride sodium chloride traZODone [place] Suicide Severity Rating Scale (C-SSRS) - Short Version Based on screening, we have the following recommendations: [] general farm manager visit [x] Discuss with primary team [...] education/support-primary team to place order [] Recommend [employer] consultation- primary nursing to place order [] Recommend social work/substance use consultation -primary team to place order [] Recommend outpatient psychiatric follow-up - primary team to place psychiatric consult order to coordinate [] No acute psychiatric intervention needed; please reach out if questions or concerns. [] Other [place] [phone] with questions. Krissy Desai R.N. 06/20/2024 Associated [...] physician: Kb Underwood M.D., Ph.D. Admitting service: [facility] CVD Admit/Triage Hospital HISTORY OF PRESENT ILLNESS Ms. Ceballos is a 68 y.o. female who presented to [facility] ED for 2 weeks of intermittent chest discomfort with exertion, dyspnea, and diaphoresis found to have an NSTEMI. She is being admitted to the [facility] CVD Admit/Triage Hospital service. 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 , intermittent dizziness, [...] started on IV heparin and transferred to [facility] Cardiology PCU for further management. On arrival [...] Take 1 tablet by mouth daily., 06/19/2024 jhjoqgte-cxylyfawm-wvyhkgnhjbzbw (Maxitrol) 3.5mg/mL-10,000 unit/mL-0.1 % ophthalmic suspension, Administer [...] of Onset DESIREE disease Brother Aneurysm Father Sudheeryovani Costa Stroke Father Sudheer Costa Diabetes Father Sudheer Costa Hypertension Father Sudheer Costa Hyperlipidemia Father Sudheer Costa Heart failure Father Sudheer Costa Skin cancer Father Sudheer Costa Dementia Father Sudheer Costa Parkinsons disease Father Sudheer Costa Kidney failure Father Sudheer Costa Peripheral vascular disease Father Sudheer Costa Cataracts Father Sudheer Costa Parkinsonism Father Sudheer Costa Alcohol abuse Father Sudheer Costa Hypertension Mother Kym Costa Anxiety disorder Mother Kym Costa Breast cancer Mother Kym Costa 86 Diagnosed at 87 Cataracts Mother Kym [place] Depression Mother Kym [place] Heart disease Uncle maternal Thyroid disease Sister Tish Garzon Breast cancer Sister Tish Garzon diagnosed with Her2 positive Hypertension Sister Tish Garzon Thyroid disease Maternal Grandmother Alpha Walk Heart disease Paternal Grandfather Thyroid disease Sister Nicolasa Elizabeth Rheum arthritis Sister Nicolasa Elizabeth Rheum arthritis Paternal Grandmother Cecilia Costa OBJECTIVE VITAL SIGNS: Temperature: [36.5 ??C-36.9 ??C] [...] a 68 y.o. female who presented to [facility] for 2 weeks of exertional chest [...] to demonstrate similar findings. Dr. Underwood, CICU marine consultant, was curbsided and felt EKG did not meet STEMI criteria but given rising troponins patient was aspirin loaded, started on IV heparin, and transferred to [facility] Cardiology PCU for management on NSTEMI. On [...] Home - self care Henrietta Conroy P.A.-C., #[id number] 06/19/24 I personally spent a total of [...] attending a cardiac rehabilitation program. 2. Eligibility: [place] 3. Exceptions/exclusions: None. 4. Referral: Patient agreed with referral to a cardiac rehabilitation program. Please see dischargeorder and/or letter for program details. 5. Appropriate referral information will be sent to the receiving cardiac rehabilitation program asalicable. Patient provided verbal authorization to send relevant materials to the cardiac rehab program. Patient referred to: [facility] [address] [facility] [place] [address] Recommend that the patient check with insurance company to verify coverage of the cost of cardiac rehabilitation program visits. documented in this encounter Nursing Notes * Donavan Jones R.N. - 06/21/2024 4:42 PM CDT Shift [...] 68 y.o. female who presented to the [facility] for evaluation of exertional chest discomfort [...] to demonstrate similar findings. Dr. Underwood, CICU marine consultant, was curbsided and felt EKG did not meet STEMI criteria but given rising troponins patient was aspirin loaded, started on IV heparin, and transferred to [facility] Cardiology PCU for management on NSTEMI. On [...] left ventricular thrombus. Moderate mitral valve regurgitation. Ufql-pj-awkryfex tricuspid valve regurgitation. Estimated RVSP 21 mm [...] CDT Appointment Department of Cardiac Rehabilitation in [place], [place] [address] [place] [address] Fredrick Gutierrez M.D. [address] [place] [phone] 07/18/2024 12:20 PM CDT Appointment Department of Cardiovascular Diseases in [place], [place] [address] [place] [phone] Gracy Wynn APRN, C.N.P. [address] [place] [phone] 07/20/2024 3:00 PM CDT Comprehensive Visit Department of Cardiovascular Diseases in [place] [id number] [place] [phone] Malou Mckenzie APRN, C.N.P. [address] [place] [phone] Discharge Disposition: Home or Self Care Scheduled [...] Rich Duff P.A.-C., M.S. LAB BLOOD ADD-ON [facility] [address] [place] [address], [facility] 200 [place] [address] * Basic Metabolic Panel (06/21/2024 7:57 AM CDT) Pathologist [facility] Potassium, S 4.8 3.6 - 5.2 mmol/L [...] CDT 06/21/2024 9:00 AM CDT Gracy Wynn APRN C.N.P. [place] [address], [facility] [address] [place] [address] * Heparin Anti-Xa Assay (06/21/2024 7:56 AM CDT) Pathologist [facility] Heparin Anti-Xa, P 0.46 IU/mL 2023 9:45 [...] 7:56 AM CDT 06/21/2024 8:49 AM CDT Charan Blake APRNN.PQuyen LAB BLOOD NO N ADD-ON Performing Organization Address [facility] Co de Phone Number [facility] [address] [place] [address] * (ABNORMAL) CRP (C-Reactive Protein) (06/21/2024 7:54 AM CDT) C-Reactive Protein (CRP), S 8.7(H) <5.0 mg/L 06/21/2024 10:50 AM CDT DTL Blood (Blood, Venous) 06/21/2024 7:54 AM CDT 06/21/2024 10:22 AM CDT Charan Blake APRNN.P. LAB BLOOD AD D-ON Performing Organization Address [facility] Co de Phone Number [facility] [address] [place] [address] * CORONARY ANGIOGRAPHY (06/20/2024 5:21 PM CDT) [...] MC CV EIMS LA Volume Index 24 [facility] Anatomical Region Laterality Modality Echocardiography 06/20/2024 10:5 [...] per Echocardiography Contrast Administration Protocol Reference Document [id number] Rev 02/05/2022. Patient met an inclusion criterion [...] 15. Emergency communication to Gracy Wynn APRN, FERMENTER WINE at 13:25 hours, 20 June, ??regarding the critical echocardiography results was completed and acknowledged. Procedure Note Jefferson Hurtado M.D. - 06/20/2024 For the complete report, see the Order-Level Documents. Hemodynamics Heart Rate: 61 BPM Blood Pressure: 104 / 81 mmHg ECG: Sinus rhythm Final Impressions 1. Normal left ventricular chamber size. 2. Calculated 2-D monoplane volumetric left ventricular ejection sevcvbwx59%. 3. Regional wall motion abnormalities were present [...] administered per EchocardiographyContrast Administration Protocol Reference Document [id number] Rev02/05/2022. Patient met an inclusion criterion and did not havecontraindications in screening sections. For the complete report, see the Order-Level Documents. Henrietta Conroy P.A.-C. CV ECHO PROCEDURES * Heparin Anti-Xa Assay (06/20/2024 7:43 AM CDT) [facility] Heparin Anti-Xa, P 0.44 IU/mL 2023 8:45 [...] Conroy P.A.-C. LAB BLOOD NON ADD-O N [facility] [address] [place] [address], [facility] DTL [facility] [address] [place] [address] * Magnesium (06/20/2024 7:43 AM CDT) Magnesium, S 2.1 1.7 - 2.3 mg/dL 06/20/2024 9:58 AM CDT DTL Blood (Blood, Venous) 06/20/2024 7:43 AM CDT 06/20/2024 8:33 AM CDT Henrietta Conroy P.A.-C. LAB BLOOD ADD-ON [facility] [address] [place] [address], [facility] DTL [facility] [address] [place] [address] * Basic Metabolic Panel (06/20/2024 7:43 AM [...] CDT Henrietta Conroy P.A.-C. LAB BLOOD ADD-ON [facility] [address] [place] [address], [facility] [address] [place] [address] * CBC without Differential (06/20/2024 7:43 AM CDT) Pathologist [facility] Hemoglobin 13.9 11.6 - 15.0 g/dL 06/20/2024 [...] - 9.6 x10(9)/L 06/20/2024 8:51 AM CDT DTL Blood (Blood, Venous) 06/20/2024 7:43 AM CDT 06/20/2024 8:22 AM CDT Rich Duff P.A.-C., M.S. LAB BLOOD ADD-ON [facility] [address] [place] [address], [facility] [address] [place] [address] * Heparin Anti-Xa Assay (06/20/2024 12:51 AM CDT) Pathologist [facility] Heparin Anti-Xa, P 0.34 IU/mL 2023 1:29 AM CDT DTL Comment: UFH therapeutic range: [...] AM CDT 06/20/2024 1:12 AM CDT Henrietta Conroy P.A.-C. LAB BLOOD NON ADD-O N Performing Organization Address City/[facility]/ZIP Co de Phone Number [facility] [address] [place] [address] * (ABNORMAL) Troponin T, 5th Generation (06/20/2024 12:51 AM CDT) Troponin T, 5th gen 682(H) <=10 ng/L 06/20/2024 1:14 AM CDT [facility] Comment:Consider acute myoca rdial injury Blood (Blood, Venous) 06/20/2024 12:51 AM CDT 06/20/2024 12:58 AM CDT Rich Duff P.A.-C., M.S. LAB BLOOD ADD-ON Performing Organization Address City/[facility]/ZIP Co de Phone Number [facility] 200 [place] [address] * Hemoglobin A1c (06/19/2024 11:17 PM CDT) Hemoglobin A1c, B 5.6 4.0 - 5.6 % 06/20/2024 1:10 AM CDT DT Blood (Blood, Venous) 06/19/2024 11:17 PM CDT 06/19/2024 11:31 PM CDT Rich Duff P.A.-C. M.S. LAB BLOOD ADD-ON [facility] [address] [place] [address], [facility] [address] [place] [address] * (ABNORMAL) Lipid Panel (06/19/2024 11:17 PM CDT) Triglycerides 141 mg/dL 06/20/2024 12:00 AM CDT [...] M.S. LAB BLOOD ADD-ON Performing Organization Address [facility] Co de Phone Number [facility] [address] DTL [facility] [address] [place] [address] * (ABNORMAL) APTT (Activated Partial Thromboplastin Time) (06/19/2024 11:17 PM CDT) Pathologist [facility] Activated Partial Thrombopl Time, P 75(H) 25 - 37 sec 06/19/2024 11:46 PM CDT STMA Blood (Blood, Venous) 06/19/2024 11:17 PM CDT 06/19/2024 11:24 PM CDT Rich Duff P.A.-C., M.S. LAB BLOOD ADD-ON Performing Organization Address [facility] Co de Phone Number [facility] [address] [place] [address], [facility] [address] [place] [address] * ECG 12 Lead (06/19/2024 10:51 PM CDT) Pathologist [facility] Ventricular Rate ECG/Min 78 BPM MUSE NV Interval 138 ms MUSE QRSD Interval 84 ms MUSE QT Interval 378 ms MUSE QTC Interval 430 ms MUSE P Keller 59 degrees MUSE R Keller -20 degrees MUSE T Wave Keller 38 degrees MUSE 06/19/2024 10:5 1 PM [...] AM CDT 5 mg aspirin chewable tablet 81 mg 81 [...] Given 06/20/2024 9:08 AM CDT 1 tablet fentaNYL injection 25 mcg (Sublimaze) 25 mcg, intravenous, Every 2 min PRN, [...] Wed06/20/24 at 1646, Intraprocedure (CV), Subsequent doses Given 06/20/2024 4:51 PM CDT 50 mcg heparin (porcine) 1,000 unit/mL injection Code/trauma/sedation medication, Starting on Wed06/20/24 at 1708, Intraprocedure (CV) Given 06/20/2024 5:08 PM CDT 5,000 Units iohexoL 350 mg iodine/mL solution (Omnipaque) Code/trauma/sedation medication, Starting on Wed06/20/24 at 1717, Intraprocedure (CV) Given 06/20/2024 5:17 PM CDT 50 mL lidocaine 10 mg/mL (1 %) injection (Xylocaine) Code/trauma/sedation medication, Starting on Wed06/20/24 at 1703, Intraprocedure (CV) Given 06/20/2024 5:03 PM CDT 2 mL Right Wrist losartan tablet 12.5 mg (Cozaar) 12.5 mg, oral, Daily, First dose on Wed06/21/24 at 1015 Given 06/21/2024 11:28 AM CDT 12.5 mg metoprolol succinate 24 hr tablet 25 mg (Toprol XL) 25 mg, oral, Daily, First dose on Wed06/21/24 at 0900, Do NOT crush or chew. Tablet may be split on score if needed. Given 06/21/2024 8:26 AM CDT 25 mg midazolam (PF) injection 0.25 mg (Versed) 0.25 mg, intravenous, Every 2 min PRN, sedation, RASS -2, Starting on Wed06/20/24 at 1646, Intraprocedure (CV), May repeat every 2 minutes to a maximum of 5 mg. Do not give if respiratory rate is less than 8 breaths/minute. Given 06/20/2024 5:05 PM CDT 0.5 mg Given 06/20/2024 4:51 PM CDT 0.5 mg gozunekn-yuxbhnnap-yrundisgdofdz ophthalmic suspension 1 drop (Maxitrol) 1 drop, [...] Given 06/20/2024 6:36 AM CDT 40 mg pramipexole tablet 0.5 mg (Mirapex) 0.5 mg, [...] no infusion to maintain patency Given 06/20/2024 9: 33 PM CDT 3 mL traZODone tablet 25 [...] 1128 (Given - Provid er: Donavan Jones R.N.) aspirin chewable tablet 243 mg (COMPLETED) 243 mg, oral, Once, On Wed06/20/24 at 1645, For 1 dose, Preprocedure (CV) 1626 (Given - Provider: Radha Hartmann R.N.) aspirin chewable tablet 81 mg 81 mg, oral, Daily with morning meal, First dose on Wed06/20/24 at 0800 0938 (Given - Provider: Jennifer Barron R.N.)1623 (DEC Hold - Provider: Transfer Provider, Automatic - Reason: Patient not available)1817 (DEC Unhold - Provider: Transfer Provider, Automatic) 0826 (Given - Provider: Donavan Jones R.N.) calcium citrate-vitamin D3 315 mg-5 mcg [...] available)1817 (DEC Unhold - Provider: Transfer Provider, Automatic) 0825 (Given - Provider: Donavan Jones R.N.) clopidogreL tablet 600 mg (Plavix) (COMPLETED) 600 mg, oral, Once, On Wed06/20/24 at 0900, For 1 dose 0909 (Given - Provider: Jennifer Barron R.N.) losartan tablet 12.5 mg (Cozaar) 12.5 mg, oral, Daily, First dose on Wed06/21/24 at 1015 1128 (Given - Provid er: Donavan Jones R.N.) metoprolol succinate 24 hr tablet 25 mg (Toprol XL) 25 mg, oral, Daily, First dose on Wed06/21/24 at 0900, Do NOT crush or chew. Tablet may be split on score if needed. 0826 (Given - Provid er: Donavan Jones R.N.) metoprolol tablet 12.5 mg (Lopressor) (CANCELED) 12.5 mg, oral, 2 times daily, First dose on Wed06/20/24 at 0900 0908 (Given - Provider: Jennifer Barron RBobby)1623 (MAR Hold - Provider: Transfer Provider, Automatic - Reason: Patient not available)181 (MAR Unhold - Provider: Transfer Provider, Automatic)2058 (Given - Provider: Vashti PradoNQuyen) dscndyea-xqkmtimrj-cswueyy hasone ophthalmic suspension 1 drop (Maxitrol) 1 drop, left eye, 4 times daily, First dose on Wed06/20/24 at 0800, For 10 days, Shake well. 0908 (Given - Provider: Jennifer Barron R.N.)1236 (Given - Provider: Jennifer Barron RQuyenN.)1623 (MAR Hold - Provider: Transfer Provider, Automatic - Reason: Patient not available)1700 (Not Given - Provider: Tasha Mason R.N. - Reason: See Provider Order)1816 (MAR Unhold - Provider: Transfer Provider, Automatic)1825 (Given - Provider: Tasha Mason R.N.)2100 (Given - Provider: Janina Corea RQuyenN.) 0826 (Given - Provider: Donavan Jones R.N.)1128 (Given - Provider: Vashti RichN.)1700 (Due) pantoprazole DR tablet 40 mg (Protonix) 40 mg, oral, Daily before morning meal, First dose on Wed06/20/24 at 0700, pantoprazole 40 mg oral daily was interchanged for omeprazole 20 or 40 mg oral daily Swallow whole. Do NOT crush, chew, or split tablet. 0636 (Given - Provider: Janina Corea R.N.)1623 (MAR Hold - Provider: Transfer Provider, Automatic - Reason: Patient not available)181 (MAR Unhold - Provider: Transfer Provider, Automatic) 0629 (Given - Provider: Janina Corea RQuyenN.) pramipexole tablet 0.5 mg (Mirapex) 0.5 mg, oral, 2 times daily, First dose (after last modification) on Wed06/20/24 at 0045 0110 (Given - Provider: Janina Corea RQuyenN.)1623 (DEC Hold - Provider: Transfer Provider, Automatic - Reason: Patient not available)1816 (DEC Unhold - Provider: Transfer Provider, Automatic)2057 (Given - Provider: Janina Corea RQuyenN.)2106 (Not Given - Provider: Vashti PradoN. - Reason: See Provider Order - Comment: repeat order?? dose given at 2057) 0837 (Not Given - Provider: Vashti RichN. - Reason: Patient/family refused) rosuvastatin tablet 5 mg (Crestor) 5 mg, oral, Every other day, First dose on Wed06/21/24 at 2100 sodium chloride 0.9 % injection 3 mL 3 mL, intravenous, Every 12 hours scheduled, First dose on Wed06/20/24 at 0900, Peripheral Intravenous Catheter and Rapid Infusion Catheter, when no infusion to maintain patency 0956 (Not Given - Provider: Jennifer Barron RQuyenNQuyen - Reason: Order parameters not met)162 (DEC Hold - Provider: Transfer Provider, Automatic - Reason: Patient not available)1816 (DEC Unhold - Provider: Transfer Provider, Automatic)2132 (Given - Provider: Janina Corea RQuyenNQuyen) 0837 (Not Given - Provider: Donavan Jones RJhoan. - Reason: Other - Comment: Fluids infusing) [...] 2 hours until anti-Xa less than 1.2 6080 (New Bag - Provider: Janina Corea R.N.) 0127 (Rate/Dose Verify - Provider: Vashti PradoN.)0138 (Rate/Dose Change - Provider: Janina Corea RQuyenNQuyen)0700 (Rate/Dose Verify - Provider: Jennifer Barron RQuyenNQuyen)0953 (Rate/Dose Change - Provider: Jennifer Barron RQuyenNQuyen)1500 (Rate/Dose Verify - Provider: Tasha Mason R.N.) heparin (porcine) 100 Units/mL in NaCl 0.45% [...] 1.2 2131 (Restarted - Provider: Janina Corea RQuyenNQuyen) 1132 (Stopped - Provider: Donavan Jones R.N.) PRN Medication Order 06/19/2024 06/20/2024 06/21/2024 acetaminophen tablet 1,000 mg (TylenoL) 1,000 mg, oral, Every 6 hours PRN, mild pain or score 1-3 of 10, fever, Notify sevice prior to first administration for fever, Starting on Wed06/20/24 at 0230 0908 (Given - Provider: Jennifer Barron RQuyenNQuyen)1623 ([facility] Hold - Provider: Transfer Provider, Automatic - Reason: Patient not available)1816 ([facility] Unhold - Provider: Transfer Provider, Automatic) bisacodyL DR tablet 10 mg (Dulcolax) 10 mg, oral, Daily PRN, constipation, Starting on Wed06/19/24 at 2331, PO route preferred. Constipation unrelieved by docusate sodium (COLACE) if ordered. If results needed within 2 hours give rectal suppository if ordered. Swallow whole. Do NOT crush, chew, or split tablet. 1623 ([facility] Hold - Provider: Transfer Provider, Automatic - Reason: Patient not available)1816 ([facility] Unhold - Provider: Transfer Provider, Automatic) calcium carbonate chewable tablet 400 mg of calcium (Tums) 400 mg of calcium, oral, Every 2 hour PRN, indigestion, Not to exceed 12 tablets in 24 hours, Starting on Wed06/19/24 at 2331, Doses listed are in mg of elemental calcium. Take with food. 500 mg calcium carbonate contains 200 mg of elemental calcium. 1623 ([facility] Hold - Provider: Transfer Provider, Automatic - Reason: Patient not available)1816 (MAR Unhold - Provider: Transfer Provider, Automatic) fentaNYL [...] Wed06/20/24 at 1646, Intraprocedure (CV), Subsequent doses 1650 (Given - Provider: Alcira Manzano R.N.) heparin (porcine) 1,000 unit/mL injection (CANCELED) Code/trauma/sedation medication, Starting on Wed06/20/24 at 1708, Intraprocedure (CV) 170 (Given - Provider: Alcira Manzano R.N.) iohexoL 350 mg iodine/mL solution (Omnipaque) (CANCELED) Code/trauma/sedation medication, Starting on Wed06/20/24 at 1717, Intraprocedure (CV) 171 (Given - Provider: Alex Tam M.D.) lidocaine [...] respiratory rate is less than 8 breaths/minute. 165 (Given - Provider: Alcira Manzano R.N.)170 (Given - Provider: Alcira Manzano R.N.) nitroglycerin [...] split or swallow tablet., Indications: angina 1623 ([facility] Hold - Provider: Transfer Provider, Automatic - Reason: Patient not available)1816 ([facility] Unhold - Provider: Transfer Provider, Automatic) perflutren [...] post blood transfusion or post blood sampling 162 ([facility] Hold - Provider: Transfer Provider, Automatic - Reason: Patient not available)1816 ([facility] Unhold - Provider: Transfer Provider, Automatic) sodium chloride 0.9 % injection 10 mL (CANCELED) 10 mL, intravenous, As needed, line care, Starting on Wed06/20/24 at 1240, Intraprocedure - Diagnostic, Prior to and following infusion and between multiple consecutive infusions: sodium chloride 0.9 % injection 1243 (Given - Provider: Camilla Elizabeth R.D.C.S.)1623 ([facility] Hold - Provider: Transfer Provider, Automatic - Reason: Patient not available)181 ([facility] Unhold - Provider: Transfer Provider, Automatic) sodium chloride 0.9 % injection 3 mL 3 mL, intravenous, As needed, line care, Starting on Wed06/19/24 at 2330, Prior to and following infusion and between multiple consecutive infusions: sodium chloride 0.9 % injection 162 ([facility] Hold - Provider: Transfer Provider, Automatic - Reason: Patient not available)1816 (DEC Unhold - Provider: Transfer Provider, Automatic) traZODone tablet 25 mg (DesyreL) 25 mg, oral, Bedtime PRN, sleep, Starting on Wed06/20/24 at 0010 0026 (Given - Provider: Janina Corea RQuyenN.)1623 (DEC Hold - Provider: Transfer Provider, Automatic - Reason: Patient not available)181 (DEC Unhold - Provider: Transfer Provider, Automatic)2057 (Given - Provider: Janina Corea RQuyenN.) documented in this encounter Additional Health Concerns Assessment Noted Time PHQ-9 Depression Total Score: 0 01/10/20 20 2:42 PM CDT documented as of this encounter Care Teams Postbed Stitcher Relationship Specialty Start Date End Date Elsewhere, Pcp PCP - General Internal Medicine 03/05/23 documented as of this encounter
--- OUTSIDE RECORDS SUMMARY | 2024-07-05 12:53 | XMS_ITS | Referral Summary ---
Author Organization [facility] Address [address] [place] [address] Care Team Providers Care Fleet Manager/Dispatch Name Role Phone Elsewhere, Pcp Primary Care Provider Unavailabl e Source Comments Patient records contain information from all sites at [facility]. For routine questions regarding patient records, call [phone] during business hours, M-F 8:00 AM - 5:00 PM Central Time. Record requests for emergency care only can be directed to [phone] at any time.[facility] Encounters Date Type Department Care Team Description 06/30/2024 Clinical Communication Department of Cardiac Rehabilitation in [place], [place] [address] [place] [address] Devin Murray CEP Cardiac Rehab (Initial contact) 06/21/2024 Clinical Communication Department of Cardiovascular Diseases in [place], [place] [address] [place] [address] Gracy Wynn APRN, C.N.P. 06/21/2024 Clinical Communication Department of Cardiovascular Medicine in [place], [place] [address] [place] [address] Gracy Wynn APRN, C.N.P. 06/19/2024 10:36 PM CDT - 06/21/2024 5:59 PM CDT Hospital Encounter [facility], [facility], [facility], Fifth Floor [address] [place] [address] Kb Underwood M.D., Ph.D. Fredrick Gutierrez M.D. Non-ST Elevation Myocardial Infarction (HCC) (Primary Dx) Discharge Disposition: Home or Self Care 06/20/2024 3:56 PM CDT - 06/20/2024 5:11 PM CDT Surgery Division of Cardiovascular Diseases in [place], [place] [address] [place] [address] Alex Tam M.D. Coronary Angiography 06/19/2024 Intake [facility] 06/19/2024 6:38 PM CDT - 06/19/2024 9:29 PM CDT Emergency [facility] [address] [place] [phone] Sayra Robledo P.A.-C., P.Tacho., M.S. Boogie Terry M.D. Non-ST Elevation Myocardial Infarction (HCC) (Primary Dx) Discharge Disposition: Acute Care Hospital 06/19/2024 10:30 AM CDT Office Visit Department of Ophthalmology in [place], [place] [address] [place] [address] Jonathan Estrada O.D. Dry Eye Syndrome Bilateral (Primary Dx); Punctate Keratitis Left Eye Discharge Disposition: Home or Self Care 05/05/2024 Clinical Communication [facility] at [address] [address] Chavez Graf M.D. from Last 3 Months Allergies No known active allergies Medications Medication [...] DAILY 10/20/2019 06/19/20 24 Discontinued benzalkonium chloride (REVIT[facility]ER [facility] TOP) Apply topically. 06/19/20 24 [...] Syndrome 01/13/2012 Hyperlipidemia 07/25/2010 Pain Neck 12/16/2009 Immunizations Name Administration Dates Next Due HZV (ZOSTAVAX) 08/14/2016,07/17/2016 Influenza TIV (IM) 06/24/2019 Influenza, Unspecified 08/29/2012,08/06/2011, PCV13 06/24/2019 Tdap 02/20/2016 influenza trivalent LAIV (Na erik) (2 years through 49 years) 06/25/2013 Social History Tobacco Use Types Packs/Day Years Used Date Smoking Tobacco: Former Cigarettes 0.5 21 Smokeless Tobacco: Never Tobacco Cessation:Counseling Given: Not Answered Comments:quit 25+ years ago Alcohol Use Standard Drinks/Week Comments Yes 2 (1 standard drink = 0.6 oz pur e alcohol) [facility] Utilities Answer Date Recorded In the past 12 months has e rankdesk, gas, oil, or water company threatened to [...] than three times a week 07/10/2019 Attends Confucianist Services Patient declined 06/25 Active Member of [...] Answer Date Recorded PHQ-2 Score 0 01/10/2020 [facility] - Occupational Stress Questionnaire [...] your living situation today? I have a [facility] place to live 06/19/2024 Education Answer Date Recorded What is the highest level of school you have completed or the highest degree you have received? Associate degree: academic program 07/10/2019 Sex and Gender Information Value Date Recorded Sex Assigned at Female 09/26/2018 7:57 PM IMPLEMENTATION SERVICES ANALYST Gender Identity Female 09/26/2018 7:57 PM IMPLEMENTATION SERVICES ANALYST Sexual Orientation Straight 09/26/2018 7: 57 PM IMPLEMENTATION SERVICES ANALYST Last Filed Vital Signs Vital Sign Reading [...] CDT Appointment Department of Cardiac Rehabilitation in [place], [place] [address] [place] [phone] Fredrick Gutierrez M.D. [address] [place] [address] 07/18/2024 12:20 PM CDT Appointment Department of Cardiovascular Diseases in [place], [place] [address] [place] [address] Gracy Wynn, ANGELA, C.N.P. [address] [place] [phone] 07/20/2024 3:00 PM CDT Comprehensive Visit Department of Cardiovascular Diseases in [place], [place] [address] [place] [phone] Malou Mckenzie APRN, C.N.P. [address] [place] [address] Discharge Disposition: Home or Self Care Medical Devices Implanted Type Area Hotel Or Motel Cleaning Supervisor Device Identifier Shelf Expiration Date Model / Serial / Lot Screw Mk3 Terra Rp [id number] - [place] [id number] Implanted:Qty: 1 on 12/23/2012 Hardware e.g. pins/screws/ rods Tooth [employer] Description:Device Manufactu rer - [employer]. Body Location - tooth-19. Device Status Text - [id number]. Brane Abutment Healing Rp 5.0x3.0 - [place] [id number] Implanted:Qty: 1 on 12/23/2012 Hardware e.g. pins/screws/ rods Tooth [employer] Description:Device Manufactu rer - [employer]. Body Location - tooth-19. Device Status Text - [id number]. Procedures Procedure Name Priority Date/Time Associated Diagnosis [...] inpatients and all outpatients) 10/30/2022 11:10 AM IMPLEMENTATION SERVICES ANALYST Screening Mammogram Breast Cancer PATHOLOGY APPLICATION PACKAGER CYTOLOGY Routine 6 12:00 AM CDT from [...] Rich Duff P.A.-C., M.S. LAB BLOOD ADD-ON [facility] [address] [place] [address], [facility] [address] [place] [address] * Basic Metabolic Panel (06/21/2024 7:57 AM [...] LAB BLOOD AD D-ON Performing Organization Address [facility] Co de Phone Number [facility] [address] [place] [address], [facility] [address] [address] * Heparin Anti-Xa Assay (06/21/2024 7:56 AM [...] BLOOD NO N ADD-ON Performing Organization Address City/[facility]/ZIP Co de Phone Number [facility] [address] [place], [place] [address] [address] [place] [address] * (ABNORMAL) CRP (C-Reactive Protein) (06/21/2024 7:54 AM CDT) C-Reactive Protein (CRP), S 8.7(H) <5.0 mg/L 06/21/2024 10:50 AM CDT DTL Blood (Blood, Venous) 06/21/2024 7:54 AM CDT 06/21/2024 10:22 AM CDT Charan Blake APRNNEnzo LAB BLOOD AD D-ON Performing Organization Address City/[facility] Co de Phone Number [facility] [address] [place], [place] [address] [address] [place] [address] * CORONARY ANGIOGRAPHY (06/20/2024 5:21 PM CDT) [...] complete report, see the Order-Level Documents. Henrietta Cornoy P.A.-C. CV CARDIAC CATH PRO CEDURES * [...] per Echocardiography Contrast Administration Protocol Reference Document [id number] Rev 02/05/2022. Patient met an inclusion criterion [...] 15. Emergency communication to Gracy Wynn APRN, ZIGZAG ELASTIC ATTACHER at 13:25 hours, 20 June, ??regarding the critical echocardiography results was completed and acknowledged. Procedure Note Jefferson Hurtado M.D. - 06/20/2024 For the complete report, see the Order-Level Documents. Hemodynamics Heart Rate: 61 BPM Blood Pressure: 104 / 81 mmHg ECG: Sinus rhythm Final Impressions 1. Normal left ventricular chamber size. 2. Calculated 2-D monoplane volumetric left ventricular ejection yqrvgcuu18%. 3. Regional wall motion abnormalities were present [...] administered per EchocardiographyContrast Administration Protocol Reference Document [id number] Rev02/05/2022. Patient met an inclusion criterion and [...] P.A.-C. LAB BLOOD ADD-ON Performing Organization Address City/[facility]/ZIP Co de Phone Number [facility] [address] [facility] [address] [place] [address] * (ABNORMAL) Troponin T, 5th Generation (06/20/2024 12:51 AM CDT) Troponin T, 5th gen 682(H) <=10 ng/L 06/20/2024 1:14 AM CDT [facility] Comment:Consider acute myoca rdial injury Blood (Blood, Venous) 06/20/2024 12:51 AM CDT 06/20/2024 12:58 AM CDT Rich Duff P.A.-C., M.S. LAB BLOOD ADD-ON Performing Organization Address City/[facility]/ZIP Co de Phone Number [facility] [address] [place] [address], [facility] STMA [facility] [address] [place] [address] * (ABNORMAL) Lipid Panel (06/19/2024 11:17 PM [...] Rich Duff P.A.-C., M.S. LAB BLOOD ADD-ON [facility] [address] [place] [address], [facility] [address] [place] [address] * (ABNORMAL) APTT (Activated Partial Thromboplastin Time) (06/19/2024 11:17 PM CDT) [facility] Activated Partial Thrombopl Time, P 75(H) 25 - 37 sec 06/19/2024 11:46 PM CDT [facility] Blood (Blood, Venous) 06/19/2024 11:17 PM CDT 06/19/2024 11:24 PM CDT Rich Duff P.A.-C., M.S. LAB BLOOD ADD-ON [facility] [address] [place], [place] [phone] [place] [address] [address] [place] [address] * Hemoglobin A1c (06/19/2024 11:17 PM CDT) [facility] Hemoglobin A1c, B 5.6 4.0 - 5.6 % 06/20/2024 1:10 AM CDT [facility] Blood (Blood, Venous) 06/19/2024 11:17 PM CDT 06/19/2024 11:31 PM CDT Rich Duff P.A.-C., M.S. LAB BLOOD ADD-ON [facility] [address] [place] [address] * ECG 12 Lead (06/19/2024 10:51 PM CDT) Only the most recent of3 resultswithin the time period is included. [facility] Ventricular Rate ECG/Min 78 BPM MUSE [place] Interval 138 ms MUSE QRSD Interval 84 ms MUSE QT Interval 378 ms MUSE QTC Interval 430 ms MUSE P [place] 59 degrees MUSE R [place] -20 degrees MUSE T Wave [place] 38 degrees MUSE 06/19/2024 10:5 1 PM [...] complexes are no longer present Reviewed by JOSSEYLN Sy Henrietta Conroy P.A.-C. ECG ORDERABLES MUSE NA * (ABNORMAL) Troponin T, 2 [...] P.A.-C., P.A., M.S. L AB BLOOD TROPONIN [facility] [address] [facility] [place] [address], [facility] [place] [facility]- [facility] [place] & [address] [place] [address] * Critical Care (06/19/2024 8:05 PM CDT) Narrative Sayra Robledo P.A.-C., PInés, M.Scott. - 06/19/2024 8:05 PM CDT Sayra Robledo P.A.-C., Iris, Marisol. ? 06/19/2024 ??8:05 PM Critical Care Performed by: Sayra Robledo P.A.-C., Iris, Marisol. Authorized by: Sayra Robledo P.A.-C., Iris, Mackenzie ?? Critical care provider statement: Critical care [...] my specialty: no ?? Sayra Robledo P.A.-C., Iris, M.S. P ROCEDURE/MINOR SURGICAL ORDERABLES * DX [...] P.A.-C., P.A., M.S. L AB BLOOD ADD-ON [facility] [address] [place] [address], [facility] [place] [facility]- [facility] [address] [place] [address] * D-Dimer (06/19/2024 7:05 PM CDT) D-Dimer, P 475 <=500 ng/mL FEU 06/19/2024 [...] P.A.-C., P.A., M.S. L AB BLOOD ADD-ON [facility] [address] [address], [facility]- [address] [address] * (ABNORMAL) CBC with Differential, Blood (06/19/2024 7:05 PM CDT) [facility] Hemoglobin 13.8 11.6 - 15.0 g/dL 06/19/2024 [...] P.A.-C., P.A., M.S. L AB BLOOD ADD-ON [facility] [address] [place] [address], [facility] [address] [address] * (ABNORMAL) Comprehensive Metabolic Panel (06/19/2024 7:05 [...] P.A.-C., P.A., M.S. L AB BLOOD ADD-ON [facility] [address] [address], [facility] [place] [facility]- [address] [address] * (ABNORMAL) Troponin T, Baseline with 2 Hour/6 Hour Reflex Biomarker Panel (06/19/2024 7:04 PM CDT) Troponin T, Baseline, 5th gen 520(H) <=10 ng/L 06/19/2024 7:25 PM CDT [facility] Comment:Consider acute myoca rdial injury Blood (Blood, Venous) 06/19/2024 7:04 PM CDT 06/19/2024 7:07 PM CDT Sayra Robledo P.A.-C., P.A., M.S. L AB BLOOD TROPONIN Performing Organization Address City/[facility]/ZIP Co de Phone Number [facility] [address] [place] [address], [facility] [place] [address] [place] [address] * NT-Pro B-Type Natriuretic Peptide (BNP) (06/19/2024 [...] P.A.-C., P.A., M.S. L AB BLOOD ADD-ON [facility] [address] [place] [address], [facility] [place] [facility]- [facility] & [place] [address] [place] [address] * BI Breast Screening Bilateral with Tomosynthesis (10/30/2022 11:10 AM IMPLEMENTATION SERVICES ANALYST) Anatomical Region Laterality Modality Breast, Breast Imaging RST L OS, Breast Imaging ARZ LOS, Breast Imaging FLA LOS Bilateral Mammography 10/30/2022 2:00 PM IMPLEMENTATION SERVICES ANALYST Impressions 10/30/2022 2:01 PM IMPLEMENTATION SERVICES ANALYST Negative. RECOMMENDATION: ??Annual Screening Mammogram ASSESSMENT: ??BI-RADS: 1: Negative. Narrative 10/30/2022 2:01 PM IMPLEMENTATION SERVICES ANALYST EXAM: ??BI BREAST SCREENING BILATERAL WITH TOMOSYNTHESIS [...] ASSESSMENT: BI-RADS: 1: Negative. Asif Perry M.D. IMG [facility] * Pathology APPLICATION PACKAGER Cytology (02/12/2016 12:00 AM CDT) 02/12/2016 Narrative [facility] - 02/19/2016 10:05 AM CDT [facility] in [address] [place], [place] ??[address] Patient Name: HAYLEE CEBALLOS Collected: 02/12/2016 Address: [facility]/State/Zip: [address] [place] [address] ??[phone] Received: Reported: 02/13/2016 02/19/2016 Soc. Sec. #: ?/Age/Sex 1955 (Age: 60) ??F Physician(s): HI LOZA MD Copy To: ? [facility] ??[id number] [address] [facility] [place], [place] ??[address] CYTOPATHOLOGY APPLICATION PACKAGER REPORT FINAL CYTOLOGIC DIAGNOSIS Pap Smear - ThinPrep with HPV: NEGATIVE FOR INTRAEPITHELIAL LESION OR MALIGNANCY PRESENCE OR ABSENCE OF ENDOCERVICAL COMPONENT CANNOT BE DETERMINED DUE TO ATROPHY. SATISFACTORY SPECIMEN FOR EVALUATION. Electronically Signed Out By 02/19/2016 [facility](ASCP) The Pap test is a screening procedure [...] Out Date Complete: ? 02/19/2016 ? By: ??[facility](ASCP) Date Reported: ? 02/19/2016 INTERPRETATION: Test: Aptima High Risk HPV Result: NEGATIVE FOR HIGH RISK HPV Specimen Description: ThinPrep? ? ? Pap Test PreservCyt Solution HPV by [facility] Machine-Mediated Amplification (TMA) for E6/E7 viral messenger RNA [...] Loza M.D. LAB PAP COPATH ORDER MUNDO [facility] from Last 3 Months or Most Recently Relevant to Health Maintenance Advance Directives For more information, please contact: [phone] * Full Code (Latest Code Status on File) Date Activated Date Inactivated Comments 06/20/2024 3:11 PM 06/21/2024 7:59 PM Question Answer Comments Full Code: Discussed * DNR/DNI Date Activated Date Inactivated Comments 06/19/2024 11:22 PM 06/20/2024 3:11 PM Question Answer Comments DNR/DNI (Do Not Resuscitate/Do Not Intubate): Brittanie stewart-Patient Care Teams Fleet Manager/Dispatch Relationship Specialty Start Date End Date Elsewhere, Pcp PCP - General Internal Medicine 03/05/23
--- OUTSIDE RECORDS SUMMARY | 2024-07-05 12:54 | XMS_ITS | Encounter Summary ---
Author Organization [facility] Address [address] [place] [address] Care Team Providers Care Mixologist Name Role Phone Elsewhere, Pcp Primary Care Provider Unavailabl e Encounter Details Date Type Department Care Team (Late st Contact Info) Description 05/05/2024 Clinical Communication Primary Care on Demand at [facility] [address] [place] [address] Chavez Graf M.D. [address] [place] [address] Social History Tobacco Use Types Packs/Day Years Used Date Smoking Tobacco: Former Cigarettes 0.5 21 Smokeless Tobacco: Never Comments:quit 25+ years ago Alcohol Use Standard Drinks/Week Comments Yes 2 (1 standard drink = 0.6 oz pur e alcohol) Humiliation, Afraid, Rape, and Kick questionnair e Answer Date Recorded Fear of Current or Ex-Partner No Emotionally Abused No 07/10/2019 Physically Abused No 07/10/2019 Sexually Abused No 07/10/2019 Social Connection and Isolat ion Panel [NHANES] Answer Date Recorded Frequency of Communication w ith Friends and Family More than three times a week 07/10/2019 Frequency of Social Gatherin gs with Friends and Family More than three times a week 07/10/2019 Attends [employer] Services Patient declined 06/25 Active Member of [...] Answer Date Recorded PHQ-2 Score 0 01/10/2020 [facility] of Occupat ional Health - Occupational Stress Questionnaire Answer Date Recorded Feeling of Stress Only a little 07/10/2019 Exercise Vital Sign Answer Date Recorde d Days of Exercise per Week 4 days 2018 Minutes of Exercise per Session 30 min 07/10/2019 Hunger Vital Sign Answer Date Recorded Worried About Running Out of Food in the Last Ye ar Never true 07/10/2019 Ran Out of Food in the Last Year Never true 07/10/2019 PRAPARE - Transportation Answer Date Re corded Lack of Transportation (Medical) No 07/10/2019 Lack of Transportation (Non-Medical) No 07/10/2019 Depression Answer Date Recor ded PHQ-9 Total Score (max 27) 0 01/09 Nutrition Answer Date Recorded Nutrition: EVOO Fat Source Unknown 12/15 Nutrition: Servings of Fruits/Vegetables per Day Not on file 12/15/2020 Dental Answer Date Recorded Dental: Regular Dentist Unknown 12/15/19 Education Answer Date Recorded What is the highest level of school you have completed or the highest degree you have received? Associate degree: academic program 07/10/2019 Sex and Gender Information Value Date Recorded Sex Assigned at Female 09/26/2018 7:57 PM PILOT PLANT SUPERVISOR Gender Identity Female 09/26/2018 7:57 PM PILOT PLANT SUPERVISOR Sexual Orientation Straight 09/26/2018 7: 57 PM PILOT PLANT SUPERVISOR documented as of this encounter Plan of Treatment Upcoming Encounters Date Type Department Care Team (Latest Contact Info) Description 07/18/2024 8:00 AM CDT Appointment Department of Cardiac Rehabilitation in [place], [place] [address] [place] [phone] Fredrick Gutierrez M.D. [address] [place] [address] 07/18/2024 12:20 PM CDT Appointment Department of Cardiovascular Diseases in [place], [place] [address] [place] [address] Gracy Wynn APRN, C.N.P. [address] [place] [phone] 07/20/2024 3:00 PM CDT Comprehensive Visit Department of Cardiovascular Diseases in [place], [place] [address] [place] [address] Malou Mckenzie APRN, C.N.P. [address] [place] [phone] Discharge Disposition: Home or Self Care documented as of this encounter Visit Diagnoses Not on filedocumented in this encounter Additional Health Concerns Assessment Noted Time PHQ-9 Depression Total Score: 0 01/10/20 20 2:42 PM CDT documented as of this encounter Care Teams Mixologist Relationship Specialty Start Date End Date Elsewhere, Pcp PCP - General Internal Medicine 03/05/23 documented as of this encounter
--- OUTSIDE RECORDS SUMMARY | 2024-07-05 12:54 | XMS_ITS | Encounter Summary ---
Author Organization [facility] Address [address] [place] [address] Care Team Providers Care Fabric Designer Name Role Phone Elsewhere, Pcp Primary Care Provider Unavailabl e Encounter Details Date Type Department Care Team (Late st Contact Info) Description 03/20/2024 Clinical Communication Primary Care on Demand at [facility] [address] [place] [address] Chavez Graf M.D. [address] [place] [address] Social History Tobacco Use Types [...] than three times a week 07/10/2019 Attends Holiness Services Patient declined 06/25 Active Member of [...] Answer Date Recorded PHQ-2 Score 0 01/10/2020 [facility] of Occupat ional Health - Occupational Stress [...] Sex Assigned at Female 09/26/2018 7:57 PM MASTER CHEF Gender Identity Female 09/26/2018 7:57 PM MASTER CHEF Sexual Orientation Straight 09/26/2018 7: 57 PM MASTER CHEF documented as of this encounter Plan of Treatment Upcoming Encounters Date Type Department Care Team (Latest Contact Info) Description 07/18/2024 8:00 AM CDT Appointment Department of Cardiac Rehabilitation in [place], [place] [address] [place] [phone] Fredrick Gutierrez M.D. [address] [place] [address] 07/18/2024 12:20 PM CDT Appointment Department of Cardiovascular Diseases in [place], [place] [address] [place] [address] Gracy Wynn APRN, C.N.P. [address] [place] [phone] 07/20/2024 3:00 PM CDT Comprehensive Visit Department of Cardiovascular Diseases in [place], [place] [address] [place] [address] Malou Mckenzie APRN, C.N.P. [address] [place] [phone] Discharge Disposition: Home or Self Care documented as of this encounter Visit Diagnoses Not on filedocumented in this encounter Additional Health Concerns Assessment Noted Time PHQ-9 Depression Total Score: 0 01/10/20 20 2:42 PM CDT documented as of this encounter Care Teams Fabric Designer Relationship Specialty Start Date End Date Elsewhere, Pcp PCP - General Internal Medicine 03/05/23 documented as of this encounter
--- OUTSIDE RECORDS SUMMARY | 2024-07-05 12:54 | XMS_ITS | Encounter Summary ---
Author Organization [facility] Address [address] [place] [address] Care Team Providers Care Goodwill Ambassador Name Role Phone Elsewhere, Pcp Primary Care Provider Unavailabl e Encounter Details Date Type Department Care Team (Latest Contact Info) Description 06/19/2024 Intake [facility] Social History Tobacco Use Types Packs/Day Years Used Date Smoking Tobacco: Former Cigarettes 0.5 21 Smokeless Tobacco: Never Comments:quit 25+ years ago Alcohol Use Standard Drinks/Week Comments Yes 2 (1 standard drink = 0.6 oz pur e alcohol) [facility] Utilities Answer Date Recorded In the past 12 months has e [employer], gas, oil, or water company threatened to [...] than three times a week 07/10/2019 Attends Anabaptist Services Patient declined 06/25 Active Member of [...] Answer Date Recorded PHQ-2 Score 0 01/10/2020 [facility] [place] of Occupat ional Health - Occupational Stress [...] Sex Assigned at Female 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 [address] [place] [phone] 07/18/2024 12:20 PM CDT Appointment Department of Cardiovascular Diseases in [place], [place] [address] [place] [address] Gracy Wynn APRN, C.N.P. [address] [place] [phone] 07/20/2024 3:00 PM CDT Comprehensive Visit Department of Cardiovascular Diseases in [address] [phone] Malou Mckenzie APRN, C.N.P. [address] [place] [phone] Discharge Disposition: Home or Self Care documented as of this encounter Visit Diagnoses Not on filedocumented in this encounter Additional Health Concerns Assessment Noted Time PHQ-9 Depression Total Score: 0 01/10/20 20 2:42 PM CDT documented as of this encounter Care Teams Goodwill Ambassador Relationship Specialty Start Date End Date Elsewhere, Pcp PCP - General Internal Medicine 03/05/23 documented as of this encounter
--- OUTSIDE RECORDS SUMMARY | 2024-07-05 12:54 | XMS_ITS | Encounter Summary ---
Author Organization [facility] Address [address] [place] [address] Care Team Providers Care Strike Warfare/Missile Systems Officer Name Role Phone Elsewhere, Pcp Primary Care Provider Unavailabl e Reason for Visit * Reason Comments Blurred Vision Encounter Details Date Type Department Care Team (Late st Contact Info) Description 06/19/2024 10:30 AM CDT Office Visit Department of Ophthalmology in [place], [place] [address] [place] [phone] Jonathan Estrada O.D. [address] [place] [phone] Dry Eye Syndrome Bilateral (Primary Dx); Punctate Keratitis Left Eye Discharge Disposition: Home or Self Care Social History Tobacco Use Types Packs/Day Years Used Date Smoking Tobacco: Former Cigarettes 0.5 21 Smokeless Tobacco: Never Comments:quit 25+ years ago Alcohol Use Standard Drinks/Week Comments Yes 2 (1 standard drink = 0.6 oz pur e alcohol) [facility] Utilities Answer Date Recorded In [...] than three times a week 07/10/2019 Attends Synagogue Services Patient declined 06/25 Active Member of Clubs or Organizations No 07/10/2019 Attends Club or Organization Meetings Not on gorge e 07/10/2019 Marital Status 07/10/2019 AUDIT-C Answer Date Recorded Frequency of Alcohol Consumption 2-4 times a wed07/10/2019 Average Number of Drinks 1 or 2 019 Frequency of Binge Drinking Never 06/25 Overall Financial Resource Strain (CARDIA) Answe r Date Recorded Difficulty of Paying Living Expenses Not hard at all 07/10/2019 PHQ-2 Answer Date Recorded PHQ-2 Score 0 01/10/2020 [facility] of Occupat ional Health - Occupational [...] your living situation today? I have a [facility] place to live 06/19/2024 Education Answer Date Recorded What is the highest level of school you have completed or the highest degree you have received? 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 - 06/19/2024 10:30 AM CDT Morgan Rachel Ceballos was seen today for Blurred Vision #1 Dry Eye Syndrome Bilateral #2 Punctate Keratitis Left Eye 1.2. I discussed with Morgan. I will have her start Maxitrol drops 4 times a day for 10-14 days. Systane drops 4 times a day. She has punctal plug in RE but not LE which may account for more drynessin LE. Vision is blurry, but improves with pinhole. If after treatment eye feels better but vision remains blurry, return for routine eye exam and refraction. Follow-up if symptoms worsen or fail to improve. documented in this encounter Plan of Treatment Upcoming Encounters Date Type Department Care Team (Latest Contact Info) Description 07/18/2024 8:00 AM CDT Appointment Department of Cardiac Rehabilitation in [place], [place] [address] [place] [address] Fredrick Gutierrez M.D. [address] [place] [address] 07/18/2024 12:20 PM CDT Appointment Department of Cardiovascular Diseases in [place], [place] [address] [place] [phone] Gracy Wynn, ANGELA, C.N.P. [address] [place] [address] 07/20/2024 3:00 PM CDT Comprehensive Visit Department of Cardiovascular Diseases in [place] [address] [place] [phone] Malou Mckenzie APRN, C.N.P. [address] [place] [phone] Discharge Disposition: Home or Self Care documented as of this encounter Visit Diagnoses Diagnosis Dry Eye Syndrome Bilateral- Primary Punctate Keratitis Left Eye documented in this encounter Additional Health Concerns Assessment Noted Time PHQ-9 Depression Total Score: 0 01/10/20 20 2:42 PM CDT documented as of this encounter Care Teams Strike Warfare/Missile Systems Officer Relationship Specialty Start Date End Date Elsewhere, Pcp PCP - General Internal Medicine 03/05/23 documented as of this encounter
--- OUTSIDE RECORDS SUMMARY | 2024-07-05 12:54 | XMS_ITS | Encounter Summary ---
Author Organization [facility] Address [address] [place] [address] Care Team Providers Care Tax Collection Coordinator Name Role Phone Elsewhere, Pcp Primary Care Provider Unavailabl e Reason for Visit * Reason Comments Chest Pain Pt presents with con cerns of fullness in her chest/base of neck, intermittent dizziness, possible diaphoresis that has been occurring in the past couple of weeks. She states she notices it most following activity such as walking up the stairs. States she can feel that her pulse is irregular. No cardiac hx. Denies headache, N/V/D, abd pain, GI/ issues. Encounter Details Date Type Department Care Team (Late st Contact Info) Description 06/19/2024 6:38 PM CDT - 06/19/2024 9:29 PM CDT Emergency [facility] [address] [place] [phone] Sayra Robledo P.A.-C., P.A., M.S. [address] [place] [phone] Boogie Terry M.D. [address] [place] [phone] Non-ST Elevation Myocardial Infarction (HCC) (Primary Dx) Discharge Disposition: Acute Care Hospital Social History Tobacco Use Types Packs/Day Years Used Date Smoking Tobacco: Former Cigarettes 0.5 21 Smokeless Tobacco: Never Comments:quit 25+ years ago Alcohol Use Standard Drinks/Week Comments Yes 2 (1 standard drink = 0.6 oz pur e alcohol) [facility] Utilities Answer Date Recorded In the [...] than three times a week 07/10/2019 Attends [employer] Patient declined 06/25 Active Member of [...] Answer Date Recorded PHQ-2 Score 0 01/10/2020 [facility] [place] of Occupat ional Health - Occupational Stress [...] your living situation today? I have a [facility] place to live 06/19/2024 Education Answer Date Recorded What is the highest level of school you have completed or the highest degree you have received? 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 45 tablet 06/21/2024 pujkvptv-qdgjzalfs-nh xamethasone (Maxitrol) 3.5mg/mL-10,000 unit/mL-0.1 % ophthalmic suspension Administer 1 drop into the left eye 4 (four) times a day for 10 days. 5 mL 06/19/2024 06/29/2024 traZODone (DESYREL) 50 mg tablet Take 1 tablet (50 mg total) by mouth daily. 90 tablet 3 08/19/2018 06/21/2024 documented as of this encounter Procedure Notes * RosendaSayra raya P.A.-C., Mackenzie Simmons - 06/19/2024 8:05 PM CDTAssociated Order(s): Critical Care Procedure Critical Care Performed by: Sayra Robledo P.A.-C., Mackenzie Simmons Authorized by: Sayra Robledo P.A.-C., Antoine SimmonsSQuyen Critical care provider statement: Critical care total time (minutes): 30 Critical care time was exclusive of: separately billable procedures and treating other patients andteaching time CPR was performed on this patient: no Critical care was necessary to treat or [...] treatments and interventions, pulse oximetry, re-evaluation of patie nt's condition, review of old charts, discussing treatment issues with family or surrogate, documenting in the patient chart and discussions with consultants I assumed direction of critical care for this patient from another provider in my specialty: no Sayra Robledo P.A.-C., Lisa Simmons.SQuyen 06/19/242004 documented in this encounter ED Notes * Sayra Robledo P.A.-C., Iris M.S. - 06/19/2024 6:52 PM CDT SUBJECTIVE CHIEF COMPLAINT/REASON FOR VISIT Chest Pain (Pt presents with concerns of fullness in her chest/base of neck, intermittent dizziness, possible diaphoresis that has been occurring in the past couple of weeks. She states she notices it most following activity such as walking up the stairs. States she can feel that her pulse is irregular. No cardiac hx. Denies headache, N/V/D, abd pain, GI/ issues. ) HISTORY OF PRESENT ILLNESS 68-year-old white female presents for chest discomfort for the past week. Worse this afternoon. Also some dizziness. 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 No distress. Eyes: Conjunctivae are normal. Neck: No tracheal deviation present. Cardiovascular: Regular rhythm. Tachycardia (mild) present. Pulmonary/Chest: Effort normal and breath sounds normal. There is normal air entry. No stridor. No respiratory distress. She has no wheezes. She has no rhonchi. Abdominal: Soft. exhibits no distension. There is no abdominal tenderness. There is no guarding. Neurological: Alert and oriented to person, place, and time. . No obvious deficits. Patient walked into the ER unassisted. Interacting normally Skin: She is not diaphoretic. Psychiatric: She has a normal mood and affect. Behavior is normal. ASSESSMENT/PLAN Chronic Illness Impacting Care: History of hyperlipidemia makes patient slightly higher risk for cardiopulmonary pathology Social Determinants Impacting Care (literacy, employment, housing, substance abuse): N/a Differential Diagnoses include: ACS, PE, pneumonia, GERD, anxiety, dehydration Upon presentation patient is under no acute distress, appears non-toxic, and is alert and oriented.Heart rate is 105, other VS are stable on room air. IV fluids offered, but patient would like to try drinking fluids 1st. I think that is reasonable 68-year-old white female with history of hyperlipidemia presents from home via private car for intermittent substernal chest discomfort that is worse with standing and walking for the past week. Symptoms got worse earlier today while golfing out in severe heat. It is nearly 100?? today. Also reports some mild dizziness while golfing. Denies any shortness of breath, syncope, diaphoresis, fever, trauma, fall, other symptoms. Exam is overall benign. Will start with labs including D-dimer, EKG, chest x-ray See ED course for results and plan Assessment and Plan I reviewed the following external records: prior outpatient labs, primary care records and prior outpatient radiology tests. ED Course as of 06/19/242004Jun 19, 2024 1844 ECG 12 Lead Initial EKG shows mild sinus tachy at 110bpm with slight ST elevation in 1, V2, and V3. Possible early repolarization on my interpretation. No reciprocal changes noted. I have low suspicion for STEMI. Troponins are pending 1929 Troponin T, Baseline, 5th gen(!): 520 Very high. EKG faxed to [facility]. Repeat EKG ordered. Aspirin ordered. 1930 [facility] contacted for transfer. Nini is phone nurse. They will call back 1930 Creatinine: 0.99 CMP is unremarkable 1930 DX Chest Portable 1 View Unremarkable on my interpretation. Radiology concurs 1936 ECG 12 Lead Repeat EKG shows sinus rhythm at [address]-elevation still noted in V2 and V3. No newor different changes noted. No reciprocal changes. Patient states she is pain-free. 1938 NT-Pro BNP: [address] Underwood from cardiology in [place] calls back. He recommends heparin loading dose and infusion and transfer to [facility]. No Plavix at this time. He states it does not meet STEMI criteria. I agree with his plan. Heparin ordered. Patient is on bed hold 1999 IMPRESSION: Workup reveals an unexpectedly elevated troponin and patient is likely having an NSTEMI. Fortunately, she is pain-free and vital signs are stable. Will transfer to [facility]. Tests/prescriptions considered and not done: Further emergent labs and imaging not warranted At time of transfer patient is under no acute distress, appears non-toxic, and is still alert and acting normally. PLAN: Patient transferred to [facility] for NSTEMI. Dr. Malika Kumar is the accepting Final Diagnoses: as of 06/19/242004 Non-ST Elevation Myocardial Infarction (HCC) Sayra Robledo P.A.-C., P.Tacho., M.S. 06/19/242004 documented in this encounter Plan of Treatment Upcoming Encounters Date Type Department Care Team (Latest Contact Info) Description 07/18/2024 8:00 AM CDT Appointment Department of Cardiac Rehabilitation in [place], [place] [address] [place] [phone] Fredrick Gutierrez M.D. [address] [place] [phone] 07/18/2024 12:20 PM CDT Appointment Department of Cardiovascular Diseases in [place], [place] [address] [place] [phone] Gracy Wynn APRN, C.N.P. [address] [place] [address] 07/20/2024 3:00 PM CDT Comprehensive Visit Department of Cardiovascular Diseases in [place], [place] [address] [place] [phone] Malou Mckenzie APRN, C.N.P. [address] [place] [phone] Discharge Disposition: Home or Self Care documented as of this encounter Procedures Procedure Name Priority Date/Time Associated Diagnosis Comments TROPONIN T, 2H/6H REFLEX, 5TH GEN, P Timed 06/19/2024 9:11 PM CDT CRITICAL CARE Routine 06/19/2024 8:05 PM CDT ECG STAT 06/19/2024 7:36 PM CDT DX CHEST PORTABLE 1 VIEW RAD - Emergent (Fastest; for the most critically ill patients) 06/19/2024 7:22 PM CDT PROTHROMBIN TIME (PT), P STAT 06/19/2024 7:05 PM CDT D-DIMER, P STAT 06/19/2024 7:05 PM CDT CBC WITH DIFFERENTIAL, B STAT 06/19/2024 7:05 PM CDT COMPREHENSIVE METABOLIC PANEL, S/P STAT 06/19/2024 7:05 PM CDT TROPONIN T, BASELINE, 5TH GEN, P STAT 06/19/2024 7:04 PM CDT NT-PRO B-TYPE NATRIURETIC PEPTIDE (BNP), S STAT 06/19/2024 7:04 PM CDT ECG STAT 06/19/2024 6:43 PM CDT documented in this encounter Results * (ABNORMAL) Troponin T, 2 Hour with [...] P.A.-C., P.A., M.S. L AB BLOOD TROPONIN [facility] [address] [address], [facility] [place] [facility]- [facility] [address] [place] [address] * Critical Care (06/19/2024 8:05 PM CDT) Narrative Sayra Robledo P.A.-C., Marisol Simmons. - 06/19/2024 8:05 PM CDT Sayra Robledo P.A.-C., Marisol Simmons. ? 06/19/2024 ??8:05 PM Critical Care Performed by: Sayra Robledo P.A.-C., Mackenzie Simmons Authorized by: Sayra Robledo P.A.-C., Iris, Mackenzie [...] specialty: no ?? Sayra Robledo P.A.-C., Iris, M.SQuyen P ROCEDURE/MINOR SURGICAL ORDERABLES * ECG 12 Lead (06/19/2024 7:36 PM CDT) Ventricular Rate ECG/Min 88 BPM MUSE MI Interval 138 ms MUSE QRSD Interval 78 ms MUSE QT Interval 360 ms MUSE QTC Interval 435 ms MUSE P [place] 59 degrees MUSE R [place] -16 degrees MUSE T Wave [place] 59 degrees MUSE 06/19/2024 7:36 PM CDT 06/19/2024 7:59 PM CDT Impressions MUSE - 06/19/2024 7:59 PM CDT Sinus rhythm with marked sinus arrhythmia Premature ventricular complexes Low voltage QRS ST less elevated in Anteroseptal leads When compared with ECG of 19-Jun-2024 18:43, Premature ventricular complexes are now present Reviewed by JOSSELYN Hussein Narrative Procedure Note Xu Umanzor M.D., Ph.D. - 06/19/2024 IMPRESSION: Sinus rhythm with marked sinus arrhythmia Premature ventricular complexes Low voltage QRS ST less elevated in Anteroseptal leads When compared with ECG of 19-Jun-2024 18:43, Premature ventricular complexes are now present Reviewed by JOSSELYN Hussein Sayra Robledo P.A.-C., P.A., M.S. E CG ORDERABLES MUSE NA * DX Chest Portable 1 View (06/19/2024 [...] L AB BLOOD ADD-ON Performing Organization Address [facility] Co de Phone Number [facility] [address] [place] [phone], [facility] [place] [facility]- [facility] & [address] [address] * D-Dimer (06/19/2024 7:05 PM CDT) [facility] D-Dimer, P 475 <=500 ng/mL FEU 06/19/2024 [...] L AB BLOOD ADD-ON Performing Organization Address [facility] Co de Phone Number [facility] [address] [place] [address], [facility] [place] [facility]- [facility] [place] & [address] [place] [address] * (ABNORMAL) Comprehensive Metabolic Panel (06/19/2024 7:05 PM CDT) Pathologist [facility] Potassium, P 3.8 3.6 - 5.2 mmol/L [...] 06/19/2024 7:07 PM CDT Sayra Dasilva Meena Cho, P.A., M.S. L AB BLOOD ADD-ON [facility] [address] [place] [address], [facility] [place] [facility]- [facility] & [place] [address] [place] [address] * (ABNORMAL) CBC with Differential, Blood (06/19/2024 7:05 PM CDT) Hemoglobin 13.8 11.6 - 15.0 g/dL 06/19/2024 [...] L AB BLOOD ADD-ON Performing Organization Address City/[facility]/ZIP Co de Phone Number [facility] [address] [address], [facility] [place] [facility]- [facility] & [address] [address] * (ABNORMAL) Troponin T, Baseline with 2 Hour/6 Hour Reflex Biomarker Panel (06/19/2024 7:04 PM CDT) [facility] Troponin T, Baseline, 5th gen 520(H) <=10 ng/L 06/19/2024 7:25 PM CDT MEDHAT Comment:Consider acute myoca rdial injury Blood (Blood, Venous) 06/19/2024 7:04 PM CDT 06/19/2024 7:07 PM CDT Sayra Robledo P.A.-C., P.A., M.S. L AB BLOOD TROPONIN Performing Organization Address City/[facility]/ZIP Co de Phone Number [facility] [address] [address], [facility] [place] [facility]- [facility] & [address] [address] * NT-Pro B-Type Natriuretic Peptide (BNP) (06/19/2024 7:04 PM CDT) [facility] NT-Pro BNP 140 <=540 pg/mL 06/19/2024 7:34 [...] P.A.-C., P.A., M.S. L AB BLOOD ADD-ON [facility] [address] [place] [address], [facility] [place] [facility]- [facility] [address] [place] [address] * ECG 12 Lead (06/19/2024 6:43 PM CDT) [facility] Ventricular Rate ECG/Min 110 BPM MUSE MI Interval 134 ms MUSE QRSD Interval 74 ms MUSE QT Interval 336 ms MUSE QTC Interval 454 ms MUSE P [place] 57 degrees MUSE R [place] -16 degrees MUSE T Wave [place] 48 degrees MUSE 06/19/2024 6:43 PM CDT 06/19/2024 7:07 PM CDT Impressions MUSE - 06/19/2024 7:07 PM CDT Sinus tachycardia ST elevation in Anteroseptal leads When compared with ECG of 09-Mar-2016 15:06, ST elevation in Anteroseptal leads is now present Reviewed by JOSSELYN Castañeda Narrative Procedure Note Xu Umanzor M.D., Ph.D. - 06/19/[address]: Sin[address] elevation in Anteroseptal leads When compared with ECG of 09-Mar-2016 15:06, ST elevation in Anteroseptal leads is now present Reviewed by JOSSELYN Castañeda Sayra Robledo P.A.-C., PInés, M.S. E CG ORDERABLES MUSE NA documented in this encounter Visit Diagnoses Diagnosis Non-ST Elevation Myocardial Infarction (HCC)- Primary documented in this encounter Administered Medications Inactive Administered Medications - up to 3 most recent administrations Medication Order MAR Action Action Date Dose Rate Site acetaminophen tablet 1,000 mg (TylenoL) 1,000 mg, oral, Once, On Wed06/19/24 at 5, For 1 dose Given 06/19/2024 8:37 PM CDT 1,000 mg aspirin 81 mg chewable tablet - ADS Override Pull Starting on Wed06/19/24 at 193, For 1 dose, Created by cabinet override aspirin chewable tablet 324 mg 324 mg, oral, Once, On Wed06/19/24 at 1932, For 1 dose Given 06/19/2024 7:35 PM CDT 324 mg heparin (porcine) 1,000 unit/mL injection 1,900 Units 1,900 Units (rounded from 1,944 Units = 30 Units/kg ? 64.8 kg Dosing weight), intravenous, As needed, antiXa 0.1-0.19, Starting on Wed06/19/24 at 1957, Intensity type: Moderate, Anti-Xa < 0.1: Loading Dose (Units/kg): 60, Anti-Xa 0.1-0.19: Loading Dose (Units/kg): 30, Anti-Xa > 0.19: Loading Dose (Units/kg): 0 heparin (porcine) 1,000 unit/mL injection 3,900 Units 3,900 Units (rounded from 3,888 Units = 60 Units/kg ? 64.8 kg Dosing weight), intravenous, Once, On Wed06/19/24 at 1959, For 1 dose, Initial Loading Dose Given 06/19/2024 8:24 PM CDT 3,900 Units heparin (porcine) 1,000 unit/mL injection 3,900 Units 3,900 Units (rounded from 3,888 Units = 60 Units/kg ? 64.8 kg Dosing weight), intravenous, As needed, antiXa less than 0.1, Starting on Wed06/19/24 at 1956, Intensity type: Moderate, Anti-Xa < 0.1: Loading Dose (Units/kg): 60, Anti-Xa 0.1-0.19: Loading Dose (Units/kg): 30, Anti-Xa > 0.19: Loading Dose (Units/kg): 0 heparin (porcine) 100 Units/mL in NaCl 0.45% 250 mL infusion 0-30 Units/kg/hr ? 64.8 kg Dosing weight (0-19.44 mL/hr), intravenous, Continuous, Starting on Wed06/19/24 at 1958, 25,000 Units in 250 mL, Intensity type: [...] until anti-Xa less than 1.2 Rate/Dose Verify 06/19/2024 8:28 PM CDT 12 Units/kg/hr 7.78 mL/hr New Bag 06/19/2024 8:24 PM CDT 12 Units/kg/hr 7.78 mL/h r NaCl 0.9 % bolus 1,000 mL 1,000 mL, intravenous, at 2,000 mL/hr, Administer over 30 Minutes, Once, On Wed06/19/24 at 1853, For 1 dose New Bag 06/19/2024 7:44 PM CDT 1,000 mL 2000 mL/hr documented in this encounter Active and Recently Administered Medications Times are shown in CDT. Scheduled Medication Order 06/17/2024 06/18/2024 06/19/2024 acetaminophen tablet 1,000 mg (TylenoL) (COMPLETED) 1,000 mg, oral, Once, On Wed06/19/24 at 2034, For 1 dose 2036 (Given - Provid er: Daiana Saucedo RQuyenN.) aspirin chewable tablet 324 mg (COMPLETED) 324 mg, oral, Once, On Wed06/19/24 at 193, For 1 dose 1934 (Given - Provid er: Vashti OrantesN.) heparin (porcine) 1,000 unit/mL injection 3,900 Units (COMPLETED) 3,900 Units (rounded from 3,888 Units = 60 Units/kg ? 64.8 kg Dosing weight), intravenous, Once, On Wed06/19/24 at 1959, For 1 dose, Initial Loading Dose 2023 (Given - Provid er: Daiana Saucedo R.N. - Comment: Double checked by Rhina Galicia RN) NaCl 0.9 % bolus 1,000 mL (COMPLETED) 1,000 mL, intravenous, at 2,000 mL/hr, Administer over 30 Minutes, Once, On Wed06/19/24 at 1853, For 1 dose 1943 (New Bag - Prov ider: Daiana Saucedo R.N.)2122 (Stopped - Provider: Daiana Saucedo R.N.) Continuous Medication Order 06/17/2024 06/18/2024 06/19/2024 heparin (porcine) 100 Units/mL in NaCl 0.45% 250 mL infusion 0-30 Units/kg/hr ? 64.8 kg Dosing weight (0-19.44 mL/hr), intravenous, Continuous, Starting on Wed06/19/24 at 1959, 25,000 Units in 250 mL, Intensity type: [...] 2 hours until anti-Xa less than 1.2 2023 (New Bag - Prov ider: Daiana Saucedo R.N. - Comment: Double checked by Rhina Galicia RN)2027 (Rate/Dose Verify - Provider: Daiana Saucedo R.N.)2122 (Continue to External Healthcare Facility - Provider: Daiana Saucedo R.N.) PRN Medication Order 06/17/2024 06/18/2024 06/19/2024 heparin (porcine) 1,000 unit/mL injection 1,900 Units(Linked Group 1) 1,900 Units (rounded from 1,944 Units = 30 Units/kg ? 64.8 kg Dosing weight), intravenous, As needed, antiXa 0.1-0.19, Starting on Wed06/19/24 at 1956, Intensity type: Moderate, Anti-Xa < 0.1: Loading Dose (Units/kg): 60, Anti-Xa 0.1-0.19: Loading Dose (Units/kg): 30, Anti-Xa > 0.19: Loading Dose (Units/kg): 0 heparin (porcine) 1,000 unit/mL injection 3,900 Units(Linked Group 1) 3,900 Units (rounded from 3,888 Units = 60 Units/kg ? 64.8 kg Dosing weight), intravenous, As needed, antiXa less than 0.1, Starting on Wed06/19/24 at 1956, Intensity type: Moderate, Anti-Xa < 0.1: Loading Dose (Units/kg): 60, Anti-Xa 0.1-0.19: Loading Dose (Units/kg): 30, Anti-Xa > 0.19: Loading Dose (Units/kg): 0 Linked Groups Order Group 1: heparin (porcine) 1,000 unit/mL injection 1,900 UnitsJump to med 1,900 Units (rounded from 1,944 Units = 30 Units/kg ? 64.8 kg Dosing weight), intravenous, As needed, antiXa 0.1-0.19, Starting on Wed06/19/24 at 1956, Intensity type: Moderate, Anti-Xa < 0.1: Loading Dose (Units/kg): 60, Anti-Xa 0.1-0.19: Loading Dose (Units/kg): 30, Anti-Xa > 0.19: Loading Dose (Units/kg): 0 Or heparin (porcine) 1,000 unit/mL injection 3,900 UnitsJump to med 3,900 Units (rounded from 3,888 Units = 60 Units/kg ? 64.8 kg Dosing weight), intravenous, As needed, antiXa less than 0.1, Starting on Wed06/19/24 at 1956, Intensity type: Moderate, Anti-Xa < 0.1: Loading Dose (Units/kg): 60, Anti-Xa 0.1-0.19: Loading Dose (Units/kg): 30, Anti-Xa > 0.19: Loading Dose (Units/kg): 0 documented in this encounter Additional Health Concerns Assessment Noted Time PHQ-9 Depression Total Score: 0 01/10/20 20 2:42 PM CDT documented as of this encounter Care Teams Tax Collection Coordinator Relationship Specialty Start Date End Date Elsewhere, Pcp PCP - General Internal Medicine 03/05/23 documented as of this encounter
--- NOTE | 2024-07-05 13:00 | MR_ITS ---
[address] [address] Phone:?[phone] Fax:?[phone] Referring Physician Information: Luis Jamison M.D. [id number] [facility] [address] Phone:?[phone] Fax:?[phone] Patient:Kendrick Ceballos D.O.B:?1955 Sex:?Female Phone:?[phone] [facility] MRN:?[id number] Exam Date:?07/05/2024 EXAM: MRI of the LEFT SHOULDER, without contrast CLINICAL: Evaluate for left shoulder arthritis and rotator cuff tear. COMPARISONS: X-rays dated 06/23/2024. TECHNICAL: Multiplanar multisequence MRI of the left shoulder was obtained. SEDATION: None. CONTRAST: None. FINDINGS: Rotator cuff: Supraspinatus/Infraspinatus: There is mild tendinosis and mild partial interstitial insertional tearing of the distal supraspinatus tendon. Infraspinatus tendon appears unremarkable. No significant fatty atrophy of the muscle bellies. Teres minor: No tendinosis, tear or atrophy. Subscapularis: No tendinosis, tear or atrophy. Bursae: Subacromial-subdeltoid: Minimal bursal edema. Subcoracoid: No significant bursal fluid. Coracoacromial arch: Acromion morphology: Type II. No os acromiale. Acromiohumeral space: Within normal limits. Coracohumeral space: Within normal limits. Biceps tendon, long head: Intraarticular and extraarticular segments intact without rupture, tendinopathy or displacement. There is moderate fluid and mild synovitis about the imaged proximal extra-articular tendon. Glenohumeral joint: Small to moderate-sized glenohumeral joint effusion is present. There is low signal synovitis or intra-articular bodies within the subscapularis recess on sagittal series 8 images 18-19 with mild synovitis/small bodies also noted within the axillary recess on axial series 3.2 image 52. Articular cartilage: There is full-thickness chondral loss involving the glenoid and adjacent medial humeral head. Full-thickness chondral loss involves the superior humeral head on coronal series 4 image 11 with deep chondral fissuring involving the peripheral superior humeral head on coronal series 4 images 14-15. Capsule: No convincing evidence of capsular thickening or injury. Labrum: There is ill-defined fraying/tearing throughout the labrum. No perilabral cyst identified. Bones: Relatively mild degenerative peripheral marginal spurring involving the glenohumeral joint with mild subchondral reactive marrow edema involving the glenoid. No evidence of fracture. Acromioclavicular joint: Mild changes of arthrosis. No AC joint injury/widening. IMPRESSION: 1. Mild tendinosis and mild partial interstitial insertional tearing of the distal supraspinatus tendon. No additional evidence of rotator cuff tear. 2. 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 Ill-defined fraying/tearing throughout the glenoid labrum. Small to moderate-sized glenohumeral joint effusion with internal synovitis/bodies. 3. Moderate fluid and mild synovitis about the imaged proximal extra-articular long head biceps tendon. No biceps tendon tear. 4. Mild AC joint arthrosis. [facility] Electronically signed on 07/05/2024 2:39:00 PM by Prabhu Ceballos D.O.
== END 2024-07-05 12:48 | disposition home or self-care (01) ==
LOC: MRI 12:50
PROVIDERS: Visit Provider Orthopaedic Surgery Sports Medicine
DX: M25.512 Pain in left shoulder (principal); M19.012 Primary osteoarthritis, left shoulder; S46.012A Strain of muscle(s) and tendon(s) of the rotator cuff of left shoulder, initial encounter; M75.102 Unspecified rotator cuff tear or rupture of left shoulder, not specified as traumatic
CPT/HCPCS: 73221